=== PATIENT | male | born 1935 | race Caucasian/White ===

== ENCOUNTER 2016-09-17 14:38 | Inpatient (IN) | payer MEDICARE ==
[2016-09-17] MEDS ORDERED: FUROSEMIDE 10 MG/ML 4 ML VIAL IV STA (15:11)
[2016-09-17] MEDS ORDERED: NITROGLYCERIN OINT 1 INCH/GM PACKET TOPICAL STA (15:11)
--- NOTE | 2016-09-17 15:14 | ED ---
General Adult HPI - General Chief complaint: Recheck/Abnormal Lab/Rx Stated complaint: leg edema Time Seen by Provider: 09/17/16 15:01 Source: patient, RN notes reviewed Mode of arrival: wheelchair Limitations: no limitations - History of Present Illness Initial comments: Patient is a pleasant 81-year-old male presenting to the emergency department with leg edema. Patient did see Kary at Dr. Chen's office earlier today. Patient was advised Hospital for leg edema and bradycardia. Patient states otherwise he feels fine. Patient denies any chest pain. No dyspnea. Patient refuses breathing treatment states he regular does wheeze and takes nebulizers at home. Patient does not feel a dizziness at this time. No leg pain. No fevers. - Related Data Home Medications Medication Instructions Recorded Confirmed Atenolol [Tenormin] 25 mg PO BID 05/22/14 09/17/16 Donepezil HCl [Aricept] 10 mg PO BID 05/22/14 09/17/16 Escitalopram [Lexapro] 10 mg PO DAILY 05/22/14 09/17/16 Isosorbide Mononitrate [Imdur] 60 mg PO QAM 05/22/14 09/17/16 Albuterol Sulfate [Proair Hfa] 1 puff INHALATION RT-Q6H PRN 04/22/16 09/17/16 Atorvastatin [Lipitor] 10 mg PO DAILY 04/22/16 09/17/16 Azelastine HCl [Astepro] 2 spray EA NOSTRIL BID 04/22/16 09/17/16 Fluticasone/Salmeterol [Advair 1 puff INHALATION RT-BID 04/22/16 09/17/16 250-50 Diskus] Montelukast [Singulair] 10 mg PO DAILY 04/22/16 09/17/16 Potassium Chloride [K-Tab ER] 10 meq PO DAILY 04/22/16 09/17/16 Cholecalciferol [Vitamin D3] 1,000 unit PO DAILY 07/11/16 09/17/16 Furosemide 40 mg PO DAILY 07/11/16 09/17/16 Hydrochlorothiazide [Hydrodiuril] 25 mg PO DAILY 07/11/16 09/17/16 Aspirin EC [Ecotrin Low Dose] 81 mg PO DAILY 09/17/16 09/17/16 Mirabegron [Myrbetriq] 25 mg PO DAILY 09/17/16 09/17/16 Pramipexole Di-HCl [Mirapex] 0.5 - 1 mg PO HS 09/17/16 09/17/16 Allergies Allergy/AdvReac Type Severity Reaction Status Date / Time No Known Allergies Allergy Verified 09/17/16 15:36 Review of Systems ROS Statement: Those systems with pertinent positive or pertinent negative responses have been documented in the HPI. ROS Other: All systems not noted in ROS Statement are negative. Constitutional: Denies: fever, chills Eyes: Denies: eye pain ENT: Denies: ear pain Respiratory: Denies: cough, dyspnea Cardiovascular: Reports: edema. Denies: chest pain, palpitations Endocrine: Denies: fatigue Gastrointestinal: Denies: abdominal pain Genitourinary: Denies: dysuria Musculoskeletal: Denies: back pain Skin: Denies: rash Neurological: Denies: weakness Past Medical History Past Medical History: Asthma, Coronary Artery Disease (CAD), Cancer, Heart Failure, COPD, Dementia, Hyperlipidemia, Hypertension, Myocardial Infarction ([place] ) Additional Past Medical History / Comment(s): 1999 R lung cancer with surgery,04/22/16 admitted with CHF- EF 50-55% with metabolic encephalopathy, diverticular dx , bilateral tinnitis on occasion, sinus problems, pt denies any pancreatic problems (was documented in old medical record). Last Myocardial Infarction Date:: Unknown History of Any Multi-Drug Resistant Organisms: None Reported Past Surgical History: Adenoidectomy, Coronary Bypass/CABG, Heart Catheterization, Hernia Repair, Tonsillectomy Additional Past Surgical History / Comment(s): 1999 R lung resection, 2007 AAA repair, L caratid endartectomy, bilateral cataract surgery, inguinal hernia surgery and anothe large abdominal hernia surgery per pt, colonoscopy. Past Anesthesia/Blood Transfusion Reactions: No Reported Reaction Past Psychological History: No Psychological Hx Reported Additional Psychological History / Comment(s): Pt resides with his spouse. He uses no assistive device. He drives. Smoking Status: Former smoker Past Alcohol Use History: None Reported, Rare Additional Past Alcohol Use History / Comment(s): Pt smoked from [id number]. He has a rare glass of wine. Past Drug Use History: None Reported - Past Family History Mother Family Medical History: Rheumatoid Arthritis (RA) Father History Unknown: Yes General Exam Limitations: no limitations General appearance: alert, in no apparent distress Head exam: Present: atraumatic, normocephalic Eye exam: Present: normal appearance, PERRL ENT exam: Present: normal oropharynx Neck exam: Present: normal inspection Respiratory exam: Present: wheezes Cardiovascular Exam: Present: bradycardia, irregular rhythm GI/Abdominal exam: Present: soft. Absent: tenderness Extremities exam: Present: pedal edema (+3 bilateral). Absent: calf tenderness Neurological exam: Present: alert Psychiatric exam: Present: normal affect, normal mood Skin exam: Absent: rash Course Vital Signs 09/17/16 09/17/16 09/17/16 14:46 15:01 15:40 Temperature 97.0 F L Pulse Rate 52 L 50 L Pulse Rate [ 50 L [employer] ] Respiratory 18 Rate Blood Pressure 164/69 O2 Sat by Pulse 91 L 96 Oximetry EKG Findings - EKG Comments: EKG Findings:: Sinus bradycardia at 59. First-degree AV block with a TN of 252. Frequent consecutive PVCs. QRS 92. QT 470. QTc 465. Normal axis. Normal QRS. Nonspecific ST-T. Medical Decision Making - Medical Decision Making Patient reexamined and resting comfortably in bed. Patient and family updated on results and plan. Case was discussed in detail with Dr. Gomez, who will admit for Dr. chen. - Lab Data Result diagrams: 09/17/16 15:16 09/17/16 15:16 Lab Results 09/17/16 09/17/16 09/17/16 Range/Units 15:16 15:16 15:16 WBC 6.5 (3.8-10.6) k/uL RBC 4.60 (4.30-5.90) m/uL Hgb 13.5 (13.0-17.5) gm/dL Hct 44.0 (39.0-53.0) % MCV 95.6 (80.0-100.0) fL MCH 29.4 (25.0-35.0) pg MCHC 30.7 L (31.0-37.0) g/dL RDW 13.7 (11.5-15.5) % Plt Count 157 (150-450) k/uL Neutrophils % 56 % Lymphocytes % 30 % Monocytes % 9 % Eosinophils % 2 % Basophils % 0 % Neutrophils # 3.7 (1.3-7.7) k/uL Lymphocytes # 1.9 (1.0-4.8) k/uL Monocytes # 0.6 (0-1.0) k/uL Eosinophils # 0.2 (0-0.7) k/uL Basophils # 0.0 (0-0.2) k/uL Hypochromasia Moderate PT (9.0-12.0) sec INR (<1.1) APTT (22.0-30.0) sec Sodium 145 (137-145) mmol/L Potassium 3.9 (3.5-5.1) mmol/L Chloride 102 (98-107) mmol/L Carbon Dioxide 30 (22-30) mmol/L Anion Gap 13 mmol/L BUN 33 H (9-20) mg/dL Creatinine 1.57 H (0.66-1.25) mg/dL Est GFR (MDRD) Af Amer 51 (>60 ml/min/1.73 sqM) Est GFR (MDRD) Non-Af 42 (>60 ml/min/1.73 sqM) Glucose 93 (74-99) mg/dL Calcium 8.7 (8.4-10.2) mg/dL Total Bilirubin 1.2 (0.2-1.3) mg/dL AST 27 (17-59) U/L ALT 30 (21-72) U/L Alkaline Phosphatase 72 (38-126) U/L Total Creatine Kinase 46 L (55-170) U/L CK-MB (CK-2) 1.1 (0.0-2.4) ng/mL CK-MB (CK-2) Rel Index 2.4 Troponin I 0.018 (0.000-0.034) ng/mL NT-Pro-B Natriuret Pep pg/mL Total Protein 6.4 (6.3-8.2) g/dL Albumin 3.4 L (3.5-5.0) g/dL 09/17/16 09/17/16 Range/Units 15:16 15:16 WBC (3.8-10.6) k/uL RBC (4.30-5.90) m/uL Hgb (13.0-17.5) gm/dL Hct (39.0-53.0) % MCV (80.0-100.0) fL MCH (25.0-35.0) pg MCHC (31.0-37.0) g/dL RDW (11.5-15.5) % Plt Count (150-450) k/uL Neutrophils % % Lymphocytes % % Monocytes % % Eosinophils % % Basophils % % Neutrophils # (1.3-7.7) k/uL Lymphocytes # (1.0-4.8) k/uL Monocytes # (0-1.0) k/uL Eosinophils # (0-0.7) k/uL Basophils # (0-0.2) k/uL Hypochromasia PT 12.1 H (9.0-12.0) sec INR 1.2 (<1.1) APTT 25.8 (22.0-30.0) sec Sodium (137-145) mmol/L Potassium (3.5-5.1) mmol/L Chloride (98-107) mmol/L Carbon Dioxide (22-30) mmol/L Anion Gap mmol/L BUN (9-20) mg/dL Creatinine (0.66-1.25) mg/dL Est GFR (MDRD) Af Amer (>60 ml/min/1.73 sqM) Est GFR (MDRD) Non-Af (>60 ml/min/1.73 sqM) Glucose (74-99) mg/dL Calcium (8.4-10.2) mg/dL Total Bilirubin (0.2-1.3) mg/dL AST (17-59) U/L ALT (21-72) U/L Alkaline Phosphatase (38-126) U/L Total Creatine Kinase (55-170) U/L CK-MB (CK-2) (0.0-2.4) ng/mL CK-MB (CK-2) Rel Index Troponin I (0.000-0.034) ng/mL NT-Pro-B Natriuret Pep 6450 pg/mL Total Protein (6.3-8.2) g/dL Albumin (3.5-5.0) g/dL - Radiology Data Interpreted by me: Chest x-ray concerning for congestive heart failure Disposition Clinical Impression: CHF (congestive heart failure) Disposition: ADMITTED IP TO THIS HOSP
[2016-09-17 15:24] LABS: Basophils % (A) 0 %; CH 29.7; CHCM 31.3; Eosinophils # (A) 0.2 k/uL (0-0.7); Eosinophils % (A) 2 %; HDW 2.93; HGB 13.5 gm/dL (13.0-17.5); Hypochromasia Moderate; Luc # (Auto) 0.18; Luc % (Auto) 3; Lymphocytes # (A) 1.9 k/uL (1.0-4.8); Lymphocytes % (A) 30 %; MCH 29.4 pg (25.0-35.0); MCHC 30.7 g/dL (31.0-37.0); MCV 95.6 fL (80.0-100.0); Mean Platelet Volume 8.2; Monocytes # (A) 0.6 k/uL (0-1.0); Monocytes % (A) 9 %; Neutrophils # (A) 3.7 k/uL (1.3-7.7); Neutrophils % (A) 56 %; RDW 13.7 % (11.5-15.5); WBC 6.5 k/uL (3.8-10.6); WBC (Perox) 6.71
[2016-09-17 15:32] LABS: INR 1.2 (<1.1); Partial Thromboplastin Time 25.8 sec (22.0-30.0); Prothrombin Time 12.1 sec (9.0-12.0)
[2016-09-17 15:33] LABS: Calcium 8.7 mg/dL (8.4-10.2); Potassium 3.9 mmol/L (3.5-5.1); Total Bilirubin 1.2 mg/dL (0.2-1.3); Total Protein 6.4 g/dL (6.3-8.2)
[2016-09-17 15:55] LABS: Creatine Kinase MB 1.1 ng/mL (0.0-2.4); Troponin I 0.018 ng/mL (0.000-0.034)
[2016-09-17] MEDS ORDERED: ASPIRIN 325 MG TAB PO STA (16:00)
--- NOTE | 2016-09-17 16:24 | XR ---
EXAMINATION TYPE: XR chest 2V DATE OF EXAM: 09/17/2016 3:50 PM COMPARISON: 07/11/2016 and 11/04/2012 HISTORY: 81-year-old male with difficulty breathing and leg swelling TECHNIQUE: AP and lateral views FINDINGS: Median sternotomy wires are present. Heart appears enlarged. Diffuse interstitial prominence further assessed as compared to prior exam. Right hilar prominence appears similar to 2013. There is increase d left basilar and retrocardiac opacity and some other scattered focal opacity suggested in the right midlung. IMPRESSION: 1. COPD. Correlate for superimposed CHF and pulmonary vascular congestion. 2. Unable to exclude small left pleural effusion with adjacent atelectasis and/or consolidation at th e left base. 3. Other scattered areas of focal opacity such as in the right midlung. Correlate to exclude any symp toms of pneumonia. These could represent areas of more confluent edema. Follow-up after treatment to ensure complete clearance.
[2016-09-17] MEDS ORDERED: IPRATROPIUM-ALBUTEROL 3 ML NEB INHALATION PRN ×2 (16:34→17:56)
[2016-09-17] MEDS: NITROGLYCERIN OINT 1 INCH/GM PACKET TOPICAL SCH ×2 (17:43→22:01)
[2016-09-17] MEDS ORDERED: ALBUTEROL NEBULIZED 2.5 MG/3 ML INHALATION PRN (17:59)
[2016-09-17] MEDS: MONTELUKAST 10 MG TAB PO SCH (18:34)
[2016-09-17] MEDS: ATORVASTATIN 10 MG TAB PO SCH (18:34)
[2016-09-17] MEDS: CHOLECALCIFEROL 1,000 UNIT TAB PO SCH (18:34)
[2016-09-17] MEDS ORDERED: ATENOLOL 50 MG TAB PO SCH (21:00)
[2016-09-17] MEDS: SYMBICORT 80-4.5 MCG INHALER INHALATION SCH (21:03)
[2016-09-17] MEDS: IPRATROPIUM-ALBUTEROL 3 ML NEB INHALATION SCH (21:04)
[2016-09-17] MEDS: DONEPEZIL 10 MG TAB PO SCH (21:59)
[2016-09-17] MEDS: PRAMIPEXOLE 0.5 MG TAB PO SCH (22:00)
[2016-09-17] MEDS: FUROSEMIDE 10 MG/ML 4 ML VIAL IV SCH (22:01)
[2016-09-18] MEDS: AZELASTINE 137MCG/SPRAY EA NOSTRIL SCH ×3 (00:09→21:06)
[2016-09-18 06:40] LABS: Calcium 9.4 mg/dL (8.4-10.2); Potassium 4.2 mmol/L (3.5-5.1)
[2016-09-18 06:45] LABS: Basophils % (A) 1 %; CH 29.6; CHCM 31.1; Eosinophils # (A) 0.2 k/uL (0-0.7); Eosinophils % (A) 3 %; HCT 46.8 % (39.0-53.0); HDW 2.92; HGB 14.7 gm/dL (13.0-17.5); Hypochromasia Moderate; Luc # (Auto) 0.15; Luc % (Auto) 2; Lymphocytes % (A) 27 %; MCH 30.1 pg (25.0-35.0); MCHC 31.5 g/dL (31.0-37.0); MCV 95.4 fL (80.0-100.0); Mean Platelet Volume 7.8; Monocytes # (A) 0.6 k/uL (0-1.0); Monocytes % (A) 8 %; Neutrophils # (A) 4.4 k/uL (1.3-7.7); Neutrophils % (A) 60 %; RDW 13.7 % (11.5-15.5); WBC 7.4 k/uL (3.8-10.6)
[2016-09-18] MEDS: ATORVASTATIN 10 MG TAB PO SCH (08:11)
[2016-09-18] MEDS: ASPIRIN 81 MG CHEW PO SCH (08:11)
[2016-09-18] MEDS: FUROSEMIDE 10 MG/ML 4 ML VIAL IV SCH ×3 (08:11→21:07)
[2016-09-18] MEDS: DONEPEZIL 10 MG TAB PO SCH ×2 (08:12→21:06)
[2016-09-18] MEDS: ESCITALOPRAM 10 MG TAB PO SCH (08:12)
[2016-09-18] MEDS: ISOSORBIDE MONONITRATE ER 60 MG TAB.ER.24H PO SCH (08:12)
[2016-09-18] MEDS: NITROGLYCERIN OINT 1 INCH/GM PACKET TOPICAL SCH ×4 (08:13→21:07)
[2016-09-18] MEDS: MONTELUKAST 10 MG TAB PO SCH (08:13)
[2016-09-18] MEDS: IPRATROPIUM-ALBUTEROL 3 ML NEB INHALATION SCH ×4 (08:43→20:43)
[2016-09-18] MEDS: SYMBICORT 80-4.5 MCG INHALER INHALATION SCH ×2 (08:43→20:43)
[2016-09-18] MEDS ORDERED: ATENOLOL 25 MG TAB PO SCH (09:00)
[2016-09-18] MEDS: OXYBUTYNIN XL 5 MG TAB.ER.24 PO SCH (09:14)
--- NOTE | 2016-09-18 09:24 | P.CRDCN ---
History of Present Illness Consult date: 09/18/16 Requesting physician: Trevor Chen Reason for Consult (text): Bilateral leg swelling and redness Chief complaint: Bilateral leg swelling and redness History of present illness: This is a pleasant 81-year-old gentleman who follows regularly with Dr. Mcdonough in the office. He has a known history of hypertension, hyperlipidemia , coronary artery disease with prior bypass surgery, history of lung CA with prior lobectomy, COPD, hypothyroidism, he presents to the hospital with symptoms of bilateral leg swelling and redness which according to the patient has been going on for 5 days or more. Progressively getting worse. He denies any shortness of breath, denies PND or orthopnea. Chest x-ray on admission revealed COPD with mild pulmonary venous congestion. Unable to exclude small left pleural effusion. EKG on admission showed a sinus bradycardia with nonspecific ST-T wave changes and occasional PACs and PVCs. Blood pressure 136/ 60, heart rate in the 50s, 91% on 2 L oxygen. Lab data, WBC 7.4, hemoglobin 14.7, potassium 4.2, BUN 33, creatinine 1.4. Troponin 0.018, BNP level 6450. The patient was initiated on IV Lasix in the emergency room, weight is down 3 kg from admission. He continues to diurese well. At the time of my examination this morning, he denies any shortness of breath, lying flat in bed at the time of my examination. Denies any recent dizziness or lightheadedness, no palpitations, no chest discomfort. Past Medical History Past Medical History: Asthma, Coronary Artery Disease (CAD), Cancer, Heart Failure, COPD, Dementia, Hyperlipidemia, Hypertension, Myocardial Infarction ([place] ) Additional Past Medical History / Comment(s): 1999 R lung cancer with surgery,04/22/16 admitted with CHF- EF 50-55% with metabolic encephalopathy, diverticular dx , bilateral tinnitis on occasion, sinus problems, pt denies any pancreatic problems (was documented in old medical record). Last Myocardial Infarction Date:: Unknown History of Any Multi-Drug Resistant Organisms: None Reported Past Surgical History: Adenoidectomy, Coronary Bypass/CABG, Heart Catheterization, Hernia Repair, Tonsillectomy Additional Past Surgical History / Comment(s): 1999 R lung resection, 2007 AAA repair, L caratid endartectomy, bilateral cataract surgery, inguinal hernia surgery and anothe large abdominal hernia surgery per pt, colonoscopy. Past Anesthesia/Blood Transfusion Reactions: No Reported Reaction Past Psychological History: No Psychological Hx Reported Additional Psychological History / Comment(s): Pt resides with his spouse. He uses no assistive device. He drives. Smoking Status: Former smoker Past Alcohol Use History: None Reported, Rare Additional Past Alcohol Use History / Comment(s): Pt smoked from [id number]. He has a rare glass of wine. Past Drug Use History: None Reported - Past Family History Mother Family Medical History: Rheumatoid Arthritis (RA) Father History Unknown: Yes Medications and Allergies Home Medications Medication Instructions Recorded Confirmed Type Atenolol [Tenormin] 25 mg PO BID 05/22/14 09/17/16 History Donepezil HCl [Aricept] 10 mg PO BID 05/22/14 09/17/16 History Escitalopram [Lexapro] 10 mg PO DAILY 05/22/14 09/17/16 History Isosorbide Mononitrate [Imdur] 60 mg PO QAM 05/22/14 09/17/16 History Albuterol Sulfate [Proair Hfa] 1 puff INHALATION RT-Q6H PRN 04/22/16 09/17/16 History Atorvastatin [Lipitor] 10 mg PO DAILY 04/22/16 09/17/16 History Azelastine HCl [Astepro] 2 spray EA NOSTRIL BID 04/22/16 09/17/16 History Fluticasone/Salmeterol [Advair 1 puff INHALATION RT-BID 04/22/16 09/17/16 History 250-50 Diskus] Montelukast [Singulair] 10 mg PO DAILY 04/22/16 09/17/16 History Potassium Chloride [K-Tab ER] 10 meq PO DAILY 04/22/16 09/17/16 History Cholecalciferol [Vitamin D3] 1,000 unit PO DAILY 07/11/16 09/17/16 History Furosemide 40 mg PO DAILY 07/11/16 09/17/16 History Hydrochlorothiazide [Hydrodiuril] 25 mg PO DAILY 07/11/16 09/17/16 History Aspirin EC [Ecotrin Low Dose] 81 mg PO DAILY 09/17/16 09/17/16 History Mirabegron [Myrbetriq] 25 mg PO DAILY 09/17/16 09/17/16 History Pramipexole Di-HCl [Mirapex] 0.5 - 1 mg PO HS 09/17/16 09/17/16 History Allergies Allergy/AdvReac Type Severity Reaction Status Date / Time No Known Allergies Allergy Verified 09/17/16 15:36 Physical Exam Vitals: Vital Signs Temp Pulse Pulse Resp BP BP Pulse Ox 09/18/16 09:01 56 L 09/18/16 08:43 56 L 09/18/16 08:00 97.1 F L 48 L 16 137/61 91 L 09/18/16 03:35 96.6 F L 50 L 16 131/60 93 L 09/18/16 00:00 97.2 F L 56 L 17 161/71 93 L 09/17/16 21:15 55 L 09/17/16 21:05 55 L 93 L 09/17/16 20:00 96.6 F L 52 L 19 141/63 90 L 09/17/16 17:32 55 L 18 09/17/16 17:31 96.8 F L 55 L 18 130/60 91 L 09/17/16 16:41 97.0 F L 59 L 16 163/71 97 09/17/16 16:15 97.8 F 55 L 18 130/60 91 L 09/17/16 16:01 51 L 150/79 Intake and Output 09/17/16 09/18/16 09/18/16 22:59 06:59 14:59 Intake Total 476 Output Total 550 1175 200 Balance -74 -1175 -200 Intake: Oral 476 Output: Urine 550 1175 200 Other: Voiding Method Urinal Urinal Urinal # Voids 1 1 Weight 80.739 kg 77.6 kg PHYSICAL EXAMINATION: HEENT: Head is atraumatic, normocephalic. Pupils equal, round. Neck is supple. There is no elevated jugular venous pressure. HEART EXAMINATION: S1 and S2 systolic murmur is heard. CHEST EXAMINATION: Lungs reveal diminished air entry bilaterally, left greater than the right, scattered fine wheezing throughout. ABDOMEN: Soft, nontender. Bowel sounds are heard. No organomegaly noted. EXTREMITIES: 2+ peripheral pulses with 1+ evidence of peripheral edema and no calf tenderness noted. Bilateral lower leg redness noted NEUROLOGIC patient is awake, alert and oriented -3. . Results 09/18/16 05:46 09/18/16 05:46 CBC 09/18/16 Range/Units 05:46 WBC 7.4 (3.8-10.6) k/uL RBC 4.90 (4.30-5.90) m/uL Hgb 14.7 (13.0-17.5) gm/dL Hct 46.8 (39.0-53.0) % Plt Count 172 (150-450) k/uL Comprehensive Metabolic Panel 09/18/16 Range/Units 05:46 Sodium 144 (137-145) mmol/L Potassium 4.2 (3.5-5.1) mmol/L Chloride 99 (98-107) mmol/L Carbon Dioxide 31 H (22-30) mmol/L BUN 33 H (9-20) mg/dL Creatinine 1.40 H (0.66-1.25) mg/dL Glucose 79 (74-99) mg/dL Calcium 9.4 (8.4-10.2) mg/dL Current Medications Generic Name Dose Route Start Last Admin Trade Name Freq PRN Reason Stop Dose Admin Albuterol Sulfate 2.5 mg 09/17/16 17:59 Ventolin Nebulized INHALATION RT-Q4H PRN Shortness Of Breath Or Wheezing Albuterol/Ipratropium 3 ml 09/17/16 20:00 09/18/16 08:43 Duoneb 0.5 Mg-3 Mg/3 Ml Soln INHALATION 3 ml RT-QID LOPEZ Administration Aspirin 81 mg 09/18/16 09:00 09/18/16 08:11 Aspirin PO 81 mg DAILY LOPEZ Administration Atenolol 25 mg 09/18/16 09:00 09/18/16 08:12 Tenormin PO 25 mg BID LOPEZ Administration Atorvastatin Calcium 10 mg 09/17/16 18:00 09/18/16 08:11 Lipitor PO 10 mg DAILY LOPEZ Administration Azelastine HCl 2 spray 09/17/16 21:00 09/18/16 08:11 Astepro EA NOSTRIL 2 spray BID LOPEZ Administration Budesonide/Formoterol Fumarate 2 puff 09/17/16 20:00 09/18/16 08:43 Symbicort 80-4.5 Mcg Inhaler INHALATION 2 puff RT-BID LOPEZ Administration Cholecalciferol 1,000 unit 09/17/16 18:00 09/17/16 18:34 Vitamin D3 PO Not Given 1200 LOPEZ Donepezil HCl 10 mg 09/17/16 21:00 09/18/16 08:12 Aricept PO 10 mg BID LOPEZ Administration Escitalopram Oxalate 10 mg 09/18/16 09:00 09/18/16 08:12 Lexapro PO 10 mg DAILY LOPEZ Administration Furosemide 40 mg 09/18/16 00:00 09/18/16 08:11 Lasix IV 40 mg Q8H LOPEZ Administration Isosorbide Mononitrate 60 mg 09/18/16 09:00 09/18/16 08:12 Imdur PO 60 mg QAM LOPEZ Administration Montelukast Sodium 10 mg 09/17/16 18:00 09/18/16 08:13 Singulair PO 10 mg DAILY LOPEZ Administration Nitroglycerin 1 inch 09/17/16 18:00 09/18/16 08:13 Nitro-Bid Oint TOPICAL Not Given QID [facility] Oxybutynin Chloride 5 mg 09/18/16 09:00 Ditropan Xl PO DAILY [facility] Pramipexole Dihydrochloride 1 mg 09/17/16 21:00 09/17/16 22:00 Mirapex PO 1 mg HS LOPEZ Administration Sodium Chloride 10 ml 09/17/16 21:00 09/18/16 08:14 Saline Flush IV 10 ml BID LOPEZ Administration Intake and Output 09/17/16 09/18/16 09/18/16 22:59 06:59 14:59 Intake Total 476 Output Total 550 1175 200 Balance -74 -1175 -200 Intake: Oral 476 Output: Urine 550 1175 200 Other: Voiding Method Urinal Urinal Urinal # Voids 1 1 Weight 80.739 kg 77.6 kg 09/18/16 05:46 09/18/16 05:46 EKG Interpretations (text) EKG shows a sinus bradycardia with occasional PACs and PVCs, nonspecific ST-T wave changes. Assessment and Plan Plan: Assessment and plan #1 congestive cardiac failure, diastolic in nature, most recent echocardiogram with Doppler study was performed in April of last year which revealed an ejection fraction of 50-55%, moderate pulmonary hypertension. #2 hypertension #3 hyperlipidemia #4 known history of coronary artery disease with prior bypass surgery #5 COPD #6 hypothyroidism #7 history of lung CA with prior lobectomy. #8 bradycardia Plan Obtain an echocardiogram with Doppler study. We will also continue the patient on current dose of IV Lasix. Check free T4 and TSH, decreased dose of atenolol. Check daily lytes BUN and creatinine along with daily weights. Further recommendations to follow. DNP note has been reviewed, I agree with a documented findings and plan of care. Patient was seen and examined.
[2016-09-18] MEDS ORDERED: ASPIRIN 325 MG TAB PO SCH (12:00)
[2016-09-18] MEDS: CHOLECALCIFEROL 1,000 UNIT TAB PO SCH (13:16)
[2016-09-18] MEDS ORDERED: TEMAZEPAM 7.5 MG CAP PO PRN (13:21)
[2016-09-18] MEDS ORDERED: ALBUTEROL NEBULIZED 2.5 MG/3 ML INHALATION PRN (14:42)
[2016-09-18] MEDS ORDERED: HYDROcodone/APAP 5-325MG 1 EACH TAB PO PRN (14:44)
[2016-09-18] MEDS ORDERED: ALPRAZolam 0.25 MG TAB PO PRN (14:44)
--- NOTE | 2016-09-18 15:45 | HP ---
DATE OF ADMISSION: 09/18/2016 CHIEF COMPLAINT: Bilateral leg swelling and erythema and redness. HISTORY OF PRESENT ILLNESS: This 81-year-old gentleman with a past history of CHF with ejection fraction 50% to 55% ( ) history of COPD, history of dementia, hypertension, history of myocardial infarction, history of right lung cancer with surgery, history of CAD, CABG, history of nicotine dependence being followed by Dr. Trevor Chen as an outpatient is complaining of pain and swelling of both lower limbs for about 1-1/2 weeks. With increasing difficulty, the patient went to Dr. Chen's office and directly admitted to [facility] for further evaluation and treatment. There was no history of any fever, rigors, chills. No history of headache, loss of consciousness, seizures at this time. Cardiology evaluation in progress. PAST MEDICAL HISTORY: History of asthma, history of CAD, CHF, COPD, dementia, hypertension, hyperlipidemia, myocardial infarction, CABG, history of nicotine dependence. Medications prior to admission include home medications are: 1. Mirapex 0.5 to 1 mg q.h.s. 2. K-Tab ER 10 mg p.o. daily. 3. Singulair 10 mg daily. 4. Mirabegron 25 mg p.o. daily. 5. Imdur 60 mg q.a.m. 6. HydroDIURIL 25 mg daily. 7. Lasix 40 mg daily. 8. Advair 250/50 1 puff b.i.d. 9. Lexapro 10 mg p.o. daily. 10. Aricept 10 mg p.o. b.i.d. 11. Vitamin D3 1000 daily. 12. Astepro 2 sprays b.i.d. 13. Lipitor 10 mg p.o. daily. 14. Tenormin 25 mg b.i.d. 15. Ecotrin 81 mg p.o. daily. 16. ProAir HFA 1 puff every 6 hours p.r.n. Allergies are none. FAMILY HISTORY: History of rheumatoid arthritis in the family. SOCIAL HISTORY: Previous history of smoking. Recreational alcohol intake. REVIEW OF SYSTEMS: ENT: Diminished hearing. Diminished vision. CARDIOVASCULAR: No angina, palpitations. RESPIRATORY: As mentioned earlier. GI: No nausea. : No dysuria. NERVOUS: No numbness or weakness. ALLERGY/IMMUNOLOGY: No asthma or hay fever. MUSCULOSKELETAL: As mentioned earlier. HEMATOLOGY/ONCOLOGY: No history of anemia. ENDOCRINE: Negative. CONSTITUTIONAL: Negative. DERMATOLOGY: As mentioned earlier. PSYCHIATRY: As mentioned earlier. PHYSICAL EXAM: Alert and oriented x3. Pulse is 53, blood pressure 123/64, respirations 18, temperature 96.8, pulse ox 94% on 3L. HEENT: Conjunctivae normal. Oral mucosa moist. NECK: Jugular venous distension improved. CARDIOVASCULAR SYSTEM: S1 and S2 muffled. No S3. No S4. RESPIRATORY: Breath sounds diminished in the bases. A few scattered rhonchi. No crackles. Abdomen is soft, nontender. No mass palpable. LEGS: Bilateral leg edema and erythema and tenderness. Pulses diminished bilaterally. NERVOUS SYSTEM: Higher function as mentioned. Moves all 4 limbs. No focal motor or sensory deficits. LYMPHATIC: No lymph nodes palpable in neck, axillae or groin. SKIN: No ulcer, rash or bleeding. Labs at this time show CBC within normal limits. ( ) 1.40 and TSH is 4.98 and free T4 is 1.2. ASSESSMENT: 1. Congestive heart failure, acute exacerbation, with acute on chronic diastolic dysfunction, ejection fraction about 50% to 55%. 2. Bilateral leg cellulitis. 3. Chronic kidney disease stage 3. 4. Bilateral leg edema. 5. Moderate pulmonary hypertension. 6. Hypertension. 7. Hyperlipidemia. 8. History of coronary artery disease, coronary artery bypass grafting. 9. Chronic obstructive pulmonary disease. 10. Hypothyroidism. 11. History of right lung cancer with surgery, lobectomy. 12. History of dementia. 13. History of metabolic encephalopathy. 14. History of adenoidectomy. 15. History of abdominal aortic aneurysm repair. 16. History of cataracts. 17. Remote history of nicotine dependence. 18. FULL CODE. RECOMMENDATIONS AND DISCUSSION: In this 81-year-old gentleman who presented with multiple complex medical issues, we will monitor the patient closely, continue the current medications. Recommend to continue current medications, continue symptomatic treatment. Otherwise, continue with IV diuretics. Monitor fluid- electrolyte balance closely. I would also recommend broad-spectrum IV antibiotics, DVT prophylaxis. Guarded prognosis because of multiple complex medical issues. Further recommendations to follow. A copy of this dictation will be forwarded to Dr. Trevor Chen, who is the primary care physician.
[2016-09-18] MEDS: ceFAZolin 2 GM in SODIUM CHLORIDE 0.9% 100 ML IVPB SCH ×2 (16:13→23:41)
[2016-09-18] MEDS: PRAMIPEXOLE 0.5 MG TAB PO SCH (21:06)
[2016-09-18] MEDS: MELATONIN 3 MG TABLET PO SCH (21:06)
[2016-09-19 06:33] LABS: Basophils % (A) 1 %; CH 29.7; CHCM 31.3; Eosinophils # (A) 0.3 k/uL (0-0.7); Eosinophils % (A) 4 %; HCT 43.4 % (39.0-53.0); HDW 2.92; HGB 13.9 gm/dL (13.0-17.5); Hypochromasia Slight; Luc # (Auto) 0.16; Luc % (Auto) 2; Lymphocytes % (A) 29 %; MCH 30.4 pg (25.0-35.0); MCV 95.2 fL (80.0-100.0); Mean Platelet Volume 7.7; Monocytes # (A) 0.6 k/uL (0-1.0); Monocytes % (A) 8 %; Neutrophils # (A) 3.8 k/uL (1.3-7.7); Neutrophils % (A) 56 %; RBC 4.56 m/uL (4.30-5.90); RDW 13.6 % (11.5-15.5); WBC 6.9 k/uL (3.8-10.6); WBC (Perox) 6.85
[2016-09-19 06:46] LABS: Calcium 8.6 mg/dL (8.4-10.2); Potassium 3.4 mmol/L (3.5-5.1)
[2016-09-19] MEDS: FUROSEMIDE 10 MG/ML 4 ML VIAL IV SCH ×3 (08:25→21:14)
[2016-09-19] MEDS: NITROGLYCERIN OINT 1 INCH/GM PACKET TOPICAL SCH ×4 (08:25→21:14)
[2016-09-19] MEDS: ATORVASTATIN 10 MG TAB PO SCH (08:26)
[2016-09-19] MEDS: MONTELUKAST 10 MG TAB PO SCH (08:26)
[2016-09-19] MEDS: POTASSIUM CHLORIDE ER 10 MEQ TAB.ER.PRT PO SCH (08:26)
[2016-09-19] MEDS: ATENOLOL 25 MG TAB PO SCH (08:27)
[2016-09-19] MEDS: OXYBUTYNIN XL 5 MG TAB.ER.24 PO SCH (08:27)
[2016-09-19] MEDS: ESCITALOPRAM 10 MG TAB PO SCH (08:27)
[2016-09-19] MEDS: ASPIRIN 81 MG CHEW PO SCH (08:27)
[2016-09-19] MEDS: ISOSORBIDE MONONITRATE ER 60 MG TAB.ER.24H PO SCH (08:27)
[2016-09-19] MEDS: DONEPEZIL 10 MG TAB PO SCH ×2 (08:28→21:15)
[2016-09-19] MEDS: ceFAZolin 2 GM in SODIUM CHLORIDE 0.9% 100 ML IVPB SCH ×3 (08:28→23:47)
[2016-09-19] MEDS: AZELASTINE 137MCG/SPRAY EA NOSTRIL SCH ×2 (08:42→21:15)
[2016-09-19] MEDS: SYMBICORT 80-4.5 MCG INHALER INHALATION SCH ×2 (09:12→19:23)
[2016-09-19] MEDS: IPRATROPIUM-ALBUTEROL 3 ML NEB INHALATION SCH ×4 (09:12→19:23)
--- NOTE | 2016-09-19 10:40 | ECHOF ---
Referral Reason:chf MEASUREMENTS -------- HEIGHT: 167.6 cm WEIGHT: 77.6 kg BP: RVIDd: 3.4 cm (< 3.3) IVSd: 1.3 cm (0.6 - 1.1) LVIDd: 4.2 cm (3.9 - 5.3) LVPWd: 1.2 cm (0.6 - 1.1) IVSs: 1.9 cm LVIDs: 3.0 cm LVPWs: 1.5 cm LA Diam: 4.4 cm (2.7 - 3.8) Ao Diam: 3.6 cm (2.0 - 3.7) AV Cusp: 1.9 cm (1.5 - 2.6) LA Diam: 3.6 cm (2.7 - 3.8) MV EXCURSION: 20.824 mm (> 18.000) MV EF SLOPE: 123 mm/s (70 - 150) EPSS: 0.9 cm MV E Taqueria: 0.71 m/s MV DecT: 250 ms MV A Taqueria: 0.57 m/s MV E/A Ratio: 1.25 RAP: 5.00 mmHg RVSP: 47.82 mmHg FINDINGS -------- Resting bradycardia (HR<60bpm). This was a technically adequate study. There is mild concentric left ventricular hypertrophy. Overall left ventricular systolic function is low-normal with, an EF between 50 - 55 %. The right ventricle is mildly enlarged. The left atrium is moderately dilated. The right atrial size is normal. Aortic valve is trileaflet and is mildly thickened. The mitral valve leaflets are mildly thickened. Mild mitral annular calcification present. There is trace mitral regurgitation. Mild tricuspid regurgitation present. There is mild to moderate pulmonary hypertension. Trace/mild (physiologic) pulmonic regurgitation. The aortic root size is normal. The inferior vena cava is mildly dilated. The pericardium is normal. CONCLUSIONS -------- 1. Resting bradycardia (HR<60bpm). 2. Mild mitral annular calcification present. 3. There is trace mitral regurgitation. 4. Mild tricuspid regurgitation present. 5. Trace/mild (physiologic) pulmonic regurgitation. 6. The aortic root size is normal. 7. The inferior vena cava is mildly dilated. 8. The pericardium is normal. 9. This was a technically adequate study. 10. There is mild concentric left ventricular hypertrophy. 11. Overall left ventricular systolic function is low-normal with, an EF between 50 - 55 %. 12. The right ventricle is mildly enlarged. 13. The left atrium is moderately dilated. 14. The right atrial size is normal. 15. Aortic valve is trileaflet and is mildly thickened. 16. The mitral valve leaflets are mildly thickened. HEAD OF [employer]: Eliecer Messina RDCS
[2016-09-19] MEDS: MULTIVITAMINS, THERA 1 EACH TAB PO SCH (11:42)
[2016-09-19] MEDS: CHOLECALCIFEROL 1,000 UNIT TAB PO SCH (11:42)
[2016-09-19 14:37] VITALS: BMI 27.6
--- NOTE | 2016-09-19 16:09 | P.PN ---
Subjective History of present illness: This is a pleasant 81-year-old gentleman who follows regularly with Dr. Mcdonough in the office. He has a known history of hypertension, hyperlipidemia , coronary artery disease with prior bypass surgery, history of lung CA with prior lobectomy, COPD, hypothyroidism, he presents to the hospital with symptoms of bilateral leg swelling and redness which according to the patient has been going on for 5 days or more. Progressively getting worse. Patient was also noted to be bradycardic, beta neelam was placed on hold. TSH level 4.9, suggesting hypothyroidism. Patient was initiated on IV Lasix, has diuresed well through the night last night. Overall he states he is feeling much better today. Creatinine today is 1.5, potassium is 3.4 which will be replaced. Objective - Vital Signs Vital signs: Vital Signs Temp 97.0 F L 09/19/16 11:25 Pulse 84 09/19/16 15:40 Resp 18 09/19/16 11:25 BP 129/52 09/19/16 11:25 Pulse Ox 95 09/19/16 11:25 Intake & Output 09/18/16 09/19/16 09/19/16 18:59 06:59 18:59 Intake Total 360 750 616 Output Total 2400 200 400 Balance -2040 550 216 Weight 77.5 kg 77.5 kg Intake: Intake, IV Titration 100 Amount ceFAZolin 2 gm In Sodium 100 Chloride 0.9% 100 ml @ 100 mls/hr IVPB Q8HR [facility] Rx#:[id number] Oral 360 750 516 Output: Urine 2400 200 400 Other: Voiding Method Urinal Urinal Urinal # Voids 1 1 2 - Exam PHYSICAL EXAMINATION: HEENT: Head is atraumatic, normocephalic. Pupils equal, round. Neck is supple. There is no elevated jugular venous pressure. HEART EXAMINATION: S1 and S2 systolic murmur is heard. CHEST EXAMINATION: Lungs reveal diminished air entry bilaterally, left greater than the right, scattered fine wheezing throughout. ABDOMEN: Soft, nontender. Bowel sounds are heard. No organomegaly noted. EXTREMITIES: 2+ peripheral pulses with 1+ evidence of peripheral edema and no calf tenderness noted. Bilateral lower leg redness noted NEUROLOGIC patient is awake, alert and oriented -3. - Labs CBC & Chem 7: 09/19/16 06:15 09/19/16 06:15 Labs: Abnormal Lab Results - Last 24 Hours (Table) 09/19/16 Range/Units 06:15 Potassium 3.4 L (3.5-5.1) mmol/L Chloride 95 L (98-107) mmol/L Carbon Dioxide 36 H (22-30) mmol/L BUN 36 H (9-20) mg/dL Creatinine 1.55 H (0.66-1.25) mg/dL Assessment and Plan Plan: Assessment and plan #1 congestive cardiac failure, diastolic in nature, repeat echocardiogram with Doppler study revealed an ejection fraction of 50-55%.. #2 hypertension #3 hyperlipidemia #4 known history of coronary artery disease with prior bypass surgery #5 COPD #6 hypothyroidism #7 history of lung CA with prior lobectomy. #8 bradycardia Plan From cardiology's perspective, we'll continue IV Lasix for another 24 hours. Continue to hold beta neelam. DNP note has been reviewed, I agree with a documented findings and plan of care. Patient was seen and examined.
[2016-09-19] MEDS ORDERED: POTASSIUM CHLORIDE ER 20 MEQ TAB.ER PO STA (20:04)
[2016-09-19] MEDS: PRAMIPEXOLE 0.5 MG TAB PO SCH (21:14)
[2016-09-19] MEDS: MELATONIN 3 MG TABLET PO SCH (21:15)
[2016-09-20 06:17] LABS: Basophils % (A) 1 %; CH 29.8; CHCM 31.7; Eosinophils # (A) 0.4 k/uL (0-0.7); Eosinophils % (A) 6 %; HCT 40.1 % (39.0-53.0); HDW 2.89; Hypochromasia Slight; Luc # (Auto) 0.17; Luc % (Auto) 3; Lymphocytes # (A) 1.4 k/uL (1.0-4.8); Lymphocytes % (A) 23 %; MCH 30.5 pg (25.0-35.0); MCHC 32.3 g/dL (31.0-37.0); MCV 94.3 fL (80.0-100.0); Mean Platelet Volume 8.1; Monocytes # (A) 0.6 k/uL (0-1.0); Monocytes % (A) 9 %; Neutrophils # (A) 3.7 k/uL (1.3-7.7); Neutrophils % (A) 58 %; RBC 4.25 m/uL (4.30-5.90); RDW 13.5 % (11.5-15.5); WBC 6.3 k/uL (3.8-10.6)
[2016-09-20 06:19] LABS: Calcium 8.2 mg/dL (8.4-10.2); Magnesium 1.6 mg/dL (1.6-2.3); Potassium 3.5 mmol/L (3.5-5.1)
[2016-09-20 08:43] VITALS: TEMP 97.5
[2016-09-20] MEDS: FUROSEMIDE 10 MG/ML 4 ML VIAL IV SCH (08:55)
[2016-09-20] MEDS: ceFAZolin 2 GM in SODIUM CHLORIDE 0.9% 100 ML IVPB SCH (08:55)
[2016-09-20] MEDS: AZELASTINE 137MCG/SPRAY EA NOSTRIL SCH (08:56)
[2016-09-20] MEDS: ATORVASTATIN 10 MG TAB PO SCH (08:56)
[2016-09-20] MEDS: ASPIRIN 81 MG CHEW PO SCH (08:56)
[2016-09-20] MEDS: ATENOLOL 25 MG TAB PO SCH (08:56)
[2016-09-20] MEDS: ISOSORBIDE MONONITRATE ER 60 MG TAB.ER.24H PO SCH (08:57)
[2016-09-20] MEDS: ESCITALOPRAM 10 MG TAB PO SCH (08:57)
[2016-09-20] MEDS: NITROGLYCERIN OINT 1 INCH/GM PACKET TOPICAL SCH ×2 (08:57→13:09)
[2016-09-20] MEDS: DONEPEZIL 10 MG TAB PO SCH (08:57)
[2016-09-20] MEDS: OXYBUTYNIN XL 5 MG TAB.ER.24 PO SCH (08:57)
[2016-09-20] MEDS: MONTELUKAST 10 MG TAB PO SCH (08:57)
[2016-09-20] MEDS: POTASSIUM CHLORIDE ER 10 MEQ TAB.ER.PRT PO SCH (08:58)
[2016-09-20] MEDS: IPRATROPIUM-ALBUTEROL 3 ML NEB INHALATION SCH ×2 (09:03→12:01)
[2016-09-20] MEDS: SYMBICORT 80-4.5 MCG INHALER INHALATION SCH (09:03)
--- NOTE | 2016-09-20 09:47 | PN ---
DATE OF SERVICE: 09/19/2016 This 81-year-old gentleman who was admitted with CHF acute exacerbation is being closely monitored. Seen and evaluated the patient along with nurse practitioner. Please refer to the nurse practitioner notes and impression documented as a scribe for further information. The patient also cellulitis also.
[2016-09-20] MEDS ORDERED: Potassium Replacement Protocol 1 EACH MISC MISCELLANE PRN (10:42)
[2016-09-20] MEDS ORDERED: Magnesium Replacement Protocol 1 EACH MISC MISCELLANE PRN (10:42)
[2016-09-20] MEDS: MAGNESIUM SULFATE-D5W PMX 1 GM in DEXTROSE/WATER 1 100ML.BAG IVPB SCH ×2 (11:52→13:08)
[2016-09-20] MEDS: MULTIVITAMINS, THERA 1 EACH TAB PO SCH (11:53)
[2016-09-20] MEDS: POTASSIUM CHLORIDE ER 20 MEQ TAB.ER PO SCH ×2 (11:53→13:08)
[2016-09-20] MEDS: CHOLECALCIFEROL 1,000 UNIT TAB PO SCH (11:53)
[2016-09-20 12:06] VITALS: BP 111/60; RESP 16
[2016-09-20 12:16] VITALS: PULSE 88
--- NOTE | 2016-09-20 14:37 | P.PN ---
Subjective Principal diagnosis: CHF History of present illness: This is a pleasant 81-year-old gentleman who follows regularly with Dr. Mcdonough in the office. He has a known history of hypertension, hyperlipidemia , coronary artery disease with prior bypass surgery, history of lung CA with prior lobectomy, COPD, hypothyroidism, he presents to the hospital with symptoms of bilateral leg swelling and redness which according to the patient has been going on for 5 days or more. Progressively getting worse. Patient was also noted to be bradycardic, beta neelam was placed on hold. TSH level 4.9, suggesting hypothyroidism. Patient was initiated on IV Lasix, has diuresed well through the night last night. Overall he states he is feeling much better today. Creatinine today is 1.4, potassium is 3.5. Objective - Vital Signs Vital signs: Vital Signs Temp 97.5 F L 09/20/16 08:40 Pulse 88 09/20/16 12:15 Resp 16 09/20/16 12:00 BP 111/60 09/20/16 11:50 Pulse Ox 93 L 09/20/16 11:50 Intake & Output 09/19/16 09/20/16 09/20/16 18:59 06:59 18:59 Intake Total 852 436 Output Total 800 500 400 Balance 52 -500 36 Weight 77.5 kg 77.1 kg Intake: Intake, IV Titration 100 Amount ceFAZolin 2 gm In Sodium 100 Chloride 0.9% 100 ml @ 100 mls/hr IVPB Q8HR [facility] Rx#:[id number] Oral 752 436 Output: Urine 800 500 400 Other: Voiding Method Urinal Urinal Urinal # Voids 2 # Bowel Movements 1 - Exam PHYSICAL EXAMINATION: HEENT: Head is atraumatic, normocephalic. Pupils equal, round. Neck is supple. There is no elevated jugular venous pressure. HEART EXAMINATION: S1 and S2 systolic murmur is heard. CHEST EXAMINATION: Lungs reveal diminished air entry bilaterally, left greater than the right, scattered fine wheezing throughout. ABDOMEN: Soft, nontender. Bowel sounds are heard. No organomegaly noted. EXTREMITIES: 2+ peripheral pulses with 1+ evidence of peripheral edema and no calf tenderness noted. Bilateral lower leg redness noted NEUROLOGIC patient is awake, alert and oriented -3. - Labs CBC & Chem 7: 09/20/16 05:28 01/05/17 05:28 Labs: Abnormal Lab Results - Last 24 Hours (Table) 09/20/16 09/20/16 Range/Units 05:28 05:28 RBC 4.25 L (4.30-5.90) m/uL Chloride 95 L (98-107) mmol/L Carbon Dioxide 37 H (22-30) mmol/L BUN 37 H (9-20) mg/dL Creatinine 1.45 H (0.66-1.25) mg/dL Calcium 8.2 L (8.4-10.2) mg/dL Assessment and Plan Plan: Assessment and plan #1 congestive cardiac failure, diastolic in nature, acute on chronic, repeat echocardiogram with Doppler study revealed an ejection fraction of 50-55%.. #2 hypertension #3 hyperlipidemia #4 known history of coronary artery disease with prior bypass surgery #5 COPD #6 hypothyroidism #7 history of lung CA with prior lobectomy. #8 bradycardia Plan From cardiology's perspective, we'll discontinue the IV Lasix and start patient on Lasix 40 mg one tablet by mouth twice a day. He may be able to be discharged home today from cardiology's perspective to follow-up in the office with Dr. Mcdonough in one week. DNP note has been reviewed, I agree with a documented findings and plan of care. Patient was seen and examined.
[2016-09-20] MEDS ORDERED: FUROSEMIDE 40 MG TAB PO SCH (16:00)
--- NOTE | 2016-09-20 17:39 | P.PN ---
Subjective Date of service 09/19/2016 Progress note being dictated for Dr. Lyons. Interval history: This is an 81-year-old gentleman admitted with acute CHF exacerbation, cellulitis and multiple other medical issues. Continues to diurese well on Lasix IV push with 24-hour I&O reflecting a negative fluid balance. Mildly worsened renal function. Potassium 3.4, currently being supplemented. Breathing improving. Renal neelam remains on hold for bradycardia, asymptomatic. Good appetite with no nausea vomiting or diarrhea. Complaining of bilateral lower extremity edema. Denies chest pain, palpitations or increasing shortness of breath. Objective - Vital Signs Vital signs: Vital Signs Temp 97.3 F L 09/18/16 16:00 Pulse 56 L 09/18/16 16:26 Resp 18 09/18/16 16:00 BP 129/45 09/18/16 16:00 Pulse Ox 95 09/18/16 16:00 Intake & Output 09/18/16 09/18/16 09/19/16 06:59 18:59 06:59 Intake Total 240 360 Output Total 1675 2400 Balance -1434 -2039 Weight 77.6 kg Intake: Oral 240 360 Output: Urine 4145 2400 Other: Voiding Method Urinal Urinal # Voids 1 - Exam PHYSICAL EXAM: VITAL SIGNS: As above GENERAL: [Sitting up in bed, no acute distress] HEENT: [Pupils equal conjunctiva normal.] NECK: [Supple, no JVD] RESPIRATORY EFFORT:[Mildly increased] LUNGS: [Bilateral bases diminished, no crackles, occasional scattered rhonchi.] CARDIOVASCULAR[regular S1 and S2, positive systolic murmur, positive edema] GI: [Abdomen soft, nontender, positive bowel sounds.] PSYCH: [Alert and oriented -3, mood and affect normal.] SKIN: [Bilateral lower extremities warm, edematous, reddened, nontender,] NEURO: No focal deficits, moves all 4 extremities, strength and sensation grossly intact - Labs CBC & Chem 7: 09/20/16 05:28 09/20/16 05:28 Labs: Abnormal Lab Results - Last 24 Hours (Table) 09/18/16 09/18/16 Range/Units 05:46 05:46 Carbon Dioxide 31 H (22-30) mmol/L BUN 33 H (9-20) mg/dL Creatinine 1.40 H (0.66-1.25) mg/dL TSH 4.980 H (0.465-4.680) mIU/L Assessment and Plan Plan: 1. Acute on chronic congestive heart failure exacerbation, diastolic dysfunction, EF 50-55%. 2. [Bilateral leg cellulitis]. 3. [Chronic kidney disease stage III]. 4. [Moderate pulmonary hypertension]. 5. [Hypertension]. 6. [Hyperlipidemia]. 7. [CAD with history of CABG]. 8. COPD 9. Hypothyroidism 10. History of right lung cancer with lobectomy 11. Dementia 12. Metabolic encephalopathy, 13. history of abdominal aortic aneurysm repair 14. Remote history of nicotine dependence 15. Bradycardia Plan: Continue on current medication regime , Lasix, monitoring and symptomatic treatment. Continue diuresing with IV Lasix as per cardiology. Close monitoring of electrolytes, renal function with repeat labs ordered for a.m. Silvadene, gauze, Nakul wrapped to be applied to bilateral lower legs-discussed with RN. Discharge planning in progress for tomorrow pending pulmonary clearance. The impression and plan of care has been dictated as directed. : I performed a H&P examination of this patient and discussed the same with the dictator. I agree with the dictator's note. Any additional findings/opinions/ etc. will be noted.
--- NOTE | 2016-09-21 13:51 | DS ---
DATE OF ADMISSION: 09/17/2016 DATE OF DISCHARGE: 09/20/2016 FINAL DIAGNOSES: 1. Congestive heart failure acute exacerbation with acute on chronic diastolic dysfunction, ejection fraction 50% to 55%. 2. Bilateral leg cellulitis. 3. Chronic kidney disease stage III. 4. Bilateral leg edema. 5. Moderate pulmonary hypertension. 6. Hypertension. 7. Hyperlipidemia. 8. History of coronary artery disease, CABG. 9. History of chronic obstructive pulmonary disease. 10. History of hypothyroidism. 11. History of right lung cancer with surgery, lobectomy. 12. History of dementia. 13. Metabolic encephalopathy. 14. History of adenoidectomy. 15. History of abdominal aortic aneurysm repair. 16. History of cataracts. 17. Remote history of nicotine dependence. 18. FULL CODE. DISCHARGE DISPOSITION: The patient will be discharged in a stable condition with guarded prognosis. Patient is keen on going home. Cardiology cleared the patient for discharge. HISTORY OF PRESENT ILLNESS: This 81-year-old gentleman with a past medical history of multiple medical problems admitted with CHF acute exacerbation with bilateral leg cellulitis. Patient was treated with IV antibiotics is and some diuretics. Patient improved significantly. On exam, vitals are stable. CARDIOVASCULAR: S1 and S2, muffled. ABDOMEN: Soft. RESPIRATORY: Clear to auscultation. NERVOUS SYSTEM: No focal deficits. LEGS: Bilateral leg cellulitis and swelling improved. DISCHARGE ADVICE: 1. Diet is cardiac, no added salt. 2. Activity limited until followup. 3. Follow up with Dr. Trevor Chen in 2 to 3 days. 4. CBC, BMP. 5. Follow up with Cardiology as advised. 6. Home care is being arranged. Medications are: 1. ProAir HFA 1 puff q.6 p.r.n. 2. Ecotrin 81 mg p.o. daily. 3. Tenormin 25 mg p.o. daily. 4. Lipitor 10 mg p.o. daily. 5. Astepro 2 sprays daily. 6. Keflex 500 mg p.o. q.i.d. for 5 days. 7. Vitamin D3, 1000 daily. 8. Aricept 10 mg p.o. b.i.d. 9. Lexapro 10 mg p.o. daily . 10. Fluticasone salmeterol that is Advair b.i.d. 11. Lasix 40 mg p.o. b.i.d. 12. Albuterol Atrovent updrafts q.i.d. and p.r.n. 13. Imdur 60 mg p.o. q. a.m. 14. Myrbetriq 25 mg p.o. daily. 15. Singulair 10 mg p.o. daily. 16. K-Tab 10 mEq p.o. daily. 17. Mirapex 0.5 to 1 mg q.h.s. Once again, the patient will be discharged in a stable condition with guarded prognosis.
== END 2016-09-20 15:18 | disposition home or self-care (01) | DRG 291 ==
LOC: EC 14:38 → 6SEL 16:00
PROVIDERS: ADMIT Family Medicine; ATTEND Family Medicine
DX: I13.0 Hypertensive heart and chronic kidney disease with heart failure and stage 1 through stage 4 chronic kidney disease, or unspecified chronic kidney disease (principal); I50.33 Acute on chronic diastolic (congestive) heart failure; G93.41 Metabolic encephalopathy; I27.2 Other secondary pulmonary hypertension; L03.115 Cellulitis of right lower limb; F03.90 Unspecified dementia, unspecified severity, without behavioral disturbance, psychotic disturbance, mood disturbance, and anxiety; J44.9 Chronic obstructive pulmonary disease, unspecified; L03.116 Cellulitis of left lower limb; N18.3 Chronic kidney disease, stage 3 (moderate); E03.9 Hypothyroidism, unspecified; E78.5 Hyperlipidemia, unspecified; I25.10 Atherosclerotic heart disease of native coronary artery without angina pectoris; I25.2 Old myocardial infarction; I49.3 Ventricular premature depolarization; J45.909 Unspecified asthma, uncomplicated; Z85.118 Personal history of other malignant neoplasm of bronchus and lung; Z87.891 Personal history of nicotine dependence; Z95.1 Presence of aortocoronary bypass graft; Z79.899 Other long term (current) drug therapy; Z79.82 Long term (current) use of aspirin
CPT/HCPCS: 36415; 71020; 80048; 80053; 82550; 82553; 83735; 83880; 84439; 84443; 84484; 85025; 85610; 85730; 93005; 93306; 94640; 94760; 96374; 99285

== ENCOUNTER 2016-12-23 09:20 | Inpatient (IN) | payer MEDICARE ==
[2016-12-23] MEDS ORDERED: SODIUM CHLORIDE 0.9% 1,000 ML IV ONE (09:42)
--- NOTE | 2016-12-23 10:01 | ED ---
General Adult HPI - General Chief complaint: Weakness Stated complaint: weakness, nausea Time Seen by Provider: 12/23/16 09:32 Source: patient, family Mode of arrival: wheelchair Limitations: no limitations - History of Present Illness Initial comments: This is an 81-year-old male with a history of COPD, CHF, recent hospitalizations for the same who presents here department for generalized fatigue, nausea, and diarrhea. The patient states the diarrhea started yesterday and has gradually worsened. He states that he had 10 episodes overnight. He is also been feeling very fatigued and nauseated. Denies any fevers or chills or lightheadedness. No chest pain. He is chronically on 2-3 L of O2 at home she's been using. He denies any shortness of breath. He does state that he's been on antibiotics recently and was thought to have C. diff in the past however 2 weeks ago he had a stool study performed that did not show any C. diff. He currently denies any other complaints. Initial blood pressure while in the room was 80/64. Patient was satting 88-90% on 4 L nasal cannula. - Related Data Home Medications Medication Instructions Recorded Confirmed Donepezil HCl [Aricept] 10 mg PO BID 05/22/14 12/23/16 Escitalopram [Lexapro] 10 mg PO DAILY 05/22/14 12/23/16 Isosorbide Mononitrate [Imdur] 60 mg PO DAILY 05/22/14 12/23/16 Albuterol Sulfate [Proair Hfa] 1 - 2 puff INHALATION RT-Q6H PRN 04/22/16 Atorvastatin [Lipitor] 10 mg PO DAILY 04/22/16 12/23/16 Aspirin EC [Ecotrin Low Dose] 81 mg PO DAILY 09/17/16 12/23/16 Pramipexole Di-HCl [Mirapex] 0.5 - 1 mg PO HS 09/17/16 12/23/16 Budesonide/Formoterol Fumarate 2 puff INHALATION RT-BID 12/23/16 12/23/16 [Symbicort 160-4.5 Mcg Inhaler] Ipratropium-Albuterol Nebulize 3 ml INHALATION RT-QID PRN 12/23/16 12/23/16 [Duoneb 0.5 mg-3 mg/3 ml Soln] Metolazone [Zaroxolyn] 2.5 mg PO DAILY 12/23/16 12/23/16 rOPINIRole HCL [Requip] 0.25 - 0.5 mg PO HS 12/23/16 12/23/16 Previous Rx's Medication Instructions Recorded Atenolol [Tenormin] 25 mg PO DAILY #0 09/20/16 Furosemide [Lasix] 40 mg PO BID@0900,1600 #60 tab 09/20/16 Allergies Allergy/AdvReac Type Severity Reaction Status Date / Time No Known Allergies Allergy Verified 12/23/16 12:53 Review of Systems ROS Statement: Those systems with pertinent positive or pertinent negative responses have been documented in the HPI. ROS Other: All systems not noted in ROS Statement are negative. Past Medical History Past Medical History: Asthma, Coronary Artery Disease (CAD), Cancer, Heart Failure, COPD, Dementia, Hyperlipidemia, Hypertension, Myocardial Infarction ([place] ) Additional Past Medical History / Comment(s): 1999 R lung cancer with surgery,04/22/16 admitted with CHF- EF 50-55% with metabolic encephalopathy, diverticular dx , bilateral tinnitis on occasion, sinus problems, pt denies any pancreatic problems (was documented in old medical record). Last Myocardial Infarction Date:: Unknown History of Any Multi-Drug Resistant Organisms: None Reported Past Surgical History: Adenoidectomy, Coronary Bypass/CABG, Heart Catheterization, Hernia Repair, Tonsillectomy Additional Past Surgical History / Comment(s): 1999 R lung resection, 2007 AAA repair, L caratid endartectomy, bilateral cataract surgery, inguinal hernia surgery and anothe large abdominal hernia surgery per pt, colonoscopy. Past Anesthesia/Blood Transfusion Reactions: No Reported Reaction Past Psychological History: No Psychological Hx Reported Additional Psychological History / Comment(s): Pt resides with his spouse. He uses no assistive device. He drives. Smoking Status: Former smoker Past Alcohol Use History: None Reported, Rare Additional Past Alcohol Use History / Comment(s): Pt smoked from [id number]. He has a rare glass of wine. Past Drug Use History: None Reported - Past Family History Mother Family Medical History: Rheumatoid Arthritis (RA) Father History Unknown: Yes General Exam - General Exam Comments Initial Comments: Constitutional: Awake alert Appears comfortable Head: Normocephalic atraumatic Eyes: no conjunctival injection No scleral icterus EOMI Neck: No JVD Supple Heart: Regular rate rhythm normal S1-S2 no murmurs Lungs: There are mild rhonchi and rales however no wheezing Abdomen: Soft nondistended nontender Extremities: Non edematous DP pulses intact Radial pulses intact Neuro: A&Ox3 No focal neurologic deficits Psych: Appropriate mood and affect Limitations: no limitations Course Vital Signs 12/23/16 12/23/16 12/23/16 09:28 10:00 10:33 Temperature 97.0 F L Pulse Rate 70 72 69 Respiratory 18 24 24 Rate Blood Pressure 88/46 112/56 O2 Sat by Pulse 83 L 92 L 94 L Oximetry 12/23/16 12/23/16 11:00 12:59 Temperature Pulse Rate 68 67 Respiratory 22 24 Rate Blood Pressure 103/52 105/52 O2 Sat by Pulse 94 L 95 Oximetry - Reevaluation(s) Reevaluation #1: 12/23/16 11:00 Blood pressure seems to have normalized without any fluid intervention. He's got about 200 mL. A told the nurse only bolus 500 on hold because the chest x- ray appears fluid overloaded. Reevaluation #2: 12/23/16 13:[address] Wild about the case and he recommended calling IR for a cholecystostomy tube. Spoke with Dr. Vega who stated that he was aware of the patient and will evaluate him for possible cholecystostomy tube. EKG Findings - EKG Comments: EKG Findings:: EKG is showing sinus rhythm with a rate of 70. No abnormal ST segment changes. There is T-wave inversion in V4 and lead 3. QTC is 522. Other intervals are normal. There is occasional PVC. Procedures - Sepsis Sepsis Focused Exam #1 Time Sepsis Criteria Met: 11:46 Sepsis Focused Exam Date: 12/23/16 Sepsis Focused Exam Time: 12:45 Sepsis Focused Exam Complete: Yes Vital Signs & RN Notes Reviewed: Yes Capillary Refill: < 2 Seconds: Fingers Peripheral Pulses: Normal: Radial (R), Radial (L), Dorsalis Pedis (R), Dorsalis Pedis (L) Skin Color: Normal for Patient Respiratory Exam: rales Cardiovascular Exam: regular rate Medical Decision Making - Medical Decision Making This is an 81-year-old male came to the emergency department for diarrhea. He was found to have acute cholecystitis with a lactic acid of 5. He also appear to be in CHF exacerbation. The patient was gently fluid hydrating given antibiotics. I spoke with Dr. Chang with surgery who stated the patient was not stable from a cardiac standpoint for surgery. I spoke with Dr. Machuca about the case recommended calling IR. IR is going to review the case and speak with Dr. Machuca about the case. Heparin will be placed on hold until it is decided that the patient will get a cholecystostomy tube or not today. Patient will be going to ICU. Dr. Ellsworth accepted the admission. - Lab Data Result diagrams: 12/23/16 10:26 12/23/16 10:26 Lab Results 12/23/16 12/23/16 12/23/16 Range/Units 10:26 10:26 10:26 WBC 15.6 H (3.8-10.6) k/uL RBC 4.69 (4.30-5.90) m/uL Hgb 14.0 (13.0-17.5) gm/dL Hct 44.2 (39.0-53.0) % MCV 94.2 (80.0-100.0) fL MCH 29.9 (25.0-35.0) pg MCHC 31.7 (31.0-37.0) g/dL RDW 15.4 (11.5-15.5) % Plt Count 117 L (150-450) k/uL Neutrophils % 87 % Lymphocytes % 6 % Monocytes % 6 % Eosinophils % 0 % Basophils % 0 % Neutrophils # 13.6 H (1.3-7.7) k/uL Lymphocytes # 0.9 L (1.0-4.8) k/uL Monocytes # 0.9 (0-1.0) k/uL Eosinophils # 0.0 (0-0.7) k/uL Basophils # 0.0 (0-0.2) k/uL Hypochromasia Slight PT (9.0-12.0) sec INR (<1.1) APTT (22.0-30.0) sec VBG pH (7.31-7.41) VBG pCO2 (37-51) mmHg VBG HCO3 (24-28) mmol/L Sodium 139 (137-145) mmol/L Potassium 5.2 H (3.5-5.1) mmol/L Chloride 98 (98-107) mmol/L Carbon Dioxide 19 L (22-30) mmol/L Anion Gap 22 mmol/L BUN 47 H (9-20) mg/dL Creatinine 2.15 H (0.66-1.25) mg/dL Est GFR (MDRD) Af Amer 36 (>60 ml/min/1.73 sqM) Est GFR (MDRD) Non-Af 30 (>60 ml/min/1.73 sqM) Glucose 59 L (74-99) mg/dL Plasma Lactic Acid José Antonio 5.3 H* (0.7-2.0) mmol/L Calcium 9.0 (8.4-10.2) mg/dL Total Bilirubin 2.3 H (0.2-1.3) mg/dL AST 961 H (17-59) U/L ALT 791 H (21-72) U/L Alkaline Phosphatase 102 (38-126) U/L CK-MB (CK-2) (0.0-2.4) ng/mL Troponin I (0.000-0.034) ng/mL NT-Pro-B Natriuret Pep pg/mL Total Protein 7.1 (6.3-8.2) g/dL Albumin 3.7 (3.5-5.0) g/dL Amylase 121 H (30-110) U/L Lipase 184 (23-300) U/L 12/23/16 12/23/16 12/23/16 Range/Units 10:26 10:26 10:26 WBC (3.8-10.6) k/uL RBC (4.30-5.90) m/uL Hgb (13.0-17.5) gm/dL Hct (39.0-53.0) % MCV (80.0-100.0) fL MCH (25.0-35.0) pg MCHC (31.0-37.0) g/dL RDW (11.5-15.5) % Plt Count (150-450) k/uL Neutrophils % % Lymphocytes % % Monocytes % % Eosinophils % % Basophils % % Neutrophils # (1.3-7.7) k/uL Lymphocytes # (1.0-4.8) k/uL Monocytes # (0-1.0) k/uL Eosinophils # (0-0.7) k/uL Basophils # (0-0.2) k/uL Hypochromasia PT 16.9 H (9.0-12.0) sec INR 1.7 (<1.1) APTT 26.6 (22.0-30.0) sec VBG pH (7.31-7.41) VBG pCO2 (37-51) mmHg VBG HCO3 (24-28) mmol/L Sodium (137-145) mmol/L Potassium (3.5-5.1) mmol/L Chloride (98-107) mmol/L Carbon Dioxide (22-30) mmol/L Anion Gap mmol/L BUN (9-20) mg/dL Creatinine (0.66-1.25) mg/dL Est GFR (MDRD) Af Amer (>60 ml/min/1.73 sqM) Est GFR (MDRD) Non-Af (>60 ml/min/1.73 sqM) Glucose (74-99) mg/dL Plasma Lactic Acid José Antonio (0.7-2.0) mmol/L Calcium (8.4-10.2) mg/dL Total Bilirubin (0.2-1.3) mg/dL AST (17-59) U/L ALT (21-72) U/L Alkaline Phosphatase (38-126) U/L CK-MB (CK-2) 15.6 H* (0.0-2.4) ng/mL Troponin I 5.350 H* (0.000-0.034) ng/mL NT-Pro-B Natriuret Pep 56510 pg/mL Total Protein (6.3-8.2) g/dL Albumin (3.5-5.0) g/dL Amylase (30-110) U/L Lipase (23-300) U/L 12/23/16 Range/Units 12:25 WBC (3.8-10.6) k/uL RBC (4.30-5.90) m/uL Hgb (13.0-17.5) gm/dL Hct (39.0-53.0) % MCV (80.0-100.0) fL MCH (25.0-35.0) pg MCHC (31.0-37.0) g/dL RDW (11.5-15.5) % Plt Count (150-450) k/uL Neutrophils % % Lymphocytes % % Monocytes % % Eosinophils % % Basophils % % Neutrophils # (1.3-7.7) k/uL Lymphocytes # (1.0-4.8) k/uL Monocytes # (0-1.0) k/uL Eosinophils # (0-0.7) k/uL Basophils # (0-0.2) k/uL Hypochromasia PT (9.0-12.0) sec INR (<1.1) APTT (22.0-30.0) sec VBG pH 7.28 L (7.31-7.41) VBG pCO2 53 H (37-51) mmHg VBG HCO3 24 (24-28) mmol/L Sodium (137-145) mmol/L Potassium (3.5-5.1) mmol/L Chloride (98-107) mmol/L Carbon Dioxide (22-30) mmol/L Anion Gap mmol/L BUN (9-20) mg/dL Creatinine (0.66-1.25) mg/dL Est GFR (MDRD) Af Amer (>60 ml/min/1.73 sqM) Est GFR (MDRD) Non-Af (>60 ml/min/1.73 sqM) Glucose (74-99) mg/dL Plasma Lactic Acid José Antonio (0.7-2.0) mmol/L Calcium (8.4-10.2) mg/dL Total Bilirubin (0.2-1.3) mg/dL AST (17-59) U/L ALT (21-72) U/L Alkaline Phosphatase (38-126) U/L CK-MB (CK-2) (0.0-2.4) ng/mL Troponin I (0.000-0.034) ng/mL NT-Pro-B Natriuret Pep pg/mL Total Protein (6.3-8.2) g/dL Albumin (3.5-5.0) g/dL Amylase (30-110) U/L Lipase (23-300) U/L Disposition Clinical Impression: Acute cholecystitis, Lactic acidosis, Sepsis, CHF exacerbation Disposition: ADMITTED IP TO THIS [facility] Condition: Critical
[2016-12-23 10:54] LABS: Basophils % (A) 0 %; CH 28.9; CHCM 30.8; Eosinophils % (A) 0 %; HCT 44.2 % (39.0-53.0); HDW 2.39; Hypochromasia Slight; Luc # (Auto) 0.23; Luc % (Auto) 2; Lymphocytes # (A) 0.9 k/uL (1.0-4.8); Lymphocytes % (A) 6 %; MCH 29.9 pg (25.0-35.0); MCHC 31.7 g/dL (31.0-37.0); MCV 94.2 fL (80.0-100.0); Mean Platelet Volume 9.4; Monocytes # (A) 0.9 k/uL (0-1.0); Monocytes % (A) 6 %; Neutrophils # (A) 13.6 k/uL (1.3-7.7); Neutrophils % (A) 87 %; RBC 4.69 m/uL (4.30-5.90); RDW 15.4 % (11.5-15.5); WBC 15.6 k/uL (3.8-10.6); WBC (Perox) 15.25
[2016-12-23 11:03] LABS: Potassium 5.2 mmol/L (3.5-5.1); Total Bilirubin 2.3 mg/dL (0.2-1.3); Total Protein 7.1 g/dL (6.3-8.2)
[2016-12-23 11:21] LABS: INR 1.7 (<1.1); Prothrombin Time 16.9 sec (9.0-12.0)
[2016-12-23 11:36] LABS: Partial Thromboplastin Time 26.6 sec (22.0-30.0)
--- NOTE | 2016-12-23 11:50 | XR ---
EXAMINATION TYPE: XR chest 2V DATE OF EXAM: 12/23/2016 10:53 AM COMPARISON: 09/17/2016 11/16/2014. HISTORY: 81-year-old male with shortness of breath and history of lung cancer TECHNIQUE: AP and lateral views FINDINGS: Median sternotomy wires are present. Heart remains mildly enlarged. Diffuse interstitial prominence. There is a small left pleural effusion with adjacent opacity. Patchy opacity at the right base is not ed. Diffuse interstitial prominence. Additional right hilar rounded opacity could represent the site of patient's lung cancer. IMPRESSION: 1. Extensive chronic parenchymal changes with COPD. There is rounded right hilar prominence which cou ld present the patient's site of lung cancer. Clinically correlate. 2. Continued blunting of the left costophrenic angle could represent a small left pleural effusion wi th adjacent atelectasis and/or consolidation. This is stable from 09/17/2016 but new from 11/16/2014. 3. Correlate for infiltrate at the right base and to exclude mild CHF.
[2016-12-23 11:52] LABS: Creatine Kinase MB 15.6 ng/mL (0.0-2.4); Troponin I 5.35 ng/mL (0.000-0.034)
[2016-12-23] MEDS: SODIUM CHLORIDE 0.9% 1,000 ML IV SCH ×2 (11:58→21:42)
--- NOTE | 2016-12-23 12:04 | US ---
EXAMINATION TYPE: US abdomen limited DATE OF EXAM: 12/23/2016 11:37 AM COMPARISON: 06/20/2016 CLINICAL HISTORY: 81-year-old female with diarrhea, elevated LFTs, evaluate bile duct. Elevated LFT's TECHNIQUE: Multiple sonographic images of the right upper quadrant are obtained. FINDINGS: House Nurse notes: Difficult exam, elderly pt unable to move with heavy breathing Liver Length: 15.1 cm Gallbladder Wall: 0.5 cm CBD: 0.5 cm Right Kidney: 10.3x 4.8 x 4.7 cm Pancreas: Obscured by bowel gas and not assessed. Liver: No focal lesion. Gallbladder: Thickened wall with probable stones at neck. The patient is unable to roll to LLD posit ion Evidence for sonographic Navas's sign: Yes CBD: Normal caliber. Right Kidney: Markedly atrophic, difficult to visualize and with multiple cysts scattered throughout , no clear hydronephrosis. Small amount of ascites seen rt flank IMPRESSION: 1. Correlate for possible acute cholecystitis. There is gallbladder wall thickening with positive son ographic Navas sign and suggestion of a calculus at the gallbladder neck. Limited evaluation due to patient's breathing and ability to appropriately position. Consider HIDA scan to further evaluate. 2. Bile duct is 5 mm, normal caliber and unchanged from 06/20/2016. 3. Atrophic right kidney with a multiple cysts. 4. Small amount of right flank ascites fluid.
[2016-12-23] MEDS ORDERED: metroNIDAZOLE-NS PMX 500 MG in SALINE 1 100ML.BAG IVPB STA (12:09)
[2016-12-23] MEDS ORDERED: LEVOFLOXACIN 500MG-D5W PMX 500 MG in DEXTROSE/WATER 1 100ML.BAG IVPB STA (12:09)
[2016-12-23] MEDS ORDERED: HEPARIN SODIUM,PORCINE 5,000 UNIT/ML 1 ML VIAL IV ONE (12:21)
[2016-12-23 12:42] LABS: VBG PH 7.28 (7.31-7.41)
[2016-12-23] MEDS: HEPARIN SODIUM,PORCINE/D5W PMX 25,000 UNIT in DEXTROSE/WATER 1 500ML.BAG IV SCH ×2 (12:56→16:07)
[2016-12-23] MEDS ORDERED: NALOXONE 0.4 MG/ML 1 ML VIAL IV PRN (13:11)
[2016-12-23] MEDS ORDERED: PHYTONADIONE 5 MG in SODIUM CHLORIDE 0.9% 50 ML IVPB STA (14:19)
[2016-12-23] MEDS ORDERED: HYDROmorphone 1 MG/ML 1 ML SYRINGE IVP PRN (14:19)
--- NOTE | 2016-12-23 14:23 | P.GSCN ---
History of Present Illness Consult date: 12/23/16 Reason for Consult: Sepsis, possible cholecystitis History of present illness: The patient's a 81-year-old man who presented to the emergency department due to weakness and diarrhea. As part of his workup lab was drawn showing elevated liver function tests. Ultrasound was performed showing probable cholecystitis. He had been denying any abdominal pain nausea or vomiting. No previous episodes of any "gallbladder problems". He's not been on antibiotics for anything this year. Possibly some blood in his stool this morning. Review of Systems All systems: negative Past Medical History Past Medical History: Asthma, Coronary Artery Disease (CAD), Cancer, Heart Failure, COPD, Dementia, Hyperlipidemia, Hypertension, Myocardial Infarction ([place] ) Additional Past Medical History / Comment(s): 1999 R lung cancer with surgery,04/22/16 admitted with CHF- EF 50-55% with metabolic encephalopathy, diverticular dx , bilateral tinnitis on occasion, sinus problems, pt denies any pancreatic problems (was documented in old medical record). Last Myocardial Infarction Date:: Unknown History of Any Multi-Drug Resistant Organisms: None Reported Past Surgical History: Adenoidectomy, Coronary Bypass/CABG, Heart Catheterization, Hernia Repair, Tonsillectomy Additional Past Surgical History / Comment(s): 1999 R lung resection, 2007 AAA repair, L caratid endartectomy, bilateral cataract surgery, inguinal hernia surgery and anothe large abdominal hernia surgery per pt, colonoscopy. Past Anesthesia/Blood Transfusion Reactions: No Reported Reaction Past Psychological History: No Psychological Hx Reported Additional Psychological History / Comment(s): Pt resides with his spouse. He uses no assistive device. He drives. Smoking Status: Former smoker Past Alcohol Use History: None Reported, Rare Additional Past Alcohol Use History / Comment(s): Pt smoked from [id number]. He has a rare glass of wine. Past Drug Use History: None Reported - Past Family History Mother Family Medical History: Rheumatoid Arthritis (RA) Father History Unknown: Yes Medications and Allergies Home Medications Medication Instructions Recorded Confirmed Type Donepezil HCl [Aricept] 10 mg PO BID 05/22/14 12/23/16 History Escitalopram [Lexapro] 10 mg PO DAILY 05/22/14 12/23/16 History Isosorbide Mononitrate [Imdur] 60 mg PO DAILY 05/22/14 12/23/16 History Albuterol Sulfate [Proair Hfa] 1 - 2 puff INHALATION RT-Q6H PRN 04/22/16 History Atorvastatin [Lipitor] 10 mg PO DAILY 04/22/16 12/23/16 History Aspirin EC [Ecotrin Low Dose] 81 mg PO DAILY 09/17/16 12/23/16 History Pramipexole Di-HCl [Mirapex] 0.5 - 1 mg PO HS 09/17/16 12/23/16 History Budesonide/Formoterol Fumarate 2 puff INHALATION RT-BID 12/23/16 12/23/16 History [Symbicort 160-4.5 Mcg Inhaler] Ipratropium-Albuterol Nebulize 3 ml INHALATION RT-QID PRN 12/23/16 12/23/16 History [Duoneb 0.5 mg-3 mg/3 ml Soln] Metolazone [Zaroxolyn] 2.5 mg PO DAILY 12/23/16 12/23/16 History rOPINIRole HCL [Requip] 0.25 - 0.5 mg PO HS 12/23/16 12/23/16 History Allergies Allergy/AdvReac Type Severity Reaction Status Date / Time No Known Allergies Allergy Verified 12/23/16 12:53 Surgical - Exam Osteopathic Statement: *. No significant issues noted on an osteopathic structural exam other than those noted in the History and Physical/Consult. Vital Signs Temp Pulse Resp Pulse Ox 97.0 F L 70 18 83 L 12/23/16 09:28 12/23/16 09:28 12/23/16 09:28 12/23/16 09:28 - General He is alert, in no acute distress chronically ill (Then) - Eyes normal ocular movement - ENT no congestion - Neck trachea midline, no lymphadectomy - Respiratory normal expansion absent: wheezing, rales - Cardiovascular Rhythm: regular - Abdomen Abdomen: soft, tender (Right upper quadrant), masses (Fullness in the region of the gallbladder) - Neurologic no combative Results - Labs 12/23/16 10:26 12/23/16 10:26 - Imaging US - abdomen: report reviewed Assessment and Plan (1) Acute cholecystitis Status: Acute (2) Lactic acidosis Status: Acute (3) Sepsis Status: Acute Plan: The patient does not have evidence of cholelithiasis however he does have gallbladder wall thickening and tenderness. Given his multiple medical comorbidities I think a cholecystostomy tube is reasonable. This was discussed with the patient and Dr. Machuca. We'll give the patient some vitamin K due to his modestly elevated INR. IV antibiotics and supportive care. DVT and ulcer prophylaxis. I'll follow with you. Further recommendations to follow.
[2016-12-23 16:03] LABS: Amorphous Sediment,Urine Few /hpf; Appearance,Urine Cloudy (Clear); Bacteria,Urine Occasional /hpf; Bilirubin,Urine Negative (Negative); Glucose,Urine (UA) Negative (Negative); Ketones,Urine Negative (Negative); Leukocyte Esterase,Urine Negative (Negative); Mucus,Urine Rare /hpf; Nitrite,Urine Negative (Negative); Particle Count 15324; Protein,Urine 1+ (Negative); RBC,Urine 98 /hpf (0-5); Specific Gravity,Urine 1.015 (1.001-1.035); Squamous Epithelial Cell,Urine <1 /hpf (0-4); UA Billing (MACRO vs. MICRO) MICRO; Urobilinogen,Urine <2.0 mg/dL (<2.0); WBC,Urine 2 /hpf (0-5)
[2016-12-23 16:14] LABS: Glucose,Whole Blood 84 mg/dL (75-99)
[2016-12-23 16:35] LABS: Glucose,Whole Blood 84 mg/dL (75-99)
--- NOTE | 2016-12-23 17:01 | P.CNPUL ---
History of Present Illness Consult date: 12/23/16 Chief complaint: sepsis History of present illness: This is an 81-year-old male patient with advanced COPD, coronary artery disease , chronic hypoxic hypercapnic respiratory failure in addition to multiple other medical positive comorbidities with a baseline chronic renal failure, came into the emergency department with generalized weakness fatigue, nausea, and frequent bouts of diarrhea that was going on over the past 2-3 days. Yesterday for example the patient had at least 7-10 bouts of liquidy bowel movements. The patient came into the emergency department and he was tachycardic and hypotensive and his initial blood pressure was 80/64. He was given 500 mL of IV fluids to stabilize his blood pressure. He was having some vague diffuse abdominal pain more so on the right upper quadrant area. He had no chest pain. He was a mild degree of respiratory distress note that he has been chronically dyspneic related to his COPD. The patient was found to have significant abnormalities in his blood work. Specifically, he was found to have leukocytosis with a WBC count of 15.6, he was acidotic with a pH of 7.28, he was in acute on top of chronic renal failure knowing that his baseline creatinine is around 1.5 and his current creatinine is up to 2.1 and he was oliguric and he had obvious signs of diminished urine output. His lactic acid level was at 5.3 and the patient's troponin peaked at 5.3. His proBNP was more than 90,000. His chest x-ray showed thyromegaly and pulmonary vascular congestion and small bilateral pleural effusions. I discussed the case with emergency department physician. I also noted that the patient's liver function tests were quite abnormal with an AST of 961 and ALP of 761 and normal alkaline phosphatase and bilirubin. Nevertheless the ultrasound of the abdomen that was done in the emergency department showed changes consistent with acute cholecystitis and gallbladder wall thickening and right kidney was atrophic with multi cysts and there was no evidence of hydronephrosis. The patient was started on examination of Levaquin and Flagyl. Surgical consultation was obtained. The patient obviously was not a good surgical candidate for any surgical intervention. At that point I contacted interventional radiology will proceed with a percutaneous drainage of the gallbladder. A total of 200 mL of fluid was aspirated and the fluid was sent for microbial cultures. At this point in time, patient is in the intensive care unit. His systolic blood pressures the mid 90s. No change in mental status. No chest pain. His chronic shortness of breath as mentioned. His urine output is diminished still. No chest pain. No significant abdominal pain. The cholecystostomy tube is in good location and is actively draining. Review of Systems Further review of system was done and the positive findings are almost above the history of present illness Past Medical History Past Medical History: Asthma, Coronary Artery Disease (CAD), Cancer, Heart Failure, COPD, Dementia, Hyperlipidemia, Hypertension, Myocardial Infarction (SD ) Additional Past Medical History / Comment(s): COPD, chronic hypoxic and hypercapnic respiratory failure, lung cancer of a non-small cell type and the patient has had bilobectomy in the year 1999, coronary artery disease with previous bypass surgery, dementia, hyperlipidemia, hypertension, previous myocardial infarction, diverticular disease, chronic renal failure with a baseline creatinine of 1.3-1.5, and now aortic aneurysm repaired, carotid artery disease that has been surgically repaired, hypertension, hyperlipidemia, Last Myocardial Infarction Date:: Unknown History of Any Multi-Drug Resistant Organisms: None Reported Past Surgical History: Adenoidectomy, Coronary Bypass/CABG, Heart Catheterization, Hernia Repair, Tonsillectomy Additional Past Surgical History / Comment(s): 1999 R lung resection, 2007 AAA repair, L caratid endartectomy, bilateral cataract surgery, inguinal hernia surgery and another large abdominal hernia surgery per pt, colonoscopy. Past Anesthesia/Blood Transfusion Reactions: No Reported Reaction Past Psychological History: No Psychological Hx Reported Additional Psychological History / Comment(s): Pt resides with his spouse. He uses no assistive device. He drives. Smoking Status: Former smoker Past Alcohol Use History: None Reported, Rare Additional Past Alcohol Use History / Comment(s): Pt smoked from [id number]. He has a rare glass of wine. Past Drug Use History: None Reported - Past Family History Mother Family Medical History: Rheumatoid Arthritis (RA) Father History Unknown: Yes Medications and Allergies Home Medications Medication Instructions Recorded Confirmed Type Donepezil HCl [Aricept] 10 mg PO BID 05/22/14 12/23/16 History Escitalopram [Lexapro] 10 mg PO DAILY 05/22/14 12/23/16 History Isosorbide Mononitrate [Imdur] 60 mg PO DAILY 05/22/14 12/23/16 History Albuterol Sulfate [Proair Hfa] 1 - 2 puff INHALATION RT-Q6H PRN 04/22/16 History Atorvastatin [Lipitor] 10 mg PO DAILY 04/22/16 12/23/16 History Aspirin EC [Ecotrin Low Dose] 81 mg PO DAILY 09/17/16 12/23/16 History Pramipexole Di-HCl [Mirapex] 0.5 - 1 mg PO HS 09/17/16 12/23/16 History Budesonide/Formoterol Fumarate 2 puff INHALATION RT-BID 12/23/16 12/23/16 History [Symbicort 160-4.5 Mcg Inhaler] Ipratropium-Albuterol Nebulize 3 ml INHALATION RT-QID PRN 12/23/16 12/23/16 History [Duoneb 0.5 mg-3 mg/3 ml Soln] Metolazone [Zaroxolyn] 2.5 mg PO DAILY 12/23/16 12/23/16 History rOPINIRole HCL [Requip] 0.25 - 0.5 mg PO HS 12/23/16 12/23/16 History Allergies Allergy/AdvReac Type Severity Reaction Status Date / Time No Known Allergies Allergy Verified 12/23/16 12:53 Physical Exam Vitals: Vital Signs Temp Pulse Resp BP Pulse Ox 12/23/16 15:40 97.5 F L 58 L 18 111/54 94 L 12/23/16 15:25 63 90/48 96 12/23/16 15:20 66 90/46 93 L 12/23/16 15:15 57 L 87/46 97 12/23/16 13:39 62 106/69 Intake and Output 12/23/16 12/23/16 12/23/16 06:59 14:59 22:59 Intake Total 54.403 Output Total 20 Balance 34.403 Intake: Intake, IV Titration 54.403 Amount Output: Urine 20 Straight 20 Head exam was generally normal. There was no scleral icterus or corneal arcus. Mucous membranes were moist.Neck was supple and without jugular venous distension, thyromegaly, or carotid bruits. Carotids were easily palpable bilaterally. There was no adenopathy. Lung sounds are diminished bilaterally and there is diffuse extremity wheezes throughout the lung mcclellan and there is prolongation of expiratory phase of breathing. Heart sounds are irregular and there is frequent premature atrial beats, positive S1-S2 and there is no significant murmurs appreciated. Abdomen is soft and there is a cholecystostomy tube in the right upper quadrant area. Minimal right upper quadrant direct tenderness. No rebound and some guarding. Bowel sounds are hypoactive. Extremities are showing diminished pulses and there is no cyanosis or clubbing. Neurologically the patient is awaiting alert and there is no focal neurological deficits. Results - Laboratory Findings CBC and BMP: 12/23/16 10:26 12/23/16 10:26 PT/INR, D-dimer PT 16.9 sec (9.0-12.0) H 12/23/16 10:26 INR 1.7 (<1.1) 12/23/16 10:26 Abnormal lab findings: Abnormal Labs 12/23/16 15:45 Urine Protein 1+ H Urine Blood Moderate H Urine RBC 98 H Amorphous Sediment Few H Urine Bacteria Occasional H Hyaline Casts 5 H Urine Mucus Rare H - Diagnostic Findings Chest x-ray: image reviewed Assessment and Plan Plan: Assessment 1 sepsis likely secondary to an acute cholecystitis, status post percutaneous cholecystostomy tube drainage. The patient is currently being resuscitated IV fluids and the patient is covered with a combination of Levaquin and Flagyl. The bili fluid will be sent for Gram stain and culture. 2 hypotension currently on no pressors and the patient is being gently hydrated with IV fluids. Urine output is diminished at this point 3 acute kidney injury on top of chronic renal failure with a creatinine of 2.1 and secondary oligoria, rule out secondary to hypotension/sepsis 4 acute non-STEMI in the setting of hypotension and sepsis and EKG showing normal sinus rhythm with frequent PVCs and there is no ST segment elevation or depressions. 5 coronary artery disease with previous carotid bypass surgery 6 advanced COPD with chronic hypoxic and hypercapnic respiratory failure. The patient is a CO2 retainer and has compensated 3 metabolic alkalosis at baseline with a bicarb level of around 33 to 37 7 lactic acidosis secondary to sepsis. The patient has an anion gap metabolic acidosis at this point 8 lung cancer status post right bilobar resection for non-small cell lung cancer in 1999 9 abdominal aortic aneurysm repaired surgically 10 carotid endarterectomy for carotid artery disease 11 dementia 12 hyperlipidemia 13 hypertension 14 diverticular disease 15 diarrhea with a negative C. diff evaluation Plan Give the patient another bolus of 500 mL of normal saline. Switch this patient to D5 with 3 A of bicarb and start IV fluids at the rate of 75 mL an hour. My goal is to bring his bicarb to above 30. Meanwhile, we will insert the Liriano catheter monitor the urine output. Stent biliary fluid for Gram stain and culture. Send blood cultures. Send urine cultures. Monitor the cardiac enzymes. Continued IV heparin for another 24 hours. A liver function tests. Monitor lactic acid levels. General surgeries on the case. Keep the patient nothing by mouth for now. We will continue to follow make further recommendations based on his overall progress. Condition is critical at this point.
[2016-12-23] MEDS ORDERED: SODIUM CHLORIDE 0.9% 500 ML IV ONE ×3 (17:02→21:41)
[2016-12-23] MEDS: DEXTROSE 5% IN WATER 1,000 ML with SODIUM BICARB (1 MEQ/ML) 150 ML IV SCH (17:15)
[2016-12-23 17:51] LABS: Basophils % (A) 0 %; CH 29.4; CHCM 30.4; Eosinophils % (A) 0 %; HCT 46.2 % (39.0-53.0); HDW 2.23; HGB 14.4 gm/dL (13.0-17.5); Hypochromasia Slight; Luc # (Auto) 0.23; Luc % (Auto) 2; Lymphocytes # (A) 1.8 k/uL (1.0-4.8); Lymphocytes % (A) 13 %; MCH 30.1 pg (25.0-35.0); MCHC 31.1 g/dL (31.0-37.0); Mean Platelet Volume 9.2; Monocytes # (A) 0.8 k/uL (0-1.0); Monocytes % (A) 6 %; Neutrophils # (A) 10.7 k/uL (1.3-7.7); Neutrophils % (A) 79 %; RBC 4.77 m/uL (4.30-5.90); RDW 15.7 % (11.5-15.5); WBC 13.5 k/uL (3.8-10.6); WBC (Perox) 13.86
[2016-12-23] MEDS ORDERED: NOREPINEPHRINE 4 MG in SODIUM CHLORIDE 0.9% 250 ML IV SCH (18:00)
[2016-12-23 18:26] LABS: Creatine Kinase MB 15.3 ng/mL (0.0-2.4)
[2016-12-23] MEDS ORDERED: MEROPENEM 2 GM in SODIUM CHLORIDE 0.9% 100 ML IVPB SCH (18:30)
[2016-12-23] MEDS: MEROPENEM 1 GM in SODIUM CHLORIDE 0.9% 100 ML IVPB SCH (18:52)
[2016-12-23] MEDS: PANTOPRAZOLE 40 MG/10 ML VIAL IVP SCH (19:29)
[2016-12-23] MEDS: BUDESONIDE 0.5 MG/2 ML NEBU INHALATION SCH (20:33)
[2016-12-23] MEDS: LEVALBUTEROL NEB (CONC) 1.25 MG/0.5 ML AMP INHALATION SCH (20:33)
[2016-12-23] MEDS: FORMOTEROL FUMARATE 20 MCG/2 ML NEBU INHALATION SCH (20:33)
[2016-12-23] MEDS: IPRATROPIUM 0.5 MG/2.5 ML NEBU INHALATION SCH (20:33)
[2016-12-23] MEDS: DONEPEZIL 10 MG TAB PO SCH (21:41)
[2016-12-23 22:02] LABS: Calcium 7.8 mg/dL (8.4-10.2); Potassium 5.6 mmol/L (3.5-5.1)
[2016-12-23 22:39] LABS: ABG Base Excess -6.8 mmol/L; ABG HCO3 20 mmol/L (21-25); ABG PCO2 54 mmHg (35-45); ABG PO2 90 mmHg (83-108); ABG TCO2 22 mmol/L (19-24)
[2016-12-23] MEDS ORDERED: SODIUM BICARB 8.4% 50 ML SYR (1 MEQ/ML) IV STA (22:43)
[2016-12-24 04:35] LABS: Basophils # (A) 0.1 k/uL (0-0.2); Basophils % (A) 0 %; CHCM 30.4; Eosinophils % (A) 0 %; HCT 48.1 % (39.0-53.0); HGB 14.8 gm/dL (13.0-17.5); Hypochromasia Slight; Luc # (Auto) 0.24; Luc % (Auto) 2; Lymphocytes # (A) 1.6 k/uL (1.0-4.8); Lymphocytes % (A) 12 %; MCH 29.6 pg (25.0-35.0); MCHC 30.8 g/dL (31.0-37.0); MCV 96.1 fL (80.0-100.0); Mean Platelet Volume 8.9; Monocytes % (A) 7 %; Neutrophils # (A) 11.1 k/uL (1.3-7.7); Neutrophils % (A) 79 %; RDW 15.8 % (11.5-15.5); WBC (Perox) 13.69
[2016-12-24 04:53] LABS: Calcium 7.4 mg/dL (8.4-10.2); Potassium 4.7 mmol/L (3.5-5.1); Total Bilirubin 1.9 mg/dL (0.2-1.3); Total Protein 6.3 g/dL (6.3-8.2)
[2016-12-24] MEDS ORDERED: HEPARIN SODIUM,PORCINE 5,000 UNIT/ML 1 ML VIAL IV PRN (05:46)
--- NOTE | 2016-12-24 07:15 | XR ---
EXAMINATION TYPE: XR chest 1V DATE OF EXAM: 12/24/2016 6:45 AM COMPARISON: 12/23/2016 HISTORY: Shortness of breath FINDINGS: There are bilateral pleural effusions with cardiomegaly and bibasilar infiltrate. There is a diffuse interstitial pattern. Hyperinflation suggests COPD there is postoperative change. IMPRESSION: 1. Bilateral infiltrate and small effusion. Pneumonia and CHF differential diagnosis
--- NOTE | 2016-12-24 07:22 | CT ---
EXAMINATION TYPE: CT guided percutaneous cholecystostomy tube insertion DATE OF EXAM: 12/23/2016 3:39 PM COMPARISON: Ultrasound 12/23/2016 HISTORY: Abnormal ultrasound with findings suspicious for cholecystitis. Referring physician does not feel patient is surgical candidate. Concern the patient is septic and request for percutaneous merritt cystostomy tube The procedure is discussed with the patient, the risks, complications, benefits and alternatives, wer e discussed and any questions were answered. Informed consent was obtained. The patient is placed p lesley on the CT table, prepped and draped in the usual sterile fashion. Utilizing a 22-gauge Chiba needle access into the gallbladder was achieved. Free spillage of bile. Pl acement of a 0.035 guidewire. Serial dilation to 8 Filipino and placement of an 8 Filipino drainage tube within the gallbladder. All elements of maximal barrier and sterile technique were utilized. The pat ient remained stable throughout the procedure with no immediate postprocedural complication. Preproc edural antibiotics treatment. IMPRESSION: 1. Successful CT guided percutaneous cholecystostomy tube insertion.
[2016-12-24] MEDS: FORMOTEROL FUMARATE 20 MCG/2 ML NEBU INHALATION SCH ×2 (07:29→20:10)
[2016-12-24] MEDS: BUDESONIDE 0.5 MG/2 ML NEBU INHALATION SCH ×2 (07:29→20:10)
[2016-12-24] MEDS: IPRATROPIUM 0.5 MG/2.5 ML NEBU INHALATION SCH ×4 (07:29→20:10)
[2016-12-24] MEDS: LEVALBUTEROL NEB (CONC) 1.25 MG/0.5 ML AMP INHALATION SCH ×4 (07:29→20:10)
[2016-12-24] MEDS: DONEPEZIL 10 MG TAB PO SCH ×2 (08:10→20:00)
[2016-12-24] MEDS: ESCITALOPRAM 10 MG TAB PO SCH (08:10)
[2016-12-24] MEDS: PANTOPRAZOLE 40 MG/10 ML VIAL IVP SCH (08:10)
[2016-12-24] MEDS: MEROPENEM 1 GM in SODIUM CHLORIDE 0.9% 100 ML IVPB SCH ×2 (08:10→20:00)
[2016-12-24] MEDS: SODIUM CHLORIDE 0.9% 1,000 ML IV SCH ×2 (08:11→20:00)
[2016-12-24] MEDS ORDERED: PANTOPRAZOLE 40 MG/10 ML VIAL IVP SCH (09:00)
--- NOTE | 2016-12-24 09:40 | P.CONS ---
History of Present Illness - Reason for Consult Consult date: 12/24/16 Elevated liver enzymes Requesting physician: Tobias Polanco - History of Present Illness 81-year-old gentleman patient Dr. Trevor Chen [facility] lung carcinoma, dementia, advanced COPD, CAD CABG, MS, aortic aneurysm repair, hypertension, hyperlipidemia, chronic hypoxic hypercapnic restaurant failure, chronic renal failure. Admitted with sepsis secondary to acute cholecystitis, non-ST elevated MS; troponin 5.3., weakness fatigue nausea and nonbloody diarrhea. Clostridium difficile negative. Diarrhea mucus like small amounts per nursing. Afebrile. Presents to the ER tachycardic and hypotensive stabilize with IV fluids. Vague right upper quadrant abdominal pain with elevated transaminases, normal alkaline phosphatase mild hyperbilirubinemia 2 range. Ultrasound abdomen reported changes consistent with acute cholecystitis he underwent percutaneous cholecystotomy tube yesterday with 200 mL fluid removal; fluid cultures obtained and pending. Presently denies abdominal pain. Consultation requested for elevated transaminases. Admission total bilirubin 2.3 currently 1.9. AST 961 currently 2310. ALT 791 currently 2171. Alkaline phosphatase 79-102. Review of Systems Constitutional: Denies fever, chills, sweats, weight gain, or loss. HEENT: Negative for migraines, blurred vision or loss, earaches, drainage, tinnitus, oral mucosal lesions, dysphagia, or odynophagia. Cardiac: CAD. MS. Hypertension. Hyperlipidemia. Aortic aneurysm repair. Negative for chest pain, arrhythmias, or palpitation. Respiratory: Lung carcinoma. COPD chronic hypoxic hypercapnic respiratory failure Negative for shortness of breath, hemoptysis, cough, or sputum production. Gastrointestinal: See HPI for pertinent findings. Genitourinary: Negative for hematuria, urgency, frequency, polyuria, dysuria, or penile discharge. Musculoskeletal: Negative for muscle aches, swelling, arthritis, and arthralgias. Neurologic: Negative for stroke or TIA. Endocrine: Negative for thyroid problems. Nephrology: Chronic renal failure. Skin: Negative for rash or itching. Psychiatric: Dementia. All systems: negative (See HPI) Past Medical History Past Medical History: Asthma, Coronary Artery Disease (CAD), Cancer, Heart Failure, COPD, Dementia, Hyperlipidemia, Hypertension, Myocardial Infarction (MS ) Additional Past Medical History / Comment(s): COPD, chronic hypoxic and hypercapnic respiratory failure, lung cancer of a non-small cell type and the patient has had bilobectomy in the year 1999, coronary artery disease with previous bypass surgery, dementia, hyperlipidemia, hypertension, previous myocardial infarction, diverticular disease, chronic renal failure with a baseline creatinine of 1.3-1.5, and now aortic aneurysm repaired, carotid artery disease that has been surgically repaired, hypertension, hyperlipidemia, Last Myocardial Infarction Date:: Unknown History of Any Multi-Drug Resistant Organisms: None Reported Past Surgical History: Adenoidectomy, Coronary Bypass/CABG, Heart Catheterization, Hernia Repair, Tonsillectomy Additional Past Surgical History / Comment(s): 1999 R lung resection, 2007 AAA repair, L caratid endartectomy, bilateral cataract surgery, inguinal hernia surgery and another large abdominal hernia surgery per pt, colonoscopy. Past Anesthesia/Blood Transfusion Reactions: No Reported Reaction Past Psychological History: No Psychological Hx Reported Additional Psychological History / Comment(s): Pt resides with his spouse. He uses no assistive device. He drives. Smoking Status: Former smoker Past Alcohol Use History: None Reported, Rare Additional Past Alcohol Use History / Comment(s): Pt smoked from [id number]. He has a rare glass of wine. Past Drug Use History: None Reported - Past Family History Mother Family Medical History: Rheumatoid Arthritis (RA) Father History Unknown: Yes Medications and Allergies Home Medications Medication Instructions Recorded Confirmed Type Donepezil HCl [Aricept] 10 mg PO BID 05/22/14 12/23/16 History Escitalopram [Lexapro] 10 mg PO DAILY 05/22/14 12/23/16 History Isosorbide Mononitrate [Imdur] 60 mg PO DAILY 05/22/14 12/23/16 History Albuterol Sulfate [Proair Hfa] 1 - 2 puff INHALATION RT-Q6H PRN 04/22/16 History Atorvastatin [Lipitor] 10 mg PO DAILY 04/22/16 12/23/16 History Aspirin EC [Ecotrin Low Dose] 81 mg PO DAILY 09/17/16 12/23/16 History Pramipexole Di-HCl [Mirapex] 0.5 - 1 mg PO HS 09/17/16 12/23/16 History Budesonide/Formoterol Fumarate 2 puff INHALATION RT-BID 12/23/16 12/23/16 History [Symbicort 160-4.5 Mcg Inhaler] Ipratropium-Albuterol Nebulize 3 ml INHALATION RT-QID PRN 12/23/16 12/23/16 History [Duoneb 0.5 mg-3 mg/3 ml Soln] Metolazone [Zaroxolyn] 2.5 mg PO DAILY 12/23/16 12/23/16 History rOPINIRole HCL [Requip] 0.25 - 0.5 mg PO HS 12/23/16 12/23/16 History Allergies Allergy/AdvReac Type Severity Reaction Status Date / Time No Known Allergies Allergy Verified 12/23/16 12:53 Physical Exam Vitals: Vital Signs Temp Pulse Resp BP Pulse Ox 12/24/16 07:49 67 12/24/16 07:40 65 12/24/16 07:39 65 12/24/16 07:30 66 95 12/24/16 07:00 55 L 17 113/52 95 12/24/16 06:30 58 L 24 106/53 93 L 12/24/16 06:00 59 L 27 H 109/50 95 12/24/16 05:30 63 30 H 112/82 91 L 12/24/16 05:00 62 37 H 127/57 93 L 12/24/16 04:30 57 L 20 110/47 94 L 12/24/16 04:00 97.4 F L 63 26 H 132/70 92 L 12/24/16 03:30 60 19 119/67 94 L 12/24/16 03:00 58 L 17 120/61 97 12/24/16 02:30 60 19 109/54 99 12/24/16 02:00 54 L 17 116/60 95 12/24/16 01:30 61 22 116/60 95 12/24/16 01:00 69 24 87/64 96 12/24/16 00:30 57 L 18 87/64 97 12/24/16 00:00 97.4 F L 58 L 21 87/64 95 12/23/16 23:30 62 32 H 94 L 12/23/16 23:00 59 L 23 96 12/23/16 22:30 59 L 30 H 90/51 95 12/23/16 22:19 52 L 19 90/51 98 12/23/16 22:00 59 L 31 H 100/54 94 L 12/23/16 21:30 53 L 32 H 78/37 93 L 12/23/16 21:00 59 L 17 101/47 99 12/23/16 20:43 80 12/23/16 20:33 59 L 12/23/16 20:32 58 L 12/23/16 20:30 56 L 30 H 88/55 90 L 12/23/16 20:26 58 L 12/23/16 20:00 60 16 96/43 96 12/23/16 19:30 55 L 26 H 106/70 90 L 12/23/16 19:00 65 26 H 100/69 96 12/23/16 18:45 63 25 H 94 L 12/23/16 18:30 57 L 25 H 101/59 95 12/23/16 18:15 53 L 26 H 94/44 93 L 12/23/16 18:00 57 L 23 94/44 95 12/23/16 17:45 49 L 16 81/44 97 12/23/16 17:30 53 L 17 80/45 96 12/23/16 17:15 57 L 18 80/45 93 L 12/23/16 17:00 55 L 25 H 77/50 92 L 12/23/16 16:45 97.5 F L 53 L 17 94/46 96 12/23/16 15:40 97.5 F L 58 L 18 111/54 94 L 12/23/16 15:25 63 90/48 96 12/23/16 15:20 66 90/46 93 L 12/23/16 15:15 57 L 87/46 97 12/23/16 13:39 62 106/69 Intake and Output 12/23/16 12/24/16 12/24/16 22:59 06:59 14:59 Intake Total 9188.262 6582.719 75 Output Total 60 90 42 Balance 3062.040 8803.719 33 Intake: IV 1375 1600 75 Dextrose 5% in Water 1, 375 600 75 000 ml @ 75 mls/hr IV . [id number] LOPEZ with Sodium Bicarb (1 Meq/ml) 150 ml Rx#:[id number] Sodium Chloride 0.9% 500 1000 1000 ml @ 999 mls/hr IV .Q31M ONE Rx#:[id number] Intake, IV Titration 259.849 361.719 Amount Heparin Sodium,Porcine/ 57.821 190.269 D5w Pmx 25,000 unit In Dextrose/Water 1 500ml. bag @ 12 UNITS/KG/HR 17. 09 mls/hr IV .Q24H LOPEZ Rx #:[id number] Meropenem 1 gm In Sodium 100 Chloride 0.9% 100 ml @ 200 mls/hr IVPB Q12HR LOPEZ Rx#:[id number] Norepinephrine 4 mg In 47.625 171.45 Sodium Chloride 0.9% 250 ml @ Titrate IV .Q0M LOPEZ Rx#:[id number] Output: Drainage 40 27 Left Lateral Abdomen 40 Right Lateral Side 27 Biliary Drain Urine 20 90 15 Straight 20 Other: Voiding Method Indwelling Catheter Weight 75 kg 75.7 kg General appearance: The patient is alert, oriented, in no acute distress. HET: Head is normocephalic and atraumatic. Pupils are equal and reactive. Oropharynx is clear without lesions. Neck: Supple without lymphadenopathy. Trachea midline. Heart: S1 S2. Regular rate and rhythm. Lungs: No crackles or wheezes are heard. Abdomen: Soft, nontender, nondistended with bowel sounds. Bile drain with dark bilious fluid. No peritoneal signs. No palpable organomegaly or masses. Extremities: Normal skin color and turgor. No cyanosis, rash, ulceration, clubbing, or edema. Radial and pedal pulses are 2/4 bilaterally.Liriano va urine. Neurological: No focal deficits. Strength and sensation are grossly intact. Results CBC & Chem 7: 12/24/16 04:00 12/24/16 04:00 Labs: Abnormal Lab Results - Last 24 Hours (Table) 12/23/16 12/23/16 12/23/16 Range/Units 15:45 17:00 17:10 WBC 13.5 H (3.8-10.6) k/uL MCHC (31.0-37.0) g/dL RDW 15.7 H (11.5-15.5) % Plt Count 97 L (150-450) k/uL Neutrophils # 10.7 H (1.3-7.7) k/uL APTT (22.0-30.0) sec ABG pH (7.35-7.45) ABG pCO2 (35-45) mmHg ABG HCO3 (21-25) mmol/L Potassium (3.5-5.1) mmol/L BUN (9-20) mg/dL Creatinine (0.66-1.25) mg/dL Glucose (74-99) mg/dL Plasma Lactic Acid José Antonio 2.5 H* (0.7-2.0) mmol/L Calcium (8.4-10.2) mg/dL Total Bilirubin (0.2-1.3) mg/dL AST (17-59) U/L ALT (21-72) U/L Total Creatine Kinase (55-170) U/L CK-MB (CK-2) (0.0-2.4) ng/mL Troponin I (0.000-0.034) ng/mL Albumin (3.5-5.0) g/dL Urine Protein 1+ H (Negative) Urine Blood Moderate H (Negative) Urine RBC 98 H (0-5) /hpf Amorphous Sediment Few H (None) /hpf Urine Bacteria Occasional H (None) /hpf Hyaline Casts 5 H (0-2) /lpf Urine Mucus Rare H (None) /hpf 12/23/16 12/23/16 12/23/16 Range/Units 17:10 17:10 21:25 WBC (3.8-10.6) k/uL MCHC (31.0-37.0) g/dL RDW (11.5-15.5) % Plt Count (150-450) k/uL Neutrophils # (1.3-7.7) k/uL APTT 46.6 H (22.0-30.0) sec ABG pH (7.35-7.45) ABG pCO2 (35-45) mmHg ABG HCO3 (21-25) mmol/L Potassium (3.5-5.1) mmol/L BUN (9-20) mg/dL Creatinine (0.66-1.25) mg/dL Glucose (74-99) mg/dL Plasma Lactic Acid José Antonio (0.7-2.0) mmol/L Calcium (8.4-10.2) mg/dL Total Bilirubin (0.2-1.3) mg/dL AST (17-59) U/L ALT (21-72) U/L Total Creatine Kinase 192 H (55-170) U/L CK-MB (CK-2) 15.3 H* (0.0-2.4) ng/mL Troponin I 4.490 H* (0.000-0.034) ng/mL Albumin (3.5-5.0) g/dL Urine Protein (Negative) Urine Blood (Negative) Urine RBC (0-5) /hpf Amorphous Sediment (None) /hpf Urine Bacteria (None) /hpf Hyaline Casts (0-2) /lpf Urine Mucus (None) /hpf 12/23/16 12/23/16 12/24/16 Range/Units 21:25 22:31 04:00 WBC (3.8-10.6) k/uL MCHC (31.0-37.0) g/dL RDW (11.5-15.5) % Plt Count (150-450) k/uL Neutrophils # (1.3-7.7) k/uL APTT (22.0-30.0) sec ABG pH 7.20 L* (7.35-7.45) ABG pCO2 54 H (35-45) mmHg ABG HCO3 20 L (21-25) mmol/L Potassium 5.6 H (3.5-5.1) mmol/L BUN 56 H 60 H (9-20) mg/dL Creatinine 2.30 H 2.36 H (0.66-1.25) mg/dL Glucose 119 H (74-99) mg/dL Plasma Lactic Acid José Antonio (0.7-2.0) mmol/L Calcium 7.8 L 7.4 L (8.4-10.2) mg/dL Total Bilirubin 1.9 H (0.2-1.3) mg/dL AST 2310 H (17-59) U/L ALT 2171 H (21-72) U/L Total Creatine Kinase (55-170) U/L CK-MB (CK-2) (0.0-2.4) ng/mL Troponin I (0.000-0.034) ng/mL Albumin 3.2 L (3.5-5.0) g/dL Urine Protein (Negative) Urine Blood (Negative) Urine RBC (0-5) /hpf Amorphous Sediment (None) /hpf Urine Bacteria (None) /hpf Hyaline Casts (0-2) /lpf Urine Mucus (None) /hpf 12/24/16 12/24/1617 Range/Units 04:00 04:00 04:14 WBC 14.0 H (3.8-10.6) k/uL MCHC 30.8 L (31.0-37.0) g/dL RDW 15.8 H (11.5-15.5) % Plt Count 117 L (150-450) k/uL Neutrophils # 11.1 H (1.3-7.7) k/uL APTT 38.5 H (22.0-30.0) sec ABG pH (7.35-7.45) ABG pCO2 (35-45) mmHg ABG HCO3 (21-25) mmol/L Potassium (3.5-5.1) mmol/L BUN (9-20) mg/dL Creatinine (0.66-1.25) mg/dL Glucose (74-99) mg/dL Plasma Lactic Acid José Antonio 2.8 H* (0.7-2.0) mmol/L Calcium (8.4-10.2) mg/dL Total Bilirubin (0.2-1.3) mg/dL AST (17-59) U/L ALT (21-72) U/L Total Creatine Kinase (55-170) U/L CK-MB (CK-2) (0.0-2.4) ng/mL Troponin I (0.000-0.034) ng/mL Albumin (3.5-5.0) g/dL Urine Protein (Negative) Urine Blood (Negative) Urine RBC (0-5) /hpf Amorphous Sediment (None) /hpf Urine Bacteria (None) /hpf Hyaline Casts (0-2) /lpf Urine Mucus (None) /hpf Microbiology - Last 24 Hours (Table) 12/23/16 17:10 Gram Stain - Preliminary Aspirate Body Fluid Culture - Preliminary 12/23/16 15:45 Urine Culture - Preliminary Urine,Catheterized Assessment and Plan (1) Elevated liver enzymes Narrative/Plan: Ischemic hepatitis secondary to hypoperfusion hypotension Status: Acute (2) Sepsis Narrative/Plan: Secondary acute cholecystitis status post percutaneous cholecystostomy tube Status: Acute (3) Non-ST elevated myocardial infarction Status: Acute (4) Diarrhea Status: Acute Plan: 1. Supportive measures. General surgery following closely. 2. Repeat liver enzymes in the a.m. 3. Check hepatitis panel. 4. Will follow with you. Thank you for this kind referral and the opportunity to participate in the care of your patient. This consultation was discussed with Dr. Mcdonough. The impression and plan of care have been directed as dictated.
--- NOTE | 2016-12-24 10:00 | US ---
EXAMINATION TYPE: US liver DATE OF EXAM: 12/24/2016 9:33 AM COMPARISON: 12/23/2016 CLINICAL HISTORY: elevated liver enzymes . percutaneous cholecystectomy tube insertion 12/23/16 EXAM MEASUREMENTS: Liver Length: 16.4 cm Gallbladder Wall: CBD: 0.4 cm Right Kidney: 10.0 x 4.7 x 4.6 cm Pancreas: obscured by overlying bowel content Liver: appears wnl Gallbladder: Decompressed with cholecystostomy tube insertion. CBD: limited evaluation, appears wnl as visualized Right Kidney: difficult to visualize, echogenic in appearance with multiple cystic areas Ascites noted adjacent to liver IMPRESSION: 1. Limited exam demonstrates a persistent small amount of ascites also noted on the previous exam. 2. Gallbladder not well seen with suggested just the placement of cholecystostomy tube. 3. Liver is homogeneous with no focal mass. 4. Pancreas is obscured by bowel gas. Previously described CT mass is not seen by ultrasound. 5. Right kidney is not well visualized which is compatible with previous atrophic changes and small c ysts seen by CT scan.
--- NOTE | 2016-12-24 11:32 | ECHOF ---
Referral Reason:chf MEASUREMENTS -------- HEIGHT: 165.1 cm WEIGHT: 75.3 kg BP: 114/42 RVIDd: 3.8 cm (< 3.3) IVSd: 1.2 cm (0.6 - 1.1) LVIDd: 4.5 cm (3.9 - 5.3) LVPWd: 1.2 cm (0.6 - 1.1) IVSs: 1.7 cm LVIDs: 3.8 cm LVPWs: 1.4 cm LA Diam: 4.6 cm (2.7 - 3.8) LAESV Index (A-L): 35.22 ml/m Ao Diam: 3.2 cm (2.0 - 3.7) AV Cusp: 1.8 cm (1.5 - 2.6) MV EXCURSION: 17.701 mm (> 18.000) MV EF SLOPE: 72 mm/s (70 - 150) EPSS: 1.6 cm MV E Taqueria: 0.67 m/s MV DecT: 191 ms MV A Taqueria: 0.41 m/s MV E/A Ratio: 1.65 RAP: 15.00 mmHg RVSP: 64.22 mmHg FINDINGS -------- This was a technically adequate study. The left ventricular size is normal. There is borderline concentric left ventricular hypertrophy. There is severe global hypokinesis of LV . Overall left ventricular systolic function is severely impaired with, an EF between 20 - 25 %. Mitral Doppler inflow pattern suggests diastolic filling abnormality 11.55. The right ventricle is mild to moderately enlarged. LA is moderately dilated 34-39 ml/m2 The right atrium is normal in size. There is mild to moderate aortic valve sclerosis. Mild mitral annular calcification present. There is trace to mild mitral regurgitation. Wrpz-fb-yvguewop tricuspid regurgitation present. There is severe pulmonary hypertension. The right ventricular systolic pressure, as measured by Doppler, is 64.22mmHg. The pulmonic valve is normal. There is no pulmonic regurgitation present. The aortic root size is normal. The inferior vena cava is dilated with no significant inspiratory collapse which is consistent estimated right atrial pressure of >15 mmHg. There is no pericardial effusion. CONCLUSIONS -------- 1. This was a technically adequate study. 2. Mild mitral annular calcification present. 3. There is trace to mild mitral regurgitation. 4. Lggg-js-vffdpeem tricuspid regurgitation present. 5. There is severe pulmonary hypertension. 6. The right ventricular systolic pressure, as measured by Doppler, is 64.22mmHg. 7. The pulmonic valve is normal. 8. The aortic root size is normal. 9. The inferior vena cava is dilated with no significant inspiratory collapse which is consistent estimated right atrial pressure of >15 mmHg. 10. There is no pericardial effusion. 11. The left ventricular size is normal. 12. There is borderline concentric left ventricular hypertrophy. 13. There is severe global hypokinesis of LV . 14. Overall left ventricular systolic function is severely impaired with, an EF between 20 - 25 %. 15. Mitral Doppler inflow pattern suggest diastolic filling abnormality 11.55. 16. The right ventricle is mild to moderately enlarged. 17. LA is moderately dilated 34-39 ml/m2 18. There is mild to moderate aortic valve sclerosis. BANDER: Carmelina Burks RDCS
[2016-12-24 11:39] LABS: Hepatitis B Surface Ag Index 0.08
[2016-12-24 11:45] LABS: Hepatitis B Core IgM Index 0.04
[2016-12-24 11:57] LABS: Hepatitis C Virus IgG Index 0.04
[2016-12-24 12:06] LABS: Hepatitis C Virus IgG Ab Negative (Negative)
--- NOTE | 2016-12-24 13:07 | HP ---
DATE OF ADMISSION: 12/23/2016 CHIEF COMPLAINT: Weakness and nausea. HISTORY OF PRESENT ILLNESS: This 81-year-old gentleman with a past medical history of asthma, CAD, CHF, COPD, dementia, hypertension, hyperlipidemia, myocardial infarction, history of CAD with CABG, being followed by Dr. Trevor Chen in the outpatient setting, was previously admitted to [facility] recently. The patient had multiple medical problems including congestive heart failure and bilateral leg cellulitis also. The patient had some diarrhea subsequently. The patient was also complaining of abdominal pain and vomiting. The patient came to [facility] and was found to have features of acute cholecystitis. A cholecystectomy tube was placed interventional radiology. The patient was started on broad-spectrum IV antibiotics. He is being closely monitored. Of note, the patient also has multiple abnormalities including elevated indicating sepsis as well as elevated WBC. The patient also had some hematuria. Troponin is elevated up to 5.53, indicating acute non-ST segment myocardial infarction. AST and ALT also elevated as well. No history of fevers or rigors. No history of headaches, loss of consciousness or seizures. PAST MEDICAL HISTORY: History of asthma, CAD, CHF, COPD, dementia, hypertension, hyperlipidemia, myocardial infarction, COPD, CAD with CABG. Medications prior to admission: 1. Keppra 0.25 mg daily. 2. Mirapex 0.5 to 1 mg daily. 3. Zaroxolyn 2.5 mg daily. 4. Imdur 60 mg daily. 5. DuoNeb q.i.d. and p.r.n. 6. Lasix 40 mg daily. 7. Lexapro 10 mg daily. 8. Aricept 10 mg b.i.d. 9. Symbicort 2 puffs b.i.d. 10. Lipitor 10 mg daily. 11. Tenormin 25 mg daily. 12. Ecotrin 81 mg. 13. ProAir 1 to 2 puffs every 6 p.r.n. ALLERGIES: None. FAMILY HISTORY: Rheumatoid arthritis in the family. SOCIAL HISTORY: Previous history of smoking. No alcohol intake. REVIEW OF SYSTEMS: ENT: Diminishing hearing, diminished vision. CARDIOVASCULAR: As mentioned earlier. RESPIRATORY: As mentioned earlier. GI: No nausea. : No dysuria. NERVOUS SYSTEM: No numbness or weakness. ALLERGY/IMMUNOLOGY: No hayfever. MUSCULOSKELETAL: As mentioned. PSYCHIATRY: As mentioned. On exam, alert, oriented x3. Pulse 53, blood pressure 94/46, respirations 22, temperature 97.5, pulse ox 96% on 4 L. HEENT: Conjunctivae normal. Oral mucosa moist. NECK: No JVD, no carotid bruit, no lymph node enlargement. CARDIOVASCULAR: S1 and S2 muffled. LUNGS: Breath sounds diminished at the bases. Scattered rhonchi and crackles. ABDOMEN: Soft, status post cholecystectomy. Mild diffuse tenderness and mild diffuse distention. Bowel sounds diminished. No ascites. EXTREMITIES: Legs no edema, no swelling. NERVOUS SYSTEM: Higher functions as mentioned. Moves all limbs. No focal deficits. LYMPH: No lymph nodes palpable in the neck, axillae or groin. SKIN: No rashes. LABS: WBC 13.1, hemoglobin 14.5, INR 1.7. 2.5. Bilirubin is noted. Troponin 5.350. ASSESSMENT: 1. Acute cholecystitis with severe sepsis and hypotension and septic shock with increased WBC. 2. Acute non-ST segment elevation myocardial infarction with troponin 5.350. 3. Chronic obstructive pulmonary disease. 4. Elevated lactic acid secondary to sepsis. 5. Increased bilirubin, increased AST and ALT secondary to possibly cholelithiasis or hepatitis secondary to sepsis. 6. Hematuria. 7. Increased creatinine with acute renal failure, possibly prerenal, acute tubular necrosis. 8. Hyperkalemia secondary to renal failure. 9. Acute metabolic acidosis, possibly secondary to sepsis. 10. History of asthma and chronic obstructive pulmonary disease. 11. History of coronary artery disease. 12. History of congestive heart failure. 13. Hypertension. 14. Hyperlipidemia. 15. Myocardial infarction. 16. History of chronic hypoxic respiratory failure. 17. History of lung cancer, non-small cell type and bilobectomy in 1999. 18. History of coronary artery disease, coronary artery bypass grafting. 19. History of cardiac catheterization. 20. Remote history of nicotine dependence. 21. Congestive heart failure with chronic diastolic dysfunction, ejection fraction 50% to 55%. 22. History of leg cellulitis. 23. History of moderate pulmonary hypertension. 24. History of apparent dementia. 25. History of metabolic encephalopathy, chronic. 26. History of abdominal aortic aneurysm repair. 27. History of cataracts. 28. FULL CODE. RECOMMENDATIONS: This 81-year-old gentleman who presented with multiple medical problems. Recommend continue medications, continue symptomatic treatment, continue broad-spectrum IV antibiotics. Otherwise, I would recommend cultures. Closely follow with Dr. Machuca and Dr. Chang. Guarded prognosis because of the multiple complex medical issues. I would also recommend intensive bronchodilators. Continue to monitor. Guarded prognosis because of multiple complex medical issues. Further recommendations to follow. MTDD
--- NOTE | 2016-12-24 14:11 | P.PN ---
Subjective Principal diagnosis: Acute sepsis secondary to acute cholecystitis. This is an 81-year-old male patient with advanced COPD, coronary artery disease , chronic hypoxic hypercapnic respiratory failure in addition to multiple other medical positive comorbidities with a baseline chronic renal failure, came into the emergency department with generalized weakness fatigue, nausea, and frequent bouts of diarrhea that was going on over the past 2-3 days. Yesterday for example the patient had at least 7-10 bouts of liquidy bowel movements. The patient came into the emergency department and he was tachycardic and hypotensive and his initial blood pressure was 80/64. He was given 500 mL of IV fluids to stabilize his blood pressure. He was having some vague diffuse abdominal pain more so on the right upper quadrant area. He had no chest pain. He was a mild degree of respiratory distress note that he has been chronically dyspneic related to his COPD. The patient was found to have significant abnormalities in his blood work. Specifically, he was found to have leukocytosis with a WBC count of 15.6, he was acidotic with a pH of 7.28, he was in acute on top of chronic renal failure knowing that his baseline creatinine is around 1.5 and his current creatinine is up to 2.1 and he was oliguric and he had obvious signs of diminished urine output. His lactic acid level was at 5.3 and the patient's troponin peaked at 5.3. His proBNP was more than 90,000. His chest x-ray showed thyromegaly and pulmonary vascular congestion and small bilateral pleural effusions. I discussed the case with emergency department physician. I also noted that the patient's liver function tests were quite abnormal with an AST of 961 and ALP of 761 and normal alkaline phosphatase and bilirubin. Nevertheless the ultrasound of the abdomen that was done in the emergency department showed changes consistent with acute cholecystitis and gallbladder wall thickening and right kidney was atrophic with multi cysts and there was no evidence of hydronephrosis. The patient was started on examination of Levaquin and Flagyl. Surgical consultation was obtained. The patient obviously was not a good surgical candidate for any surgical intervention. At that point I contacted interventional radiology will proceed with a percutaneous drainage of the gallbladder. A total of 200 mL of fluid was aspirated and the fluid was sent for microbial cultures. At this point in time, patient is in the intensive care unit. His systolic blood pressures the mid 90s. No change in mental status. No chest pain. His chronic shortness of breath as mentioned. His urine output is diminished still. No chest pain. No significant abdominal pain. The cholecystostomy tube is in good location and is actively draining. Patient was reevaluated today on 12/24/2016, seems to be doing better clinically , hemodynamically stable, however his liver enzymes are taking a significant sharp rise. And the drainage from the biliary tube seems to be normal biliary drainage, does not seem to be purulent at all. Hence we'll recommend ultrasound of the liver, and possible GI consultation, I'm wondering of the patient will eventually need ERCP. Discussed his condition with the surgeon on the case, and she felt basically the same. Labs showed WBC count of 14.0 hemoglobin 14.8. Transaminases are elevated. BUN is 60 creatinine 2.36 lactic acid is 2.8 AST is 2310 ALT is 2171 alkaline phosphatase is 79 troponin is 3.510 liver ultrasound showed small ascites, liver was homogeneous no focal mass. Pancreatic mass is not seen on ultrasound. This was reported as an addendum on the last CT of the abdomen, apparently this was not addressed by gastroenterology and by general surgery on the case, I went back to the old report of the CT of the abdomen which was done on 06/07/2016, there was a mention of a cystic focus associated with the pancreas measuring 3.5 cm and at that time it was reported to be smaller in size compared to January of 2016. Objective - Vital Signs Vital signs: Vital Signs Temp 97.5 F L 12/24/16 08:00 Pulse 69 12/24/16 11:10 Resp 24 12/24/16 09:00 BP 106/65 12/24/16 09:00 Pulse Ox 94 L 12/24/16 09:00 Intake & Output 12/23/16 12/24/16 12/24/16 18:59 06:59 18:59 Intake Total 280.114 0916.165 475.232 Output Total 20 130 92 Balance 219.848 1991.165 383.232 Weight 75.7 kg 75.7 kg Intake: IV 575 2400 225 Dextrose 5% in Water 1, 75 900 225 000 ml @ 75 mls/hr IV . [id number] [facility] with Sodium Bicarb (1 Meq/ml) 150 ml Rx#:[id number] Sodium Chloride 0.9% 413 009 2259 ml @ 999 mls/hr IV .Q31M [facility] Rx#:[id number] Intake, IV Titration 54.403 567.165 250.232 Amount Heparin Sodium,Porcine/ 248.090 150.232 D5w Pmx 25,000 unit In Dextrose/Water 1 500ml. bag @ 12 UNITS/KG/HR 17. 09 mls/hr IV .Q24H [facility] Rx #:[id number] Meropenem 1 gm In Sodium 100 100 Chloride 0.9% 100 ml @ 200 mls/hr IVPB Q12HR [facility] Rx#:[id number] Norepinephrine 4 mg In 219.075 Sodium Chloride 0.9% 250 ml @ Titrate IV .Q0M [facility] Rx#:[id number] Output: Drainage 40 27 Left Lateral Abdomen 40 Right Lateral Side 27 Biliary Drain Urine 20 90 65 Straight 20 Other: Voiding Method Indwelling Catheter Indwelling Catheter - Exam Head exam was generally normal. There was no scleral icterus or corneal arcus. Mucous membranes were moist.Neck was supple and without jugular venous distension, thyromegaly, or carotid bruits. Carotids were easily palpable bilaterally. There was no adenopathy. Lung sounds are diminished bilaterally and there is diffuse extremity wheezes throughout the lung mcclellan and there is prolongation of expiratory phase of breathing. Heart sounds are irregular and there is frequent premature atrial beats, positive S1-S2 and there is no significant murmurs appreciated. Abdomen is soft and there is a cholecystostomy tube in the right upper quadrant area. Minimal right upper quadrant direct tenderness. No rebound and some guarding. Bowel sounds are hypoactive. Extremities are showing diminished pulses and there is no cyanosis or clubbing. Neurologically the patient is awaiting alert and there is no focal neurological deficits. - Labs CBC & Chem 7: 12/24/16 04:00 12/24/16 04:00 Labs: Abnormal Lab Results - Last 24 Hours (Table) 12/23/16 12/23/16 12/23/16 Range/Units 15:45 17:00 17:10 WBC 13.5 H (3.8-10.6) k/uL MCHC (31.0-37.0) g/dL RDW 15.7 H (11.5-15.5) % Plt Count 97 L (150-450) k/uL Neutrophils # 10.7 H (1.3-7.7) k/uL APTT (22.0-30.0) sec ABG pH (7.35-7.45) ABG pCO2 (35-45) mmHg ABG HCO3 (21-25) mmol/L Potassium (3.5-5.1) mmol/L BUN (9-20) mg/dL Creatinine (0.66-1.25) mg/dL Glucose (74-99) mg/dL Plasma Lactic Acid José Antonio 2.5 H* (0.7-2.0) mmol/L Calcium (8.4-10.2) mg/dL Total Bilirubin (0.2-1.3) mg/dL AST (17-59) U/L ALT (21-72) U/L Total Creatine Kinase (55-170) U/L CK-MB (CK-2) (0.0-2.4) ng/mL Troponin I (0.000-0.034) ng/mL Albumin (3.5-5.0) g/dL Urine Protein 1+ H (Negative) Urine Blood Moderate H (Negative) Urine RBC 98 H (0-5) /hpf Amorphous Sediment Few H (None) /hpf Urine Bacteria Occasional H (None) /hpf Hyaline Casts 5 H (0-2) /lpf Urine Mucus Rare H (None) /hpf 12/23/16 12/23/16 12/23/16 Range/Units 17:10 17:10 21:25 WBC (3.8-10.6) k/uL MCHC (31.0-37.0) g/dL RDW (11.5-15.5) % Plt Count (150-450) k/uL Neutrophils # (1.3-7.7) k/uL APTT 46.6 H (22.0-30.0) sec ABG pH (7.35-7.45) ABG pCO2 (35-45) mmHg ABG HCO3 (21-25) mmol/L Potassium (3.5-5.1) mmol/L BUN (9-20) mg/dL Creatinine (0.66-1.25) mg/dL Glucose (74-99) mg/dL Plasma Lactic Acid José Antonio (0.7-2.0) mmol/L Calcium (8.4-10.2) mg/dL Total Bilirubin (0.2-1.3) mg/dL AST (17-59) U/L ALT (21-72) U/L Total Creatine Kinase 192 H (55-170) U/L CK-MB (CK-2) 15.3 H* (0.0-2.4) ng/mL Troponin I 4.490 H* (0.000-0.034) ng/mL Albumin (3.5-5.0) g/dL Urine Protein (Negative) Urine Blood (Negative) Urine RBC (0-5) /hpf Amorphous Sediment (None) /hpf Urine Bacteria (None) /hpf Hyaline Casts (0-2) /lpf Urine Mucus (None) /hpf 12/23/16 12/23/16 12/24/16 Range/Units 21:25 22:31 04:00 WBC (3.8-10.6) k/uL MCHC (31.0-37.0) g/dL RDW (11.5-15.5) % Plt Count (150-450) k/uL Neutrophils # (1.3-7.7) k/uL APTT (22.0-30.0) sec ABG pH 7.20 L* (7.35-7.45) ABG pCO2 54 H (35-45) mmHg ABG HCO3 20 L (21-25) mmol/L Potassium 5.6 H (3.5-5.1) mmol/L BUN 56 H 60 H (9-20) mg/dL Creatinine 2.30 H 2.36 H (0.66-1.25) mg/dL Glucose 119 H (74-99) mg/dL Plasma Lactic Acid José Antonio (0.7-2.0) mmol/L Calcium 7.8 L 7.4 L (8.4-10.2) mg/dL Total Bilirubin 1.9 H (0.2-1.3) mg/dL AST 2310 H (17-59) U/L ALT 2171 H (21-72) U/L Total Creatine Kinase (55-170) U/L CK-MB (CK-2) (0.0-2.4) ng/mL Troponin I (0.000-0.034) ng/mL Albumin 3.2 L (3.5-5.0) g/dL Urine Protein (Negative) Urine Blood (Negative) Urine RBC (0-5) /hpf Amorphous Sediment (None) /hpf Urine Bacteria (None) /hpf Hyaline Casts (0-2) /lpf Urine Mucus (None) /hpf 12/24/16 12/24/16 12/24/16 Range/Units 04:00 04:00 04:00 WBC 14.0 H (3.8-10.6) k/uL MCHC 30.8 L (31.0-37.0) g/dL RDW 15.8 H (11.5-15.5) % Plt Count 117 L (150-450) k/uL Neutrophils # 11.1 H (1.3-7.7) k/uL APTT 38.5 H (22.0-30.0) sec ABG pH (7.35-7.45) ABG pCO2 (35-45) mmHg ABG HCO3 (21-25) mmol/L Potassium (3.5-5.1) mmol/L BUN (9-20) mg/dL Creatinine (0.66-1.25) mg/dL Glucose (74-99) mg/dL Plasma Lactic Acid José Antonio (0.7-2.0) mmol/L Calcium (8.4-10.2) mg/dL Total Bilirubin (0.2-1.3) mg/dL AST (17-59) U/L ALT (21-72) U/L Total Creatine Kinase (55-170) U/L CK-MB (CK-2) (0.0-2.4) ng/mL Troponin I 3.510 H* (0.000-0.034) ng/mL Albumin (3.5-5.0) g/dL Urine Protein (Negative) Urine Blood (Negative) Urine RBC (0-5) /hpf Amorphous Sediment (None) /hpf Urine Bacteria (None) /hpf Hyaline Casts (0-2) /lpf Urine Mucus (None) /hpf 12/24/16 12/24/16 Range/Units 04:14 11:48 WBC (3.8-10.6) k/uL MCHC (31.0-37.0) g/dL RDW (11.5-15.5) % Plt Count (150-450) k/uL Neutrophils # (1.3-7.7) k/uL APTT 41.8 H (22.0-30.0) sec ABG pH (7.35-7.45) ABG pCO2 (35-45) mmHg ABG HCO3 (21-25) mmol/L Potassium (3.5-5.1) mmol/L BUN (9-20) mg/dL Creatinine (0.66-1.25) mg/dL Glucose (74-99) mg/dL Plasma Lactic Acid José Antonio 2.8 H* (0.7-2.0) mmol/L Calcium (8.4-10.2) mg/dL Total Bilirubin (0.2-1.3) mg/dL AST (17-59) U/L ALT (21-72) U/L Total Creatine Kinase (55-170) U/L CK-MB (CK-2) (0.0-2.4) ng/mL Troponin I (0.000-0.034) ng/mL Albumin (3.5-5.0) g/dL Urine Protein (Negative) Urine Blood (Negative) Urine RBC (0-5) /hpf Amorphous Sediment (None) /hpf Urine Bacteria (None) /hpf Hyaline Casts (0-2) /lpf Urine Mucus (None) /hpf Microbiology - Last 24 Hours (Table) 12/23/16 17:10 Gram Stain - Preliminary Aspirate Body Fluid Culture - Preliminary 12/23/16 15:45 Urine Culture - Preliminary Urine,Catheterized Assessment and Plan Plan: 1 sepsis likely secondary to an acute cholecystitis, status post percutaneous cholecystostomy tube drainage. The patient is currently being resuscitated IV fluids and the patient is covered with a combination of Levaquin and Flagyl. The bili fluid will be sent for Gram stain and culture. Gram stain so far is negative 2 hypotension currently on no pressors and the patient is being gently hydrated with IV fluids. Urine output is diminished at this point 3 acute kidney injury on top of chronic renal failure with a creatinine of 2.1 and secondary oligoria, rule out secondary to hypotension/sepsis 4 acute non-STEMI in the setting of hypotension and sepsis and EKG showing normal sinus rhythm with frequent PVCs and there is no ST segment elevation or depressions. 5 coronary artery disease with previous carotid bypass surgery 6 advanced COPD with chronic hypoxic and hypercapnic respiratory failure. The patient is a CO2 retainer and has compensated 3 metabolic alkalosis at baseline with a bicarb level of around 33 to 37 7 lactic acidosis secondary to sepsis. The patient has an anion gap metabolic acidosis at this point 8 lung cancer status post right bilobar resection for non-small cell lung cancer in 1999 9 abdominal aortic aneurysm repaired surgically 10 carotid endarterectomy for carotid artery disease 11 dementia 12 hyperlipidemia 13 hypertension 14 diverticular disease 15 diarrhea with a negative C. 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 This will have to be addressed again by surgery and gastroenterology on the case. Recommendation: Continue present treatment plan, continue antibiotics, monitor liver enzymes, lactic acid, electrolytes, and renal profile. Patient remains critically ill, and I will keep him in the ICU. Overall prognosis is definitely poor and guarded. Critical care time is 35 minutes. Time with Patient: Greater than 30
--- NOTE | 2016-12-24 14:24 | CONS ---
DATE OF CONSULTATION: REASON FOR CONSULT: Renal failure. HISTORY OF PRESENT ILLNESS: Patient is an 81-year-old white male who was admitted to the hospital with weakness, not feeling well. He was fatigued. He did have some diarrhea. Patient had an ultrasound of the abdomen which showed evidence of acute cholecystitis. He had a biliary tube placed, cholecystostomy tube placed and is currently maintained on antibiotics. Patient was also hypotensive at the time of admission and required pressors and currently he is off of vasopressors and maintained on IV fluids. He has a bicarb drip running at 75 mL an hour. Patient has been recently treated with IV fluids. Hypotension has improved. His troponins were also elevated at 10. Lactic acid was elevated at about 5 at the time of admission and serum creatinine was at 2.1 mg/dL. His previous creatinine was at 1.4 and 0.9 mg/dL in June of 2016. Urine output is currently maintained at about 20 to 30 mL/h. PAST MEDICAL HISTORY: Coronary artery disease, COPD, cardiomyopathy, CHF, dementia, hyperlipidemia, history of lung cancer non-small cell type status post bi-lobectomy in 1999, carotid artery disease, aortic aneurysm with repair, hyperlipidemia, hypertension. PAST SURGICAL HISTORY: Adenoidectomy, coronary artery bypass surgery, cardiac catheterization, hernia repair, tonsillectomy, aortic aneurysm repair, carotid endarterectomy, right lung resection for lung cancer, cataract surgery. SOCIAL HISTORY: The patient is an ex-smoker. No history of drug abuse or alcohol abuse. Medications at home included Aricept, Lexapro, Imdur, Lipitor, Pro-Air, Zaroxolyn, Requip. ALLERGIES: None. On examination, the patient is currently comfortable, awake. He is not in any acute distress. He is asking for food. Blood pressure is 106/65, heart rate 57 per minute, he is afebrile. Examination of the heart S1 and S2. Examination of the lungs: Bilateral breath sounds are heard. Abdomen is soft, nontender. Examination of lower extremities shows no evidence of edema. SECURITY FLEX UTILITY OFFICER exam is grossly intact. Labs show sodium 139, potassium 4.7, BUN 60, serum creatinine 2.36, AST 2310, ALT 2171, albumin 3.2. UA shows 1+ protein, moderate blood, RBCs 98. ASSESSMENT: 1. Acute kidney injury, acute tubular necrosis, currently nonoliguric secondary to hypotension, hypoperfusion and sepsis. Continue with IV fluids. We can change the bicarb to normal saline. 2. Hyperkalemia, currently improved, associated with acute kidney injury, low flow state. 3. Cholecystitis, currently with a cholecystostomy tube, being followed by general surgery. 4. Shock liver. Monitor INR. PLAN: Change IV fluids to normal saline, repeat labs in a.m., monitor INR, monitor liver enzymes. Continue to avoid nephrotoxic agents. Thank you for this consultation. Will continue to follow the patient with you during his hospitalization.
[2016-12-24] MEDS: HEPARIN SODIUM,PORCINE/D5W PMX 25,000 UNIT in DEXTROSE/WATER 1 500ML.BAG IV SCH (16:37)
--- NOTE | 2016-12-24 17:43 | CONS ---
DATE OF CONSULTATION: This is an 81-year-old gentleman with a known history of aortocoronary bypass surgery in the past. He has history of hypertension, hyperlipidemia, CAD, previous inferior [place] and bypass surgery. He came into the hospital yesterday, brought in by family because of weakness, lack of energy, and nausea and also had some diarrhea, fatigue. He did not have any chest discomfort. He has been on some antibiotics recently. However, after arrival, he was found to have abnormal liver function tests and work-up revealed that he had acute cholecystitis-type picture with a lactic acid levels of 5. He is also known to have an ejection fraction of 45 to 50% range. He had percutaneously inserted biliary drainage tube and the drainage has been adequate. However, he has received IV fluids, antibiotics, lactic acid level has improved, but not normalized. In the process his troponin level has also gone up to 5 and the second one was 4.9. I was asked to see him with regards to his CHF and troponin level. His BNP is elevated. He is; however, not in any overt distress. He seems to be relatively comfortable at the time of my evaluation, blood pressure is normal. He has a cholecystotomy percutaneously inserted tube at this time with a good drainage. EKG revealed ectopic atrial rhythm-type picture with isolated PVCs and nonspecific diffuse ST and T wave changes. Ischemia cannot be excluded. Laboratory data suggests initial troponin level of 5.3. A repeat one of about 4.4. Possibility of a non-ST elevation [place] in the setting of acute sepsis and congestive heart failure should be considered. His BNP was 90,000. PAST MEDICAL HISTORY: Remarkable for CAD, previous myocardial infarction and ejection fraction in the 45% range with a prior bypass surgery, hypertension, hypercholesterolemia, history of smoking and chronic obstructive pulmonary disease, hypothyroidism, and bronchial asthma. On examination, blood pressure is 118/70. Patient was on Levophed, but the drip is off, pulse rate is about 64 per minute. HEENT: Unremarkable. Fundus was not examined by me. Neck is supple. There is JVD of 1 cm. No carotid bruit. Heart exam reveals S1 and S2 heard normally. No significant murmurs are audible. Lungs reveal bilateral diminished air entry over both bases. ABDOMEN: Soft. Lower extremities reveal diminished pulses. CENTRAL NERVOUS SYSTEM: Grossly no focal deficits. IMPRESSION: 1. Acute cholecystitis with probably bile stone obstruction in the neck of the gallbladder status post biliary drainage percutaneously. 2. Acute on chronic renal failure. His creatinine is about 2.3 or 2.4, normally it runs 1.5. Etiology is multifactorial. 3. Exacerbation of congestive heart failure and volume overload with elevated BNP. 4. Non-ST elevation myocardial infarction. RECOMMENDATIONS: From a cardiac standpoint, this patient has significant issues in terms of his heart failure, renal dysfunction and troponin elevation. Additionally, sepsis and cholecystitis makes it worse. I am recommending that we look at an echocardiogram, obtain additional troponin to make sure the trend is down. Continue the IV heparin that he is already ordered and seek nephrology consult. I discussed my thoughts in detail with the patient. Prognosis remains quite guarded in this patient with multiple medical problems and acute cholecystitis. He is on adequate antibiotics and efforts are being made to bring the lactic acid levels down. For now we will heparinize echocardiogram, additional troponins, seek nephrology input. Thank you very much for the consult.
--- NOTE | 2016-12-24 18:09 | PN ---
This patient was seen on rounds. He denies any abdominal pain; just general he says he does not feel well. PHYSICAL EXAM: He has been afebrile. His pulse is in the 50s to 60s. Respirations are in the low to upper 20s. His blood pressure is the 110s over 150s. He was on pressors overnight; those have been weaned. His urine output has increased. His abdomen is soft and nontender. There is a cholecystostomy tube which is draining normal-appearing bile. Labs are reviewed. He is acidotic with a pH of 7.2 last night. His lactic acid is 2.8. It is down from admission, but it is still elevated. Transaminases are increasing today versus admission. Bilirubin is stable. ASSESSMENT: 1. Sepsis with systemic inflammatory response syndrome. 2. Elevated liver function tests; unsure whether this is cholangitis, as his bile aspirate showed no evidence of any organisms. PLAN: Will repeat his ultrasound to check the size of the common bile duct. I spoke to Dr. Polanco. Will order a GI consult. Prognosis is guarded.
--- NOTE | 2016-12-24 21:10 | PN ---
DATE OF SERVICE: 12/24/2016 This 81-year-old gentleman who was admitted with acute cholecystitis, poly sepsis and severe sepsis septic shock is being closely monitored. Medical treatment recommended by surgery at this time. The patient also had acute myocardial infarction. The patient is being closely monitored in the ICU. Patient's is on pressor support at this time. LFTs are elevated. Past medical history reviewed. REVIEW OF SYSTEMS: CARDIOVASCULAR: As mentioned earlier. RESPIRATORY: As mentioned earlier. GASTROINTESTINAL: As mentioned earlier. : No dysuria. Nervous system: Diffusely weak. Current medications are reviewed and include: 1. Pulmicort 0.5 b.i.d. 2. Aricept 10 mg b.i.d. 3. Lexapro 10 mg daily. 4. Perforomist b.i.d. 5. Heparin drip IV. 6. Dilaudid 0.5 q.4. 7. Atrovent updrafts q.i.d. 9. Merrem 1 gram b.i.d. 10. Narcan. 11. Levophed drip, which was stopped. 12. Protonix IV. PHYSICAL EXAMINATION: The patient is alert and oriented times. Pulse 61, blood pressure 104/62 and respiratory rate 30, temperature 98.2, pulse ox 91% on 3 liters. HEENT: Conjunctivae normal. NECK: No jugular venous distention. CARDIOVASCULAR: S1, S2 muffled. RESPIRATORY: Breath sounds diminished at the bases. Bilateral scattered rhonchi and crackles. ABDOMEN: Soft, obese, mild diffuse discomfort. No guarding. No rigidity. No mass palpable. LEGS: No edema. CENTRAL NERVOUS SYSTEM: Higher functions as mentioned earlier. Moves all four limbs. No focal motor or sensory deficits. LYMPHATICS: No lymph nodes palpable in the neck, axillae or groin. SKIN: No ulcer, rash or bleeding. LABS: WBC 14, hemoglobin is 14.8, 38.4, 41.8, ABGs noted. Lactic acid is elevated at 2.8. LFTs, AST, ALT noted. Hepatitis panel is negative. ASSESSMENT: 1. Acute cholecystitis severe sepsis and hypotension septic shock with increased WBC present on admission. 2. Acute non-ST segment elevation myocardial infarction with troponin 5.350. present on admission. 3. Chronic obstructive pulmonary disease. 4. Elevated lactic acid secondary to sepsis. 5. Increased bilirubin, AST, ALT secondary to possible cholelithiasis and or hepatitis secondary to sepsis or choledocholithiasis. 6. Hematuria. 7. Increased creatinine with acute renal failure, possibly prerenal, and acute tubular necrosis. 8. Hyperkalemia secondary to renal failure. 9. Acute, metabolic acidosis, possible secondary to sepsis. 10. History of asthma, chronic obstructive pulmonary disease. 11. History of coronary artery disease. 12. History of congestive heart failure. 13. Hypertension. 14. Hyperlipidemia. 15. History of myocardial infarction. 16. History of chronic hypoxic respiratory failure. 17. History of lung cancer non-small cell type bilobectomy in 1999. 18. History of coronary artery disease, coronary artery bypass grafting. 19. History of cardiac catheterization. 20. Remote history nicotine dependence. 21. History of congestive heart failure with chronic diastolic dysfunction, ejection fraction 50% to 55%. 22. History of leg cellulitis. 23. Moderate pulmonary hypertension. 24. History of apparent dimension. 25. History of metabolic encephalopathy chronic. 26. History of abdominal aortic aneurysm repair. 27. History of cataracts. 28. FULL CODE. RECOMMENDATIONS AND DISCUSSION: This 81-year-old gentleman who presented with multiple complex medical issues, we will monitor the patient closely. Continue the current medications. Continue symptomatic treatment. Otherwise at this time, we will continue with broad-spectrum IV antibiotics. Monitor closely. Monitor blood pressure closely. Closely follow with surgery and cardiology. Guarded prognosis because of multiple complex medical issues. Further recommendations to follow. MTDD
[2016-12-25 05:08] LABS: Basophils % (A) 0 %; CH 28.8; CHCM 30.6; Eosinophils % (A) 0 %; HDW 2.38; HGB 15.1 gm/dL (13.0-17.5); Hypochromasia Slight; Luc % (Auto) 2; Lymphocytes # (A) 1.6 k/uL (1.0-4.8); Lymphocytes % (A) 15 %; MCH 30.4 pg (25.0-35.0); MCHC 32.2 g/dL (31.0-37.0); MCV 94.6 fL (80.0-100.0); Mean Platelet Volume 9.5; Monocytes # (A) 0.7 k/uL (0-1.0); Monocytes % (A) 6 %; Neutrophils # (A) 8.3 k/uL (1.3-7.7); Neutrophils % (A) 77 %; RBC 4.97 m/uL (4.30-5.90); RDW 15.7 % (11.5-15.5); WBC 10.8 k/uL (3.8-10.6); WBC (Perox) 10.51
[2016-12-25 05:32] LABS: Calcium 7.3 mg/dL (8.4-10.2); Total Bilirubin 1.5 mg/dL (0.2-1.3)
[2016-12-25] MEDS: IPRATROPIUM 0.5 MG/2.5 ML NEBU INHALATION SCH ×4 (07:50→19:15)
[2016-12-25] MEDS: LEVALBUTEROL NEB (CONC) 1.25 MG/0.5 ML AMP INHALATION SCH ×4 (07:50→19:15)
[2016-12-25] MEDS: BUDESONIDE 0.5 MG/2 ML NEBU INHALATION SCH ×2 (07:50→19:14)
[2016-12-25] MEDS: FORMOTEROL FUMARATE 20 MCG/2 ML NEBU INHALATION SCH ×2 (07:54→19:15)
[2016-12-25] MEDS: ESCITALOPRAM 10 MG TAB PO SCH (08:44)
[2016-12-25] MEDS: PANTOPRAZOLE 40 MG/10 ML VIAL IVP SCH (08:44)
[2016-12-25] MEDS: DONEPEZIL 10 MG TAB PO SCH ×2 (08:44→20:57)
[2016-12-25] MEDS: MEROPENEM 1 GM in SODIUM CHLORIDE 0.9% 100 ML IVPB SCH ×2 (08:44→20:57)
[2016-12-25] MEDS: SODIUM CHLORIDE 0.9% 1,000 ML IV SCH (08:44)
--- NOTE | 2016-12-25 09:17 | P.PN ---
Subjective Principal diagnosis: Sepsis non-ST elevated [place] ischemic hepatitis 81-year-old male admitted with sepsis secondary to acute cholecystitis, non- STEMI status status post cholecystotomy tube. Evaluated yesterday in regards to elevated transaminases consistent with suspect ischemic hepatitis secondary to hypoperfusion and hypotension. This morning he feels well. Requesting diet. Denies abdominal pain. Afebrile. Transaminases and bilirubin slowly improving. Hepatitis panel negative. Bile fluid cultures pending. Objective - Vital Signs Vital signs: Vital Signs Temp 97.4 F L 12/25/16 00:00 Pulse 78 12/25/16 08:17 Resp 24 12/25/16 07:00 BP 112/58 12/25/16 07:00 Pulse Ox 99 12/25/16 07:00 Intake & Output 12/24/16 12/25/16 12/25/16 18:59 06:59 18:59 Intake Total 1034.026 850 Output Total 307 505 Balance 727.026 345 Weight 75.7 kg 78.2 kg Intake: IV 525 850 Dextrose 5% in Water 1, 525 000 ml @ 75 mls/hr IV . [id number] LOPEZ with Sodium Bicarb (1 Meq/ml) 150 ml Rx#:[id number] Sodium Chloride 0.9% 1, 850 000 ml @ 100 mls/hr IV . Q10H LOPEZ Rx#:[id number] Intake, IV Titration 509.026 Amount Heparin Sodium,Porcine/ 209.026 D5w Pmx 25,000 unit In Dextrose/Water 1 500ml. bag @ 12 UNITS/KG/HR 17. 09 mls/hr IV .Q24H LOPEZ Rx #:[id number] Meropenem 1 gm In Sodium 100 Chloride 0.9% 100 ml @ 200 mls/hr IVPB Q12HR LOPEZ Rx#:[id number] Sodium Chloride 0.9% 1, 200 000 ml @ 100 mls/hr IV . Q10H LOPEZ Rx#:[id number] Output: Drainage 27 90 Right Lateral Side 27 90 Biliary Drain Urine 280 415 Other: Voiding Method Indwelling Catheter Indwelling Catheter - Exam General appearance: The patient is alert, oriented, in no acute distress. HET: Head is normocephalic and atraumatic. Pupils are equal and reactive. Oropharynx is clear without lesions. Neck: Supple without lymphadenopathy. Trachea midline. Heart: S1 S2. Regular rate and rhythm. Lungs: No crackles or wheezes are heard. Abdomen: Soft, nontender, nondistended with bowel sounds. Bile drain with dark bilious fluid. No peritoneal signs. No palpable organomegaly or masses. Extremities: Normal skin color and turgor. No cyanosis, rash, ulceration, clubbing, or edema. Radial and pedal pulses are 2/4 bilaterally.Liriano va urine. Neurological: No focal deficits. Strength and sensation are grossly in - Labs CBC & Chem 7: 12/25/16 04:35 12/25/16 04:35 Labs: Abnormal Lab Results - Last 24 Hours (Table) 12/24/16 12/24/16 12/24/16 Range/Units 04:00 11:48 19:22 WBC (3.8-10.6) k/uL RDW (11.5-15.5) % Plt Count (150-450) k/uL Neutrophils # (1.3-7.7) k/uL APTT 41.8 H 49.3 H (22.0-30.0) sec BUN (9-20) mg/dL Creatinine (0.66-1.25) mg/dL Calcium (8.4-10.2) mg/dL Total Bilirubin (0.2-1.3) mg/dL AST (17-59) U/L ALT (21-72) U/L Troponin I 3.510 H* (0.000-0.034) ng/mL Total Protein (6.3-8.2) g/dL Albumin (3.5-5.0) g/dL 12/25/16 12/25/16 12/25/16 Range/Units 04:35 04:35 04:35 WBC 10.8 H (3.8-10.6) k/uL RDW 15.7 H (11.5-15.5) % Plt Count 98 L (150-450) k/uL Neutrophils # 8.3 H (1.3-7.7) k/uL APTT 61.0 H (22.0-30.0) sec BUN 65 H (9-20) mg/dL Creatinine 2.00 H (0.66-1.25) mg/dL Calcium 7.3 L (8.4-10.2) mg/dL Total Bilirubin 1.5 H (0.2-1.3) mg/dL AST 1625 H (17-59) U/L ALT 2345 H (21-72) U/L Troponin I (0.000-0.034) ng/mL Total Protein 6.0 L (6.3-8.2) g/dL Albumin 3.0 L (3.5-5.0) g/dL Microbiology - Last 24 Hours (Table) 12/23/16 15:45 Urine Culture - Final Urine,Catheterized 12/23/16 17:10 Gram Stain - Preliminary Aspirate Body Fluid Culture - Preliminary Assessment and Plan (1) Elevated liver enzymes Narrative/Plan: Ischemic hepatitis secondary to hypoperfusion hypotension Status: Acute (2) Sepsis Narrative/Plan: Secondary acute cholecystitis status post percutaneous cholecystostomy tube Status: Acute (3) Non-ST elevated myocardial infarction Status: Acute (4) Diarrhea Status: Acute Plan: 1. Supportive measures. General surgery following closely. Diet per surgery. 2. Repeat liver enzymes in the a.m. 3. Will follow with you. Assessment and plan of care discussed with Dr. Mcdonough.
[2016-12-25] MEDS ORDERED: FUROSEMIDE 10 MG/ML 4 ML VIAL IV STA (09:46)
--- NOTE | 2016-12-25 10:23 | PN ---
Patient is seen for followup for acute kidney injury. He is maintained on IV fluids at 100 mL an hour. Urine output is adequate. Serum creatinine has improved to 2.0 from 2.36 mg/dL, prior creatinine has been as low as 0.96 in 2016 and about 1.4 mg/dL in September of this year. Patient is in the ICU as he was initially hypotensive and required pressors. He has been treated for cholecystitis and has a biliary tube in place. Cholecystostomy tube in place. He is being followed by Surgery. On examination today, blood pressure is 136/69, heart rate 82 per minute. He is afebrile. Examination of the heart, S1 and S2. Examination of the lungs, bilateral breath sounds are heard. Abdomen is soft, nontender. Examination of lower extremities shows no significant edema. ENGINE HOUSE HELPER exam is grossly intact. Labs show sodium of 138, potassium 4.0, chloride 100, 65 is the BUN and creatinine 2.0. Liver enzymes are decreasing with AST down to 1625 and ALT 2345 which is still going up. ASSESSMENT: 1. Acute kidney injury, acute tubular necrosis secondary to hypotension, hypoperfusion and sepsis, currently nonoliguric with some improvement in renal function. Continue IV fluids, but I will decrease the rate only about 50 mL an hour. 2. Mild volume overload. Agree with one dose of Lasix. 3. Cholecystitis, currently with a cholecystostomy tube in place. PLAN: Decrease IV fluids. Repeat labs in the a.m., avoid nephrotoxic agents.
--- NOTE | 2016-12-25 10:26 | XR ---
EXAMINATION TYPE: XR chest 1V DATE OF EXAM: 12/25/2016 6:25 AM COMPARISON: Prior chest x-ray December HISTORY: COPD TECHNIQUE: Single frontal view of the chest is obtained. FINDINGS: Patient is post median sternotomy and the heart remains enlarged. There is obscured left h emidiaphragm, interstitium and central vascularity appear prominently. Increasing thickening along th e lateral pleural margin may be present, there are overlying cardiac leads. No evident pneumothorax. IMPRESSION: Correlate to exclude congestive heart failure, pneumonia. Follow-up is recommended. Ther e may be increasing pleural effusion
--- NOTE | 2016-12-25 11:56 | P.PN ---
Subjective Patient continues in the intensive care unit states he feels some improvement Objective - Vital Signs Vital signs: Vital Signs Temp 96.7 F L 12/25/16 08:00 Pulse 82 12/25/16 11:46 Resp 24 12/25/16 11:30 BP 128/67 12/25/16 11:30 Pulse Ox 97 12/25/16 11:30 Intake & Output 12/24/16 12/25/16 12/25/16 18:59 06:59 18:59 Intake Total 1034.026 850 400 Output Total 307 505 410 Balance 727.026 345 -10 Weight 75.7 kg 78.2 kg 78.2 kg Intake: IV 525 850 250 Dextrose 5% in Water 1, 525 000 ml @ 75 mls/hr IV . [id number] LOPEZ with Sodium Bicarb (1 Meq/ml) 150 ml Rx#:[id number] Sodium Chloride 0.9% 1, 850 250 000 ml @ 100 mls/hr IV . Q10H LOPEZ Rx#:[id number] Intake, IV Titration 509.026 150 Amount Heparin Sodium,Porcine/ 209.026 D5w Pmx 25,000 unit In Dextrose/Water 1 500ml. bag @ 12 UNITS/KG/HR 17. 09 mls/hr IV .Q24H LOPEZ Rx #:[id number] Meropenem 1 gm In Sodium 100 100 Chloride 0.9% 100 ml @ 200 mls/hr IVPB Q12HR LOPEZ Rx#:[id number] Sodium Chloride 0.9% 1, 200 50 000 ml @ 100 mls/hr IV . Q10H LOPEZ Rx#:[id number] Output: Drainage 27 90 40 Right Lateral Side 27 90 40 Biliary Drain Urine 280 415 370 Other: Voiding Method Indwelling Catheter Indwelling Catheter Indwelling Catheter - Constitutional General appearance: Present: obese - EENT Eyes: Present: PERRLA Ears: bilateral: normal - Neck Neck: Present: normal ROM - Respiratory Respiratory: bilateral: rhonchi - Cardiovascular Rhythm: regular - Gastrointestinal General gastrointestinal: Present: soft - Integumentary Integumentary: Present: normal - Neurologic Neurologic: Present: CNII-XII intact - Musculoskeletal Musculoskeletal: Present: generalized weakness - Psychiatric Psychiatric: Present: A&O x's 3, appropriate affect, intact judgment & insight - Labs CBC & Chem 7: 12/25/16 04:35 12/25/16 04:35 Labs: Abnormal Lab Results - Last 24 Hours (Table) 12/24/16 12/24/16 12/25/16 Range/Units 11:48 19:22 04:35 WBC (3.8-10.6) k/uL RDW (11.5-15.5) % Plt Count (150-450) k/uL Neutrophils # (1.3-7.7) k/uL APTT 41.8 H 49.3 H (22.0-30.0) sec BUN 65 H (9-20) mg/dL Creatinine 2.00 H (0.66-1.25) mg/dL Calcium 7.3 L (8.4-10.2) mg/dL Total Bilirubin 1.5 H (0.2-1.3) mg/dL AST 1625 H (17-59) U/L ALT 2345 H (21-72) U/L Total Protein 6.0 L (6.3-8.2) g/dL Albumin 3.0 L (3.5-5.0) g/dL 12/25/16 12/25/16 Range/Units 04:35 04:35 WBC 10.8 H (3.8-10.6) k/uL RDW 15.7 H (11.5-15.5) % Plt Count 98 L (150-450) k/uL Neutrophils # 8.3 H (1.3-7.7) k/uL APTT 61.0 H (22.0-30.0) sec BUN (9-20) mg/dL Creatinine (0.66-1.25) mg/dL Calcium (8.4-10.2) mg/dL Total Bilirubin (0.2-1.3) mg/dL AST (17-59) U/L ALT (21-72) U/L Total Protein (6.3-8.2) g/dL Albumin (3.5-5.0) g/dL Microbiology - Last 24 Hours (Table) 12/23/16 15:45 Urine Culture - Final Urine,Catheterized 12/23/16 17:10 Gram Stain - Preliminary Aspirate Body Fluid Culture - Preliminary Assessment and Plan Plan: Assessment Acute cholecystitis with severe sepsis hypertension hypoperfusion with leukocytosis presently has cholecystotomy tube [place] non-ST elevation myocardial infarction Chronic COPD Elevated liver enzymes secondary to hypoperfusion/cholecystitis Acute renal failure related to hypoperfusion Hyperkalemia secondary to above metabolic acidosis possible secondary to sepsis History of coronary disease Hyper tension hyperlipidemia history of chronic hypoxic respiratory failure History of lung cancer nonsmall cell carcinoma Congestive heart failures diastolic dysfunction and ejection fraction 50-55% History of leg cellulitis Diarrhea history of C. difficile Continue consultation with Dr. Kelli Machuca and cardiology
--- NOTE | 2016-12-25 12:43 | P.PN ---
Subjective Principal diagnosis: Acute sepsis secondary to acute cholecystitis. This is an 81-year-old male patient with advanced COPD, coronary artery disease , chronic hypoxic hypercapnic respiratory failure in addition to multiple other medical positive comorbidities with a baseline chronic renal failure, came into the emergency department with generalized weakness fatigue, nausea, and frequent bouts of diarrhea that was going on over the past 2-3 days. Yesterday for example the patient had at least 7-10 bouts of liquidy bowel movements. The patient came into the emergency department and he was tachycardic and hypotensive and his initial blood pressure was 80/64. He was given 500 mL of IV fluids to stabilize his blood pressure. He was having some vague diffuse abdominal pain more so on the right upper quadrant area. He had no chest pain. He was a mild degree of respiratory distress note that he has been chronically dyspneic related to his COPD. The patient was found to have significant abnormalities in his blood work. Specifically, he was found to have leukocytosis with a WBC count of 15.6, he was acidotic with a pH of 7.28, he was in acute on top of chronic renal failure knowing that his baseline creatinine is around 1.5 and his current creatinine is up to 2.1 and he was oliguric and he had obvious signs of diminished urine output. His lactic acid level was at 5.3 and the patient's troponin peaked at 5.3. His proBNP was more than 90,000. His chest x-ray showed thyromegaly and pulmonary vascular congestion and small bilateral pleural effusions. I discussed the case with emergency department physician. I also noted that the patient's liver function tests were quite abnormal with an AST of 961 and ALP of 761 and normal alkaline phosphatase and bilirubin. Nevertheless the ultrasound of the abdomen that was done in the emergency department showed changes consistent with acute cholecystitis and gallbladder wall thickening and right kidney was atrophic with multi cysts and there was no evidence of hydronephrosis. The patient was started on examination of Levaquin and Flagyl. Surgical consultation was obtained. The patient obviously was not a good surgical candidate for any surgical intervention. At that point I contacted interventional radiology will proceed with a percutaneous drainage of the gallbladder. A total of 200 mL of fluid was aspirated and the fluid was sent for microbial cultures. At this point in time, patient is in the intensive care unit. His systolic blood pressures the mid 90s. No change in mental status. No chest pain. His chronic shortness of breath as mentioned. His urine output is diminished still. No chest pain. No significant abdominal pain. The cholecystostomy tube is in good location and is actively draining. Patient was reevaluated today on 12/24/2016, seems to be doing better clinically , hemodynamically stable, however his liver enzymes are taking a significant sharp rise. And the drainage from the biliary tube seems to be normal biliary drainage, does not seem to be purulent at all. Hence we'll recommend ultrasound of the liver, and possible GI consultation, I'm wondering of the patient will eventually need ERCP. Discussed his condition with the surgeon on the case, and she felt basically the same. Labs showed WBC count of 14.0 hemoglobin 14.8. Transaminases are elevated. BUN is 60 creatinine 2.36 lactic acid is 2.8 AST is 2310 ALT is 2171 alkaline phosphatase is 79 troponin is 3.510 liver ultrasound showed small ascites, liver was homogeneous no focal mass. Pancreatic mass is not seen on ultrasound. This was reported as an addendum on the last CT of the abdomen, apparently this was not addressed by gastroenterology and by general surgery on the case, I went back to the old report of the CT of the abdomen which was done on 06/07/2016, there was a mention of a cystic focus associated with the pancreas measuring 3.5 cm and at that time it was reported to be smaller in size compared to January of 2016. Reevaluated today on 12/25/2016, patient is feeling much better clinically, chest x-ray is suggestive of mild congestive heart failure with bilateral pleural effusions, liver enzymes seem to be improving and as per GI these were felt to be related to hypoperfusion of state. Patient's cultures are negative from the biliary drainage tube. Patient is requesting to eat, and I will start him today on full liquid diet. Still no mention of the pancreatic mass that was mentioned on the CT of the abdomen, I would like to take that up with the surgery staff and GI staff on the case. Considering his abnormal chest x-ray today, I recommended one dose of Lasix to be given 40 mg IV push 1. Objective - Vital Signs Vital signs: Vital Signs Temp 96.7 F L 12/25/16 08:00 Pulse 81 12/25/16 11:57 Resp 24 04/11/17 11:30 BP 128/67 12/25/16 11:30 Pulse Ox 97 12/25/16 11:30 Intake & Output 12/24/16 12/25/16 12/25/16 18:59 06:59 18:59 Intake Total 1034.026 850 400 Output Total 307 505 555 Balance 727.026 345 -155 Weight 75.7 kg 78.2 kg 78.2 kg Intake: IV 525 850 250 Dextrose 5% in Water 1, 525 000 ml @ 75 mls/hr IV . [id number] LOPEZ with Sodium Bicarb (1 Meq/ml) 150 ml Rx#:[id number] Sodium Chloride 0.9% 1, 850 250 000 ml @ 100 mls/hr IV . Q10H LOPEZ Rx#:[id number] Intake, IV Titration 509.026 150 Amount Heparin Sodium,Porcine/ 209.026 D5w Pmx 25,000 unit In Dextrose/Water 1 500ml. bag @ 12 UNITS/KG/HR 17. 09 mls/hr IV .Q24H LOPEZ Rx #:[id number] Meropenem 1 gm In Sodium 100 100 Chloride 0.9% 100 ml @ 200 mls/hr IVPB Q12HR LOPEZ Rx#:[id number] Sodium Chloride 0.9% 1, 200 50 000 ml @ 100 mls/hr IV . Q10H LOPEZ Rx#:[id number] Output: Drainage 27 90 60 Right Lateral Side 27 90 60 Biliary Drain Urine 280 415 495 Other: Voiding Method Indwelling Catheter Indwelling Catheter Indwelling Catheter - Exam Head exam was generally normal. There was no scleral icterus or corneal arcus. Mucous membranes were moist.Neck was supple and without jugular venous distension, thyromegaly, or carotid bruits. Carotids were easily palpable bilaterally. There was no adenopathy. Lung sounds are diminished bilaterally and there is diffuse extremity wheezes throughout the lung mcclellan and there is prolongation of expiratory phase of breathing. Heart sounds are irregular and there is frequent premature atrial beats, positive S1-S2 and there is no significant murmurs appreciated. Abdomen is soft and there is a cholecystostomy tube in the right upper quadrant area. Minimal right upper quadrant direct tenderness. No rebound and some guarding. Bowel sounds are hypoactive. Extremities are showing diminished pulses and there is no cyanosis or clubbing. Neurologically the patient is awaiting alert and there is no focal neurological deficits. - Labs CBC & Chem 7: 12/25/16 04:35 12/25/16 04:35 Labs: Abnormal Lab Results - Last 24 Hours (Table) 12/24/16 12/25/16 12/25/16 Range/Units 19:22 04:35 04:35 WBC 10.8 H (3.8-10.6) k/uL RDW 15.7 H (11.5-15.5) % Plt Count 98 L (150-450) k/uL Neutrophils # 8.3 H (1.3-7.7) k/uL APTT 49.3 H (22.0-30.0) sec BUN 65 H (9-20) mg/dL Creatinine 2.00 H (0.66-1.25) mg/dL Calcium 7.3 L (8.4-10.2) mg/dL Total Bilirubin 1.5 H (0.2-1.3) mg/dL AST 1625 H (17-59) U/L ALT 2345 H (21-72) U/L Total Protein 6.0 L (6.3-8.2) g/dL Albumin 3.0 L (3.5-5.0) g/dL 12/25/16 Range/Units 04:35 WBC (3.8-10.6) k/uL RDW (11.5-15.5) % Plt Count (150-450) k/uL Neutrophils # (1.3-7.7) k/uL APTT 61.0 H (22.0-30.0) sec BUN (9-20) mg/dL Creatinine (0.66-1.25) mg/dL Calcium (8.4-10.2) mg/dL Total Bilirubin (0.2-1.3) mg/dL AST (17-59) U/L ALT (21-72) U/L Total Protein (6.3-8.2) g/dL Albumin (3.5-5.0) g/dL Microbiology - Last 24 Hours (Table) 12/23/16 15:45 Urine Culture - Final Urine,Catheterized 12/23/16 17:10 Gram Stain - Preliminary Aspirate Body Fluid Culture - Preliminary Assessment and Plan Plan: 1 sepsis likely secondary to an acute cholecystitis, status post percutaneous cholecystostomy tube drainage. The patient is currently being resuscitated IV fluids and the patient is covered with a combination of Levaquin and Flagyl. The bili fluid will be sent for Gram stain and culture. Gram stain so far is negative 2 hypotension currently on no pressors and the patient is being gently hydrated with IV fluids. Urine output is diminished at this point 3 acute kidney injury on top of chronic renal failure with a creatinine of 2.1 and secondary oligoria, rule out secondary to hypotension/sepsis 4 acute non-STEMI in the setting of hypotension and sepsis and EKG showing normal sinus rhythm with frequent PVCs and there is no ST segment elevation or depressions. 5 coronary artery disease with previous carotid bypass surgery 6 advanced COPD with chronic hypoxic and hypercapnic respiratory failure. The patient is a CO2 retainer and has compensated 3 metabolic alkalosis at baseline with a bicarb level of around 33 to 37 7 lactic acidosis secondary to sepsis. The patient has an anion gap metabolic acidosis at this point 8 lung cancer status post right bilobar resection for non-small cell lung cancer in 1999 9 abdominal aortic aneurysm repaired surgically 10 carotid endarterectomy for carotid artery disease 11 dementia 12 hyperlipidemia 13 hypertension 14 diverticular disease 15 diarrhea with a negative C. 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 This will have to be addressed again by surgery and gastroenterology on the case. 17 chronic congestive heart failure with bilateral pleural effusions, hence patient will be given a gentle diuresis today. Recommendation: Continue present treatment plan, continue antibiotics, monitor liver enzymes, lactic acid, electrolytes, and renal profile. patient will remain in the ICU today, and if he continues to do well I may transfer him out of the ICU tomorrow. Time with Patient: Less than 30
--- NOTE | 2016-12-25 15:05 | P.PN ---
Progress Note - Text The patient had initially been seen due to presumed acute cholecystitis. He had elevated liver function tests and some gallbladder wall thickening. He was hemodynamically unstable so underwent a cholecystostomy tube placement. Gram stain of the bile did not show any WBCs or organisms. He subsequently underwent a revascularization yesterday. The bile appears unremarkable. The liver function tests are down somewhat. Assessment: Elevated liver function tests likely due to ischemic event. No evidence of acute cholecystitis. Accommodation: Patient's nonsurgical. Recommend continuation of the cholecystostomy tube for 3-4 weeks to allow the to mature then it can be removed. Will follow-up on a when necessary basis.
[2016-12-26 00:39] LABS: Calcium 7.3 mg/dL (8.4-10.2); Magnesium 1.9 mg/dL (1.6-2.3); Potassium 3.5 mmol/L (3.5-5.1)
[2016-12-26] MEDS ORDERED: Potassium Replacement Protocol 1 EACH MISC MISCELLANE PRN (00:51)
[2016-12-26] MEDS ORDERED: Magnesium Replacement Protocol 1 EACH MISC MISCELLANE PRN (00:52)
[2016-12-26] MEDS: POTASSIUM CHLORIDE 10 MEQ, LIDOCAINE 2% INJ 10 MG in SODIUM CHLORIDE 0.9% 100 ML IV SCH ×2 (01:32→02:57)
[2016-12-26] MEDS: MAGNESIUM SULFATE-D5W PMX 1 GM in DEXTROSE/WATER 1 100ML.BAG IVPB SCH ×2 (01:34→02:57)
[2016-12-26] MEDS: SODIUM CHLORIDE 0.9% 1,000 ML IV SCH ×3 (01:36→12:12)
[2016-12-26] MEDS ORDERED: DEXTROSE 5% IN WATER 100 ML with AMIODARONE 150 MG IV ONE (03:52)
[2016-12-26] MEDS ORDERED: AMIODARONE 450 MG in DEXTROSE 5% IN WATER 250 ML IV SCH ×2 (04:00)
[2016-12-26] MEDS ORDERED: FUROSEMIDE 10 MG/ML 4 ML VIAL IV ONE (04:04)
[2016-12-26 04:13] LABS: ABG Base Excess -1.2 mmol/L; ABG HCO3 28 mmol/L (21-25); ABG PCO2 91 mmHg (35-45); ABG PH 7.11 (7.35-7.45); ABG PO2 125 mmHg (83-108); ABG TCO2 30 mmol/L (19-24)
[2016-12-26 04:59] LABS: Anisocytosis Slight; Basophils # (A) 0.1 k/uL (0-0.2); Basophils % (A) 1 %; CH 28.7; CHCM 29.8; Eosinophils % (A) 0 %; HCT 48.6 % (39.0-53.0); HDW 2.48; HGB 15.2 gm/dL (13.0-17.5); Hypochromasia Marked; Luc # (Auto) 0.31; Luc % (Auto) 3; Lymphocytes # (A) 1.5 k/uL (1.0-4.8); Lymphocytes % (A) 14 %; MCH 30.3 pg (25.0-35.0); MCHC 31.4 g/dL (31.0-37.0); MCV 96.8 fL (80.0-100.0); Mean Platelet Volume 9.1; Monocytes # (A) 0.8 k/uL (0-1.0); Monocytes % (A) 7 %; Neutrophils % (A) 75 %; RBC 5.02 m/uL (4.30-5.90); RDW 16.1 % (11.5-15.5); WBC 10.6 k/uL (3.8-10.6); WBC (Perox) 10.77
[2016-12-26 05:24] LABS: Calcium 7.4 mg/dL (8.4-10.2); Total Bilirubin 1.6 mg/dL (0.2-1.3); Total Protein 6.5 g/dL (6.3-8.2)
--- NOTE | 2016-12-26 07:36 | XR ---
EXAMINATION TYPE: XR chest 1V DATE OF EXAM: 12/26/2016 6:45 AM COMPARISON: 12/25/2016 HISTORY: Shortness of breath TECHNIQUE: Single frontal view of the chest is obtained. FINDINGS: Bilateral infiltrate and pleural effusion stable. The heart is enlarged and there is posto perative change. Underlying COPD noted. Arthropathy of the shoulders. Prominence of the right hilum s table. IMPRESSION: 1. Stable x-ray demonstrates bilateral infiltrate and pleural effusion underlying CHF not excluded.
[2016-12-26] MEDS: BUDESONIDE 0.5 MG/2 ML NEBU INHALATION SCH ×2 (08:26→21:07)
[2016-12-26] MEDS: FORMOTEROL FUMARATE 20 MCG/2 ML NEBU INHALATION SCH ×2 (08:26→21:07)
[2016-12-26] MEDS: LEVALBUTEROL NEB (CONC) 1.25 MG/0.5 ML AMP INHALATION SCH ×4 (08:26→21:07)
[2016-12-26] MEDS: IPRATROPIUM 0.5 MG/2.5 ML NEBU INHALATION SCH ×4 (08:26→21:07)
[2016-12-26] MEDS: FUROSEMIDE 10 MG/ML 4 ML VIAL IV SCH ×2 (08:54→20:46)
[2016-12-26] MEDS: METOPROLOL TARTRATE 12.5 MG TAB PO SCH ×2 (08:54→20:46)
[2016-12-26] MEDS: DONEPEZIL 10 MG TAB PO SCH ×2 (08:55→20:46)
[2016-12-26] MEDS: hydrALAZINE HCL 25 MG TAB PO SCH ×2 (08:55→20:46)
[2016-12-26] MEDS: ESCITALOPRAM 10 MG TAB PO SCH (08:56)
[2016-12-26] MEDS: MEROPENEM 1 GM in SODIUM CHLORIDE 0.9% 100 ML IVPB SCH ×2 (08:57→21:24)
[2016-12-26] MEDS ORDERED: FUROSEMIDE 20 MG TAB PO SCH (09:00)
--- NOTE | 2016-12-26 09:11 | PN ---
Mr. Pereira is doing much better today. He appears less toxic, comfortable. His troponins have come down. Hemodynamically stable, not in overt heart failure. Vital signs are stable. S1, S2 heard normally. Short systolic murmur noted. Lungs revealed improved air entry. Abdomen and Lower extremity exam is unchanged. Plan is to continue current medications. No intervention. I will continue to see him as needed from a cardiac standpoint.
[2016-12-26 09:23] LABS: Magnesium 2.4 mg/dL (1.6-2.3); Phosphorous 4.9 mg/dL (2.5-4.5)
--- NOTE | 2016-12-26 10:22 | P.PN ---
Subjective Principal diagnosis: Acute sepsis secondary to acute cholecystitis. This is an 81-year-old male patient with advanced COPD, coronary artery disease , chronic hypoxic hypercapnic respiratory failure in addition to multiple other medical positive comorbidities with a baseline chronic renal failure, came into the emergency department with generalized weakness fatigue, nausea, and frequent bouts of diarrhea that was going on over the past 2-3 days. Yesterday for example the patient had at least 7-10 bouts of liquidy bowel movements. The patient came into the emergency department and he was tachycardic and hypotensive and his initial blood pressure was 80/64. He was given 500 mL of IV fluids to stabilize his blood pressure. He was having some vague diffuse abdominal pain more so on the right upper quadrant area. He had no chest pain. He was a mild degree of respiratory distress note that he has been chronically dyspneic related to his COPD. The patient was found to have significant abnormalities in his blood work. Specifically, he was found to have leukocytosis with a WBC count of 15.6, he was acidotic with a pH of 7.28, he was in acute on top of chronic renal failure knowing that his baseline creatinine is around 1.5 and his current creatinine is up to 2.1 and he was oliguric and he had obvious signs of diminished urine output. His lactic acid level was at 5.3 and the patient's troponin peaked at 5.3. His proBNP was more than 90,000. His chest x-ray showed thyromegaly and pulmonary vascular congestion and small bilateral pleural effusions. I discussed the case with emergency department physician. I also noted that the patient's liver function tests were quite abnormal with an AST of 961 and ALP of 761 and normal alkaline phosphatase and bilirubin. Nevertheless the ultrasound of the abdomen that was done in the emergency department showed changes consistent with acute cholecystitis and gallbladder wall thickening and right kidney was atrophic with multi cysts and there was no evidence of hydronephrosis. The patient was started on examination of Levaquin and Flagyl. Surgical consultation was obtained. The patient obviously was not a good surgical candidate for any surgical intervention. At that point I contacted interventional radiology will proceed with a percutaneous drainage of the gallbladder. A total of 200 mL of fluid was aspirated and the fluid was sent for microbial cultures. At this point in time, patient is in the intensive care unit. His systolic blood pressures the mid 90s. No change in mental status. No chest pain. His chronic shortness of breath as mentioned. His urine output is diminished still. No chest pain. No significant abdominal pain. The cholecystostomy tube is in good location and is actively draining. Patient was reevaluated today on 12/24/2016, seems to be doing better clinically , hemodynamically stable, however his liver enzymes are taking a significant sharp rise. And the drainage from the biliary tube seems to be normal biliary drainage, does not seem to be purulent at all. Hence we'll recommend ultrasound of the liver, and possible GI consultation, I'm wondering of the patient will eventually need ERCP. Discussed his condition with the surgeon on the case, and she felt basically the same. Labs showed WBC count of 14.0 hemoglobin 14.8. Transaminases are elevated. BUN is 60 creatinine 2.36 lactic acid is 2.8 AST is 2310 ALT is 2171 alkaline phosphatase is 79 troponin is 3.510 liver ultrasound showed small ascites, liver was homogeneous no focal mass. Pancreatic mass is not seen on ultrasound. This was reported as an addendum on the last CT of the abdomen, apparently this was not addressed by gastroenterology and by general surgery on the case, I went back to the old report of the CT of the abdomen which was done on 06/07/2016, there was a mention of a cystic focus associated with the pancreas measuring 3.5 cm and at that time it was reported to be smaller in size compared to January of 2016. Reevaluated today on 12/25/2016, patient is feeling much better clinically, chest x-ray is suggestive of mild congestive heart failure with bilateral pleural effusions, liver enzymes seem to be improving and as per GI these were felt to be related to hypoperfusion of state. Patient's cultures are negative from the biliary drainage tube. Patient is requesting to eat, and I will start him today on full liquid diet. Still no mention of the pancreatic mass that was mentioned on the CT of the abdomen, I would like to take that up with the surgery staff and GI staff on the case. Considering his abnormal chest x-ray today, I recommended one dose of Lasix to be given 40 mg IV push 1. Reevaluated today on 12/26/2016, patient developed worsening of his pulmonary status last night, he required to be placed on BiPAP. He also developed worsening congestive heart failure based on the chest x-ray this morning, and he developed cardiac arrhythmia in the form of ventricular tachycardia nonsustained, and he was placed on amiodarone drip. He is presently on amiodarone drip. Off BiPAP, and before placement on BiPAP his pCO2 was as high as 90, and his pH was 7.11. PO2 was 125 at the time. And this was on 100% nonrebreather mask. Labs today were reviewed basic metabolic profile is normal BUN is 58 creatinine is 1.47 slightly improved compared to baseline. CBC is relatively unremarkable. Patient tells me today that he is feeling much better , and after reviewing the chest x-ray I recommended more diuretics in the form of Lasix 40 mg IV push every 12 hours. Objective - Vital Signs Vital signs: Vital Signs Temp 97.5 F L 12/26/16 08:00 Pulse 71 12/26/16 09:00 Resp 23 12/26/16 09:00 BP 109/57 12/26/16 09:00 Pulse Ox 98 12/26/16 09:00 Intake & Output 12/25/16 12/26/16 12/26/16 18:59 06:59 18:59 Intake Total 1520 1300 200 Output Total 1895 590 150 Balance -375 710 50 Weight 78.2 kg 79.5 kg Intake: IV 550 1200 Dextrose 5% in Water 100 300 ml @ 618 mls/hr IV .Q10M ONE with Amiodarone 150 mg Rx#:[id number] Magnesium Sulfate-D5w Pmx 200 1 gm In Dextrose/Water 1 100ml.bag @ 100 mls/hr IVPB Q1H LOPEZ Rx#: [id number] Potassium Chloride 10 meq 200 Lidocaine 2% Inj 10 mg In Sodium Chloride 0.9% 100 ml @ 100 mls/hr IV Q1HR LOPEZ Rx#:[id number] Sodium Chloride 0.9% 1, 550 500 000 ml @ 50 mls/hr IV . Q20H LOPEZ Rx#:[id number] Intake, IV Titration 250 100 200 Amount Meropenem 1 gm In Sodium 100 100 100 Chloride 0.9% 100 ml @ 200 mls/hr IVPB Q12HR LOPEZ Rx#:[id number] Sodium Chloride 0.9% 1, 150 100 000 ml @ 50 mls/hr IV . Q20H LOPEZ Rx#:[id number] Oral 720 Output: Drainage 330 Right Lateral Side 330 Biliary Drain Urine 1565 590 150 Other: Voiding Method Indwelling Catheter Indwelling Catheter - Exam Head exam was generally normal. There was no scleral icterus or corneal arcus. Mucous membranes were moist.Neck was supple and without jugular venous distension, thyromegaly, or carotid bruits. Carotids were easily palpable bilaterally. There was no adenopathy. Lung sounds are diminished bilaterally and there is diffuse extremity wheezes throughout the lung mcclellan and there is prolongation of expiratory phase of breathing. Heart sounds are irregular and there is frequent premature atrial beats, positive S1-S2 and there is no significant murmurs appreciated. Abdomen is soft and there is a cholecystostomy tube in the right upper quadrant area. Minimal right upper quadrant direct tenderness. No rebound and some guarding. Bowel sounds are hypoactive. Extremities are showing diminished pulses and there is no cyanosis or clubbing. Neurologically the patient is awaiting alert and there is no focal neurological deficits. - Labs CBC & Chem 7: 12/26/16 04:18 12/26/16 04:18 Labs: Abnormal Lab Results - Last 24 Hours (Table) 12/26/16 12/26/16 12/26/16 Range/Units 00:10 03:53 04:18 RDW (11.5-15.5) % Plt Count (150-450) k/uL Neutrophils # (1.3-7.7) k/uL APTT (22.0-30.0) sec ABG pH 7.11 L* (7.35-7.45) ABG pCO2 91 H* (35-45) mmHg ABG pO2 125 H (83-108) mmHg ABG HCO3 28 H (21-25) mmol/L ABG Total CO2 30 H (19-24) mmol/L BUN 59 H 58 H (9-20) mg/dL Creatinine 1.50 H 1.47 H (0.66-1.25) mg/dL Glucose 109 H 174 H (74-99) mg/dL Calcium 7.3 L 7.4 L (8.4-10.2) mg/dL Phosphorus (2.5-4.5) mg/dL Magnesium (1.6-2.3) mg/dL Total Bilirubin 1.6 H (0.2-1.3) mg/dL AST 735 H (17-59) U/L ALT 1624 H (21-72) U/L Albumin 3.2 L (3.5-5.0) g/dL 12/26/16 12/26/16 12/26/16 Range/Units 04:18 08:38 08:38 RDW 16.1 H (11.5-15.5) % Plt Count 109 L (150-450) k/uL Neutrophils # 8.0 H (1.3-7.7) k/uL APTT 65.1 H (22.0-30.0) sec ABG pH (7.35-7.45) ABG pCO2 (35-45) mmHg ABG pO2 (83-108) mmHg ABG HCO3 (21-25) mmol/L ABG Total CO2 (19-24) mmol/L BUN (9-20) mg/dL Creatinine (0.66-1.25) mg/dL Glucose (74-99) mg/dL Calcium (8.4-10.2) mg/dL Phosphorus 4.9 H (2.5-4.5) mg/dL Magnesium 2.4 H (1.6-2.3) mg/dL Total Bilirubin (0.2-1.3) mg/dL AST (17-59) U/L ALT (21-72) U/L Albumin (3.5-5.0) g/dL Microbiology - Last 24 Hours (Table) 12/23/16 17:10 Gram Stain - Preliminary Aspirate Body Fluid Culture - Preliminary Assessment and Plan Plan: 1 sepsis likely secondary to an acute cholecystitis, status post percutaneous cholecystostomy tube drainage. The patient is currently being resuscitated IV fluids and the patient is covered with a combination of Levaquin and Flagyl. Cultures from the biliary fluid are negative. 2 hypotension currently on no pressors and the patient is being gently hydrated with IV fluids. Urine output is diminished at this point 3 acute kidney injury on top of chronic renal failure with a creatinine of 2.1 and secondary oligoria, rule out secondary to hypotension/sepsis, improving, creatinine is better today. On 12/26/2016. 4 acute non-STEMI in the setting of hypotension and sepsis and EKG showing normal sinus rhythm with frequent PVCs and there is no ST segment elevation or depressions. 5 coronary artery disease with previous carotid bypass surgery 6 advanced COPD with chronic hypoxic and hypercapnic respiratory failure. The patient is a CO2 retainer and has compensated 3 metabolic alkalosis at baseline with a bicarb level of around 33 to 37 7 lactic acidosis secondary to sepsis. The patient has an anion gap metabolic acidosis at this point 8 lung cancer status post right bilobar resection for non-small cell lung cancer in 1999 9 abdominal aortic aneurysm repaired surgically 10 carotid endarterectomy for carotid artery disease 11 dementia 12 hyperlipidemia 13 hypertension 14 diverticular disease 15 diarrhea with a negative C. 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 This will have to be addressed again by surgery and gastroenterology on the case. 17 chronic congestive heart failure with bilateral pleural effusions, hence patient will be given a gentle diuresis today. 18 recurrent episodes of hypercapnic respiratory failure secondary to underlying COPD requiring BiPAP intermittently. Recommendation: Continue present treatment plan, continue antibiotics, all his labs including his CBC, electrolytes, renal profile, liver profile, are all showing improvement. Patient will likely be kept in the ICU today considering he is on amiodarone drip. And considering his issues last night. Time with Patient: Less than 30
--- NOTE | 2016-12-26 11:59 | PN ---
DATE OF SERVICE: 12/26/2016 Patient is an 81-year-old pleasant white male admitted to the hospital with severe sepsis secondary to possible acute cholecystitis. He underwent a cholecystostomy tube placement 2 days ago and presently on broad-spectrum antibiotics. He was also noted to have elevated troponins and Cardiology has been following the patient closely. While in the hospital, he was noted to have elevated serum transaminases probably related to ischemic hepatitis because of prolonged hypertension and hence we are consulted in regards to this issue. The patient is doing much better. He denies any symptoms this morning. He reports no abdominal pain. He denies any nausea or vomiting. On physical examination, he appears comfortable on 100% nonrebreather, doing well. Vital signs are stable. Blood pressure is 109/57, pulse rate 71, temperature 98.3, afebrile. HEENT examination unremarkable. Conjunctivae pink. Sclerae nonicteric. Oral cavity, no lesions. NECK: No JVD or lymph node enlargement. Chest was clear to auscultation. HEART: Regular rate and rhythm. Abdomen is soft, cystostomy tube in place and there was about 30 mL of bile noted in the tube. The rest of the abdomen was benign. Bowel sounds are positive. No organomegaly. EXTREMITIES: No pedal edema. SKIN: No rashes. NEURO: Alert and oriented x3. No focal deficits. Labs from today, WBC is 10.6, hemoglobin 15.2, platelets of 109, AST is down to 735, ALT is down 1624, T-bili is 1.6 and alkaline phosphatase is 99; pH is 7.11, pCO2 of 91, pO2 is 125, troponin was 3.5 yesterday. IMPRESSION: Elevated serum transaminases, most likely related to acute ischemic hepatitis which are gradually improving. Doubt we are dealing with any biliary obstruction. Patient is status post cholecystostomy tube placement for possible acute cholecystitis 2 days ago and presently on broad-spectrum antibiotics and overall clinical condition is improving. Dr. Chang from Surgery is following the patient closely. RECOMMENDATIONS: 1. Repeat LFTs in the morning. 2. Start him on a clear liquid diet and advance as tolerated. 3. Will follow him closely during his hospital stay.
[2016-12-26] MEDS: HEPARIN SODIUM,PORCINE/D5W PMX 25,000 UNIT in DEXTROSE/WATER 1 500ML.BAG IV SCH (12:03)
--- NOTE | 2016-12-26 12:29 | P.PN ---
Subjective Patient had episode of low respiratory failure last night was placed on BiPAP has recovered. Patient tolerating being out of bed at bedside chair. Nods off frequently. Continues with rhonchi scattered through lung mcclellan Objective - Vital Signs Vital signs: Vital Signs Temp 97.5 F L 12/26/16 08:00 Pulse 63 12/26/16 12:00 Resp 27 H 12/26/16 12:00 BP 107/52 12/26/16 12:00 Pulse Ox 96 12/26/16 12:00 Intake & Output 12/25/16 12/26/16 12/26/16 18:59 06:59 18:59 Intake Total 2020 1300 290 Output Total 1895 590 450 Balance 125 710 -160 Weight 78.2 kg 79.5 kg Intake: IV 550 1200 90 Dextrose 5% in Water 100 300 ml @ 618 mls/hr IV .Q10M ONE with Amiodarone 150 mg Rx#:[id number] Magnesium Sulfate-D5w Pmx 200 1 gm In Dextrose/Water 1 100ml.bag @ 100 mls/hr IVPB Q1H [facility] Rx#: [id number] Potassium Chloride 10 meq 200 Lidocaine 2% Inj 10 mg In Sodium Chloride 0.9% 100 ml @ 100 mls/hr IV Q1HR [facility] Rx#:[id number] Sodium Chloride 0.9% 1, 550 500 90 000 ml @ 30 mls/hr IV . Q24H [facility] Rx#:[id number] Intake, IV Titration 750 100 200 Amount Heparin Sodium,Porcine/ 500 D5w Pmx 25,000 unit In Dextrose/Water 1 500ml. bag @ 12 UNITS/KG/HR 17. 09 mls/hr IV .Q24H [facility] Rx #:[id number] Meropenem 1 gm In Sodium 100 100 100 Chloride 0.9% 100 ml @ 200 mls/hr IVPB Q12HR [facility] Rx#:[id number] Sodium Chloride 0.9% 1, 150 100 000 ml @ 30 mls/hr IV . Q24H [facility] Rx#:[id number] Oral 720 Output: Drainage 330 Right Lateral Side 330 Biliary Drain Urine 1565 590 450 Other: Voiding Method Indwelling Catheter Indwelling Catheter - Constitutional General appearance: Present: obese - EENT Eyes: Present: PERRLA Ears: bilateral: normal - Neck Neck: Present: normal ROM - Respiratory Respiratory: bilateral: rhonchi - Cardiovascular Rhythm: regular - Gastrointestinal Gastrointestinal Comment(s): Cholecystotomy-tube in place noted green bile drainage General gastrointestinal: Present: soft - Integumentary Integumentary: Present: normal - Neurologic Neurologic: Present: CNII-XII intact - Musculoskeletal Musculoskeletal: Present: generalized weakness - Psychiatric Psychiatric: Present: appropriate affect, intact judgment & insight - Labs CBC & Chem 7: 12/26/16 04:18 12/26/16 04:18 Labs: Abnormal Lab Results - Last 24 Hours (Table) 12/26/16 12/26/16 12/26/16 Range/Units 00:10 03:53 04:18 RDW (11.5-15.5) % Plt Count (150-450) k/uL Neutrophils # (1.3-7.7) k/uL APTT (22.0-30.0) sec ABG pH 7.11 L* (7.35-7.45) ABG pCO2 91 H* (35-45) mmHg ABG pO2 125 H (83-108) mmHg ABG HCO3 28 H (21-25) mmol/L ABG Total CO2 30 H (19-24) mmol/L BUN 59 H 58 H (9-20) mg/dL Creatinine 1.50 H 1.47 H (0.66-1.25) mg/dL Glucose 109 H 174 H (74-99) mg/dL Calcium 7.3 L 7.4 L (8.4-10.2) mg/dL Phosphorus (2.5-4.5) mg/dL Magnesium (1.6-2.3) mg/dL Total Bilirubin 1.6 H (0.2-1.3) mg/dL AST 735 H (17-59) U/L ALT 1624 H (21-72) U/L Albumin 3.2 L (3.5-5.0) g/dL 12/26/16 12/26/16 12/26/16 Range/Units 04:18 08:38 08:38 RDW 16.1 H (11.5-15.5) % Plt Count 109 L (150-450) k/uL Neutrophils # 8.0 H (1.3-7.7) k/uL APTT 65.1 H (22.0-30.0) sec ABG pH (7.35-7.45) ABG pCO2 (35-45) mmHg ABG pO2 (83-108) mmHg ABG HCO3 (21-25) mmol/L ABG Total CO2 (19-24) mmol/L BUN (9-20) mg/dL Creatinine (0.66-1.25) mg/dL Glucose (74-99) mg/dL Calcium (8.4-10.2) mg/dL Phosphorus 4.9 H (2.5-4.5) mg/dL Magnesium 2.4 H (1.6-2.3) mg/dL Total Bilirubin (0.2-1.3) mg/dL AST (17-59) U/L ALT (21-72) U/L Albumin (3.5-5.0) g/dL Microbiology - Last 24 Hours (Table) 12/23/16 17:10 Gram Stain - Preliminary Aspirate Body Fluid Culture - Preliminary - Imaging and Cardiology Chest x-ray: report reviewed Assessment and Plan Plan: Assessment Severe sepsis with hypoperfusion hypotension septic shock Possible cholecystitis post cholecystotomy tube NH non-ST segment elevation with elevated troponins COPD Elevated liver enzymes related to hypotension Increased creatinine acute renal failure secondary to hypotension Hyperkalemia secondary to renal failure Acute metabolic acidosis History of asthma/COPD History of coronary disease with bypass history Hypertension Hyperlipidemia History of chronic hypoxic respiratory failure History of lung cancer non-small cell type Congestive heart failure chronic diastolic dysfunction ejection fraction 50-55% Moderate pulmonary hypertension History of abdominal aortic aneurysm repair Plan Continue consultation with surgery Pulmonology Cardiology Continues in ICU
--- NOTE | 2016-12-26 13:58 | PN ---
Patient is seen for followup for acute kidney injury secondary to sepsis, hypotension, hypoperfusion. His renal function is slowly improving. He was maintained on IV fluids, which were decreased yesterday and they will be discontinued today, as there was evidence of mild volume overload. Patient received one dose of Lasix yesterday and he started on 40 mg IV b.i.d. today. He is being seen for acute cholecystitis and has cholecystostomy tube and is being followed by Surgery. On examination, blood pressure is 107/52, heart rate 60 beats per minute. He is afebrile. Examination of the heart, S1 and S2. Examination of lungs, bilateral breath sounds are heard. Abdomen is soft, nontender. Examination of lower extremities shows no significant edema. LPN OR MEDICAL ASSISTANT exam is grossly intact. Patient is moving all 4 extremities. Labs reveal sodium of 138, potassium 4.0, chloride 100, BUN 58, serum creatinine 1.47, AST is down to 735, ALT down to 1624 for now from 2345 yesterday. ASSESSMENT: 1. Acute kidney injury, acute tubular necrosis, nonoliguric, currently on 50 mL an hour of normal saline and started on Lasix as patient had CO2 retention and respiratory acidosis and had been on BiPAP yesterday. There was evidence of mild volume overload and Lasix 40 mg IV b.i.d. has been started. I will discontinue the saline. 2. Acute cholecystitis with cholecystostomy tube. Maintained on antibiotics with no further surgical intervention planned at this time. 3. Acute non-ST elevation myocardial infarction followed by Cardiology. 4. History of lung cancer, status post right bilobar resection for non-small cell cancer in 1999. 5. Respiratory acidosis, currently improved with BiPAP. 6. Shocked liver, currently improving liver enzymes. PLAN: DC normal saline. May continue with Lasix. Repeat labs in the a.m. Continue to avoid nephrotoxic agents.
[2016-12-26] MEDS: DEXTROSE 5% IN WATER 1,000 ML with SODIUM BICARB (1 MEQ/ML) 150 ML IV SCH (17:19)
--- NOTE | 2016-12-26 22:11 | PN ---
This gentleman came with cholecystitis; had also a T-tube placed with biliary drainage. He is doing better, clinically improved. He is still in a sinus mechanism with PACs, short runs of ventricular ectopy. I am recommending that we discontinue Cordarone, continue beta neelam. Vital signs are stable. S1, S2 heard normally. Short systolic murmur noted. Lungs reveal decent air entry. Rest of physical exam is unchanged. Plan is to discontinue Cordarone, increase activity, and move him to Telemetry.
[2016-12-27 06:50] LABS: Anisocytosis Slight; Basophils % (A) 0 %; CH 29.5; CHCM 30.3; Eosinophils # (A) 0.1 k/uL (0-0.7); Eosinophils % (A) 1 %; HCT 45.8 % (39.0-53.0); HDW 2.51; HGB 13.8 gm/dL (13.0-17.5); Hypochromasia Moderate; Luc # (Auto) 0.27; Luc % (Auto) 4; Lymphocytes # (A) 1.4 k/uL (1.0-4.8); Lymphocytes % (A) 18 %; MCH 29.6 pg (25.0-35.0); MCHC 30.2 g/dL (31.0-37.0); MCV 98.2 fL (80.0-100.0); Macrocytosis Slight; Mean Platelet Volume 9.7; Monocytes # (A) 0.7 k/uL (0-1.0); Monocytes % (A) 9 %; Neutrophils % (A) 68 %; RBC 4.67 m/uL (4.30-5.90); RDW 16.7 % (11.5-15.5); WBC 7.5 k/uL (3.8-10.6)
[2016-12-27 07:23] LABS: AST 387 U/L (17-59); Alkaline Phosphatase 88 U/L (38-126); Anion Gap 10 mmol/L; Blood Urea Nitrogen 53 mg/dL (9-20); Calcium 7.5 mg/dL (8.4-10.2); Carbon Dioxide 30 mmol/L (22-30); Chloride 99 mmol/L (98-107); Glucose 99 mg/dL (74-99); Non-African American GFR(MDRD) 55 (>60 ml/min/1.73 sqM); Potassium 3.8 mmol/L (3.5-5.1); Sodium 139 mmol/L (137-145)
[2016-12-27 07:30] LABS: ALT 1110 U/L (21-72)
[2016-12-27 07:48] LABS: Manual Review Performed
[2016-12-27] MEDS: LEVALBUTEROL NEB (CONC) 1.25 MG/0.5 ML AMP INHALATION SCH ×4 (09:25→20:11)
[2016-12-27] MEDS: IPRATROPIUM 0.5 MG/2.5 ML NEBU INHALATION SCH ×4 (09:25→20:11)
[2016-12-27] MEDS: BUDESONIDE 0.5 MG/2 ML NEBU INHALATION SCH ×2 (09:25→20:11)
[2016-12-27] MEDS: FORMOTEROL FUMARATE 20 MCG/2 ML NEBU INHALATION SCH ×2 (09:25→20:12)
[2016-12-27] MEDS: ESCITALOPRAM 10 MG TAB PO SCH (10:15)
[2016-12-27] MEDS: FUROSEMIDE 10 MG/ML 4 ML VIAL IV SCH ×2 (10:15→20:42)
[2016-12-27] MEDS: DONEPEZIL 10 MG TAB PO SCH ×2 (10:15→20:42)
[2016-12-27] MEDS: hydrALAZINE HCL 25 MG TAB PO SCH ×2 (10:16→20:42)
[2016-12-27] MEDS: METOPROLOL TARTRATE 12.5 MG TAB PO SCH ×2 (10:16→20:43)
[2016-12-27] MEDS: PANTOPRAZOLE 40 MG/10 ML VIAL IVP SCH (10:16)
[2016-12-27] MEDS: MEROPENEM 1 GM in SODIUM CHLORIDE 0.9% 100 ML IVPB SCH ×2 (10:39→20:42)
--- NOTE | 2016-12-27 11:21 | P.PN ---
Subjective Principal diagnosis: patient has been on transferred from the intensive care to stepdown unit. Patient sitting at side of chair noted to be dyspneic. Noted to have stable night. Continues with diarrhea stools Objective - Vital Signs Vital signs: Vital Signs Temp 95.9 F L 12/27/16 08:00 Pulse 58 L 12/27/16 09:45 Resp 18 12/27/16 08:00 BP 123/59 12/27/16 08:00 Pulse Ox 93 L 12/27/16 08:00 Intake & Output 12/26/16 12/27/16 12/27/16 18:59 06:59 18:59 Intake Total 440 600 180 Output Total 775 175 Balance -335 425 180 Intake: IV 240 600 Heparin Sodium,Porcine/ 240 D5w Pmx 25,000 unit In Dextrose/Water 1 500ml. bag @ 12 UNITS/KG/HR 17. 09 mls/hr IV .Q24H [facility] Rx #:[id number] Sodium Chloride 0.9% 1, 240 360 000 ml @ 30 mls/hr IV . Q24H [facility] Rx#:[id number] Intake, IV Titration 200 Amount Meropenem 1 gm In Sodium 100 Chloride 0.9% 100 ml @ 200 mls/hr IVPB Q12HR [facility] Rx#:[id number] Sodium Chloride 0.9% 1, 100 000 ml @ 30 mls/hr IV . Q24H [facility] Rx#:[id number] Oral 180 Output: Drainage 175 Right Lateral Side 175 Biliary Drain Urine 775 Other: Voiding Method Indwelling Catheter Urinal Urinal # Voids 2 - Constitutional General appearance: Present: obese - EENT Eyes: Present: PERRLA Ears: bilateral: normal - Neck Neck: Present: normal ROM - Respiratory Respiratory: bilateral: diminished, rhonchi - Cardiovascular Rhythm: regular - Gastrointestinal General gastrointestinal: Present: soft - Integumentary Integumentary: Present: normal - Neurologic Neurologic: Present: CNII-XII intact - Musculoskeletal Musculoskeletal: Present: generalized weakness - Psychiatric Psychiatric: Present: A&O x's 3, appropriate affect, intact judgment & insight - Labs CBC & Chem 7: 12/27/16 06:26 12/27/16 06:26 Labs: Abnormal Lab Results - Last 24 Hours (Table) 12/27/16 12/27/16 12/27/16 Range/Units 06:26 06:26 06:26 MCHC 30.2 L (31.0-37.0) g/dL RDW 16.7 H (11.5-15.5) % Plt Count 92 L (150-450) k/uL APTT 58.1 H (22.0-30.0) sec BUN 53 H (9-20) mg/dL Calcium 7.5 L (8.4-10.2) mg/dL Total Bilirubin 2.0 H (0.2-1.3) mg/dL AST 387 H (17-59) U/L ALT 1110 H (21-72) U/L Total Protein 6.0 L (6.3-8.2) g/dL Albumin 2.9 L (3.5-5.0) g/dL Microbiology - Last 24 Hours (Table) 12/23/16 17:10 Gram Stain - Preliminary Aspirate Body Fluid Culture - Preliminary Assessment and Plan Plan: assessment Acute cholecystitis with severe sepsis hypertension hyper profusion post cholecystotomy tube Acute non-ST segment elevation WA with increase in troponin Acute on chronic COPD Elevated lactic acid secondary to sepsis Increased bilirubin AST ALTs secondary to hypo-profusion Acute renal failure acute tubular necrosis secondary to hypo-profusion Hyperkalemia secondary to above Metabolic acidosis secondary to sepsisHistory of asthma History of coronary disease with bypass Hypertension Hyperlipidemia History of chronic hypoxic rest for a failure History of lung cancer non-small cell type Congestive heart failure chronic diastolic dysfunction ejection fraction 50-55% History of leg cellulitis History of moderate pulmonary hypertension Metabolic encephalopathy chronic History of abdominal aortic aneurysm repair Plan Continue consultation with Dr. Chang surgery Continue consultation with pulmonology and cardiology
--- NOTE | 2016-12-27 11:48 | P.PN ---
Subjective Principal diagnosis: Acute sepsis secondary to acute cholecystitis. This is an 81-year-old male patient with advanced COPD, coronary artery disease , chronic hypoxic hypercapnic respiratory failure in addition to multiple other medical positive comorbidities with a baseline chronic renal failure, came into the emergency department with generalized weakness fatigue, nausea, and frequent bouts of diarrhea that was going on over the past 2-3 days. Yesterday for example the patient had at least 7-10 bouts of liquidy bowel movements. The patient came into the emergency department and he was tachycardic and hypotensive and his initial blood pressure was 80/64. He was given 500 mL of IV fluids to stabilize his blood pressure. He was having some vague diffuse abdominal pain more so on the right upper quadrant area. He had no chest pain. He was a mild degree of respiratory distress note that he has been chronically dyspneic related to his COPD. The patient was found to have significant abnormalities in his blood work. Specifically, he was found to have leukocytosis with a WBC count of 15.6, he was acidotic with a pH of 7.28, he was in acute on top of chronic renal failure knowing that his baseline creatinine is around 1.5 and his current creatinine is up to 2.1 and he was oliguric and he had obvious signs of diminished urine output. His lactic acid level was at 5.3 and the patient's troponin peaked at 5.3. His proBNP was more than 90,000. His chest x-ray showed thyromegaly and pulmonary vascular congestion and small bilateral pleural effusions. I discussed the case with emergency department physician. I also noted that the patient's liver function tests were quite abnormal with an AST of 961 and ALP of 761 and normal alkaline phosphatase and bilirubin. Nevertheless the ultrasound of the abdomen that was done in the emergency department showed changes consistent with acute cholecystitis and gallbladder wall thickening and right kidney was atrophic with multi cysts and there was no evidence of hydronephrosis. The patient was started on examination of Levaquin and Flagyl. Surgical consultation was obtained. The patient obviously was not a good surgical candidate for any surgical intervention. At that point I contacted interventional radiology will proceed with a percutaneous drainage of the gallbladder. A total of 200 mL of fluid was aspirated and the fluid was sent for microbial cultures. At this point in time, patient is in the intensive care unit. His systolic blood pressures the mid 90s. No change in mental status. No chest pain. His chronic shortness of breath as mentioned. His urine output is diminished still. No chest pain. No significant abdominal pain. The cholecystostomy tube is in good location and is actively draining. Patient was reevaluated today on 12/24/2016, seems to be doing better clinically , hemodynamically stable, however his liver enzymes are taking a significant sharp rise. And the drainage from the biliary tube seems to be normal biliary drainage, does not seem to be purulent at all. Hence we'll recommend ultrasound of the liver, and possible GI consultation, I'm wondering of the patient will eventually need ERCP. Discussed his condition with the surgeon on the case, and she felt basically the same. Labs showed WBC count of 14.0 hemoglobin 14.8. Transaminases are elevated. BUN is 60 creatinine 2.36 lactic acid is 2.8 AST is 2310 ALT is 2171 alkaline phosphatase is 79 troponin is 3.510 liver ultrasound showed small ascites, liver was homogeneous no focal mass. Pancreatic mass is not seen on ultrasound. This was reported as an addendum on the last CT of the abdomen, apparently this was not addressed by gastroenterology and by general surgery on the case, I went back to the old report of the CT of the abdomen which was done on 06/07/2016, there was a mention of a cystic focus associated with the pancreas measuring 3.5 cm and at that time it was reported to be smaller in size compared to January of 2016. Reevaluated today on 12/25/2016, patient is feeling much better clinically, chest x-ray is suggestive of mild congestive heart failure with bilateral pleural effusions, liver enzymes seem to be improving and as per GI these were felt to be related to hypoperfusion of state. Patient's cultures are negative from the biliary drainage tube. Patient is requesting to eat, and I will start him today on full liquid diet. Still no mention of the pancreatic mass that was mentioned on the CT of the abdomen, I would like to take that up with the surgery staff and GI staff on the case. Considering his abnormal chest x-ray today, I recommended one dose of Lasix to be given 40 mg IV push 1. Reevaluated today on 12/26/2016, patient developed worsening of his pulmonary status last night, he required to be placed on BiPAP. He also developed worsening congestive heart failure based on the chest x-ray this morning, and he developed cardiac arrhythmia in the form of ventricular tachycardia nonsustained, and he was placed on amiodarone drip. He is presently on amiodarone drip. Off BiPAP, and before placement on BiPAP his pCO2 was as high as 90, and his pH was 7.11. PO2 was 125 at the time. And this was on 100% nonrebreather mask. Labs today were reviewed basic metabolic profile is normal BUN is 58 creatinine is 1.47 slightly improved compared to baseline. CBC is relatively unremarkable. Patient tells me today that he is feeling much better , and after reviewing the chest x-ray I recommended more diuretics in the form of Lasix 40 mg IV push every 12 hours. Patient was reevaluated today on 12/27/2016, seems to be doing much better, breathing a lot easier. Presently, no cough no wheezing no shortness of breath , continues to have his cholecystostomy tube in place, and a draining mostly bile. Cultures remained negative on the biliary drainage. No chest x-ray was done today, but clinically the patient is doing well from the pulmonary perspective. Remains on diuretics for intermittent episodes of congestive heart failure. Remains on bronchodilators for underlying COPD. Objective - Vital Signs Vital signs: Vital Signs Temp 96.6 F L 12/27/16 11:15 Pulse 61 12/27/16 11:15 Resp 20 12/27/16 11:15 BP 111/52 12/27/16 11:15 Pulse Ox 95 12/27/16 11:15 Intake & Output 12/26/16 12/27/16 12/27/16 18:59 06:59 18:59 Intake Total 440 600 180 Output Total 775 175 Balance -335 425 180 Intake: IV 240 600 Heparin Sodium,Porcine/ 240 D5w Pmx 25,000 unit In Dextrose/Water 1 500ml. bag @ 12 UNITS/KG/HR 17. 09 mls/hr IV .Q24H [facility] Rx #:[id number] Sodium Chloride 0.9% 1, 240 360 000 ml @ 30 mls/hr IV . Q24H [facility] Rx#:[id number] Intake, IV Titration 200 Amount Meropenem 1 gm In Sodium 100 Chloride 0.9% 100 ml @ 200 mls/hr IVPB Q12HR [facility] Rx#:[id number] Sodium Chloride 0.9% 1, 100 000 ml @ 30 mls/hr IV . Q24H [facility] Rx#:[id number] Oral 180 Output: Drainage 175 Right Lateral Side 175 Biliary Drain Urine 775 Other: Voiding Method Indwelling Catheter Urinal Urinal # Voids 2 - Exam Head exam was generally normal. There was no scleral icterus or corneal arcus. Mucous membranes were moist.Neck was supple and without jugular venous distension, thyromegaly, or carotid bruits. Carotids were easily palpable bilaterally. There was no adenopathy. Lungs revealed minimal fine crackles at the bases, no rhonchi, no wheezes. Heart sounds are irregular and there is frequent premature atrial beats, positive S1-S2 and there is no significant murmurs appreciated. Abdomen is soft and there is a cholecystostomy tube in the right upper quadrant area. Minimal right upper quadrant direct tenderness. No rebound and some guarding. Bowel sounds are hypoactive. Extremities are showing diminished pulses and there is no cyanosis or clubbing. Neurologically the patient is awaiting alert and there is no focal neurological deficits. - Labs CBC & Chem 7: 12/27/16 06:26 12/27/16 06:26 Labs: Abnormal Lab Results - Last 24 Hours (Table) 12/27/16 12/27/16 12/27/16 Range/Units 06:26 06:26 06:26 MCHC 30.2 L (31.0-37.0) g/dL RDW 16.7 H (11.5-15.5) % Plt Count 92 L (150-450) k/uL APTT 58.1 H (22.0-30.0) sec BUN 53 H (9-20) mg/dL Calcium 7.5 L (8.4-10.2) mg/dL Total Bilirubin 2.0 H (0.2-1.3) mg/dL AST 387 H (17-59) U/L ALT 1110 H (21-72) U/L Total Protein 6.0 L (6.3-8.2) g/dL Albumin 2.9 L (3.5-5.0) g/dL Microbiology - Last 24 Hours (Table) 12/23/16 17:10 Gram Stain - Preliminary Aspirate Body Fluid Culture - Preliminary Assessment and Plan Plan: 1 sepsis likely secondary to an acute cholecystitis, status post percutaneous cholecystostomy tube drainage. The patient is currently being resuscitated IV fluids and the patient is covered with a combination of Levaquin and Flagyl. Cultures from the biliary fluid are negative. 2 hypotension currently on no pressors and the patient is being gently hydrated with IV fluids. Urine output is diminished at this point 3 acute kidney injury on top of chronic renal failure with a creatinine of 2.1 and secondary oligoria, rule out secondary to hypotension/sepsis, improving, creatinine is better today. On 12/26/2016. 4 acute non-STEMI in the setting of hypotension and sepsis and EKG showing normal sinus rhythm with frequent PVCs and there is no ST segment elevation or depressions. 5 coronary artery disease with previous carotid bypass surgery 6 advanced COPD with chronic hypoxic and hypercapnic respiratory failure. The patient is a CO2 retainer and has compensated 3 metabolic alkalosis at baseline with a bicarb level of around 33 to 37 7 lactic acidosis secondary to sepsis. The patient has an anion gap metabolic acidosis at this point 8 lung cancer status post right bilobar resection for non-small cell lung cancer in 1999 9 abdominal aortic aneurysm repaired surgically 10 carotid endarterectomy for carotid artery disease 11 dementia 12 hyperlipidemia 13 hypertension 14 diverticular disease 15 diarrhea with a negative C. 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 This will have to be addressed again by surgery and gastroenterology on the case. 17 chronic congestive heart failure with bilateral pleural effusions, hence patient will be given a gentle diuresis today. 18 recurrent episodes of hypercapnic respiratory failure secondary to underlying COPD requiring BiPAP intermittently. Recommendation: Continue present treatment plan, continue antibiotics, all his labs including his CBC, electrolytes, renal profile, liver profile, are all showing improvement. Consider discharge planning in the next 24 hours, patient will likely go home with the biliary tube in place, and this will be addressed by surgery on outpatient basis. Patient will be cleared from my perspective for possible discharge planning in the next 24 hours. The pancreatic mass has not been mentioned or addressed by gastroenterology and general surgery, hopefully that will be addressed on an outpatient basis at least. Time with Patient: Less than 30
[2016-12-27] MEDS: HEPARIN SODIUM,PORCINE/D5W PMX 25,000 UNIT in DEXTROSE/WATER 1 500ML.BAG IV SCH (12:02)
[2016-12-27] MEDS: SODIUM CHLORIDE 0.9% 1,000 ML IV SCH (12:03)
--- NOTE | 2016-12-27 13:10 | P.PN ---
Subjective Patient is seen in follow-up for acute kidney injury. Renal function continues to improve with creatinine down to 1.25. He is currently being treated for acute cholecystitis and has a biliary drain in place. He is nonoliguric. He would like his diet advanced. No vomiting. Stools are soft. Vital signs are stable. General: The patient appeared well nourished and normally developed. HEENT: Head exam is unremarkable. Neck is without jugular venous distension. LUNGS: Lungs are clear to auscultation and percussion. Breath sounds decreased. HEART: Rate and Rhythm are regular. First and second heart sounds normal. No murmurs, rubs or gallops. ABDOMEN: Abdominal exam reveals normal bowel sounds. Non-tender and non- distended. No evidence of peritonitis. EXTREMITITES: No clubbing, cyanosis, or edema. Objective - Vital Signs Vital signs: Vital Signs Temp 96.6 F L 12/27/16 11:15 Pulse 61 12/27/16 11:15 Resp 20 12/27/16 11:15 BP 111/52 12/27/16 11:15 Pulse Ox 95 12/27/16 11:15 Intake & Output 12/26/16 12/27/16 12/27/16 18:59 06:59 18:59 Intake Total 440 600 657.988 Output Total 775 175 Balance -335 425 657.988 Intake: IV 240 600 Heparin Sodium,Porcine/ 240 D5w Pmx 25,000 unit In Dextrose/Water 1 500ml. bag @ 12 UNITS/KG/HR 17. 09 mls/hr IV .Q24H [facility] Rx #:[id number] Sodium Chloride 0.9% 1, 240 360 000 ml @ 30 mls/hr IV . Q24H [facility] Rx#:[id number] Intake, IV Titration 200 477.988 Amount Heparin Sodium,Porcine/ 477.988 D5w Pmx 25,000 unit In Dextrose/Water 1 500ml. bag @ 12 UNITS/KG/HR 17. 09 mls/hr IV .Q24H [facility] Rx #:[id number] Meropenem 1 gm In Sodium 100 Chloride 0.9% 100 ml @ 200 mls/hr IVPB Q12HR [facility] Rx#:[id number] Sodium Chloride 0.9% 1, 100 000 ml @ 30 mls/hr IV . Q24H [facility] Rx#:[id number] Oral 180 Output: Drainage 175 Right Lateral Side 175 Biliary Drain Urine 775 Other: Voiding Method Indwelling Catheter Urinal Urinal # Voids 2 - Labs CBC & Chem 7: 12/27/16 06:26 12/27/16 06:26 Labs: Abnormal Lab Results - Last 24 Hours (Table) 12/27/16 12/27/16 12/27/16 Range/Units 06:26 06:26 06:26 MCHC 30.2 L (31.0-37.0) g/dL RDW 16.7 H (11.5-15.5) % Plt Count 92 L (150-450) k/uL APTT 58.1 H (22.0-30.0) sec BUN 53 H (9-20) mg/dL Calcium 7.5 L (8.4-10.2) mg/dL Total Bilirubin 2.0 H (0.2-1.3) mg/dL AST 387 H (17-59) U/L ALT 1110 H (21-72) U/L Total Protein 6.0 L (6.3-8.2) g/dL Albumin 2.9 L (3.5-5.0) g/dL Microbiology - Last 24 Hours (Table) 12/23/16 17:10 Gram Stain - Preliminary Aspirate Body Fluid Culture - Preliminary Assessment and Plan Plan: Assessment: #1. Nonoliguric acute kidney injury secondary to ATN secondary to sepsis. Improving. Creatinine 1.25 today. #2. Respiratory acidosis. Improved with BiPAP. #3. Mild volume overload. Improving. #4. Acute cholecystitis with cholecystostomy tube. Currently on meropenem. Avoid nephrotoxic agents and hypotensive episodes. #5. Transaminitis. Improving. Plan: Maintain Lasix 40 mg twice daily for now. Advance diet per surgical recommendations. Avoid nephrotoxic agents and hypotensive episodes. Can transition over to oral diuretics in the next 24-48 hours.
--- NOTE | 2016-12-27 14:57 | P.PN ---
Subjective Principal diagnosis: Cholecystitis This is an 81-year-old gentleman who presented to the hospital with cholecystitis. On the telemetry patient continues to have brief runs of ventricular tachycardia, nonsustained. Amiodarone was discontinued yesterday by Dr. Lawanda Maxwell. Patient is sitting up in the chair today at the time of his examination, no overt complaints. Objective - Vital Signs Vital signs: Vital Signs Temp 96.6 F L 12/27/16 11:15 Pulse 73 12/27/16 13:21 Resp 20 12/27/16 11:15 BP 111/52 12/27/16 11:15 Pulse Ox 95 12/27/16 11:15 Intake & Output 12/26/16 12/27/16 12/27/16 18:59 06:59 18:59 Intake Total 272 449 1807.988 Output Total 775 175 Balance -452 282 0276.988 Intake: IV 240 600 373 Heparin Sodium,Porcine/ 240 133 D5w Pmx 25,000 unit In Dextrose/Water 1 500ml. bag @ 12 UNITS/KG/HR 17. 09 mls/hr IV .Q24H [facility] Rx #:[id number] Sodium Chloride 0.9% 1, 240 360 240 000 ml @ 30 mls/hr IV . Q24H [facility] Rx#:[id number] Intake, IV Titration 200 477.988 Amount Heparin Sodium,Porcine/ 477.988 D5w Pmx 25,000 unit In Dextrose/Water 1 500ml. bag @ 12 UNITS/KG/HR 17. 09 mls/hr IV .Q24H [facility] Rx #:[id number] Meropenem 1 gm In Sodium 100 Chloride 0.9% 100 ml @ 200 mls/hr IVPB Q12HR [facility] Rx#:[id number] Sodium Chloride 0.9% 1, 100 000 ml @ 30 mls/hr IV . Q24H [facility] Rx#:[id number] Oral 180 Output: Drainage 175 Right Lateral Side 175 Biliary Drain Urine 775 Other: Voiding Method Indwelling Catheter Urinal Urinal # Voids 2 - Exam PHYSICAL EXAMINATION: HEENT: Head is atraumatic, normocephalic. Pupils equal, round. Neck is supple. There is no elevated jugular venous pressure. HEART EXAMINATION: Heart S1 and S2 systolic murmur is heard. CHEST EXAMINATION: Lungs are clear to auscultation and precussion. No chest wall tenderness is noted on palpation or with deep breathing. ABDOMEN: Soft, nontender. Bowel sounds are heard. No organomegaly noted. EXTREMITIES: 2+ peripheral pulses with no evidence of peripheral edema and no calf tenderness noted. NEUROLOGIC patient is awake, alert and oriented -3. . - Labs CBC & Chem 7: 12/27/16 06:26 12/27/16 06:26 Labs: Abnormal Lab Results - Last 24 Hours (Table) 12/27/16 12/27/16 12/27/16 Range/Units 06:26 06:26 06:26 MCHC 30.2 L (31.0-37.0) g/dL RDW 16.7 H (11.5-15.5) % Plt Count 92 L (150-450) k/uL APTT 58.1 H (22.0-30.0) sec BUN 53 H (9-20) mg/dL Calcium 7.5 L (8.4-10.2) mg/dL Total Bilirubin 2.0 H (0.2-1.3) mg/dL AST 387 H (17-59) U/L ALT 1110 H (21-72) U/L Total Protein 6.0 L (6.3-8.2) g/dL Albumin 2.9 L (3.5-5.0) g/dL Microbiology - Last 24 Hours (Table) 12/23/16 17:10 Gram Stain - Preliminary Aspirate Body Fluid Culture - Preliminary Assessment and Plan (1) Lung cancer Status: Acute (2) Dementia Status: Acute (3) Hyperlipemia Status: Acute (4) NSVT (nonsustained ventricular tachycardia) Status: Acute (5) Acute cholecystitis Status: Acute (6) Elevated liver enzymes Status: Acute (7) Non-ST elevated myocardial infarction Status: Acute (8) Sepsis Status: Acute (9) ARF (acute renal failure) Status: Acute Plan: From cardiology's perspective, we will continue the patient on his current medications. We will follow him with you now on an as-needed basis only, please state any questions DNP note has been reviewed, I agree with a documented findings and plan of care. Patient was seen and examined.
--- NOTE | 2016-12-27 17:37 | PN ---
DATE OF SERVICE: 12/27/2016 Patient is an 81-year-old pleasant white male admitted to the hospital with severe sepsis and questionable cholecystitis. He underwent a cholecystostomy with tube placement at the time of admission to the hospital and subsequently developed acute ischemic hepatitis. We were consulted for elevated serum transaminases. The patient was just transferred from the ICU yesterday. He is doing much better. He states that the cholecystostomy tube accidentally fell off this morning. However, he continues to do well. Denies any abdominal pain. No nausea. No vomiting. No fever, chills or night sweats. On physical examination he appears comfortable. Blood pressure 111/52, pulse rate 61, temperature 96.6. HEENT EXAMINATION: Unremarkable. Conjunctivae pink. Sclerae anicteric. Oral cavity with no lesions. NECK: No JVD or lymph node enlargement. Chest was clear to auscultation. HEART: Regular rate and rhythm. ABDOMEN: Soft. Bowel sounds are positive. No organomegaly. EXTREMITIES: No pedal edema. SKIN: No rashes. NEURO: Alert and oriented x3. No focal deficits. LABS FROM TODAY: BUN is 53, creatinine 1.25. Bilirubin is 2. AST 387. ALT 1110. Alkaline phosphatase is normal. IMPRESSION: 1. Acute ischemic hepatitis, gradually improving, probably related to prolonged hypotension and septic shock. Serum transaminases have significantly improved today. 2. Sepsis/septic shock, resolving. At present on broad-spectrum antibiotics. 3. Questionable acute cholecystitis, status post cholecystostomy tube placement 3 days ago while he was in the ICU. Surgery is following the patient closely. RECOMMENDATIONS: 1. Avoid hepatotoxic medications. 2. Repeat labs in the morning. If they are improving, he can be discharged home with outpatient followup in 2 weeks.
[2016-12-28 04:20] LABS: Glucose,Whole Blood 100 mg/dL (75-99)
[2016-12-28 06:50] LABS: Anisocytosis Slight; Basophils % (A) 0 %; Eosinophils # (A) 0.1 k/uL (0-0.7); Eosinophils % (A) 1 %; Hypochromasia Slight; Luc % (Auto) 3; MCHC 31.1 g/dL (31.0-37.0); Macrocytosis Slight
[2016-12-28 06:59] LABS: CH 29.6; CHCM 30.5; HCT 45.6 % (39.0-53.0); HDW 2.47; HGB 14.2 gm/dL (13.0-17.5); Luc # (Auto) 0.26; Lymphocytes # (A) 1.3 k/uL (1.0-4.8); Lymphocytes % (A) 17 %; MCH 30.4 pg (25.0-35.0); MCV 97.7 fL (80.0-100.0); Mean Platelet Volume 9.5; Monocytes # (A) 0.8 k/uL (0-1.0); Monocytes % (A) 11 %; Neutrophils # (A) 5.1 k/uL (1.3-7.7); Neutrophils % (A) 67 %; RBC 4.67 m/uL (4.30-5.90); RDW 16.8 % (11.5-15.5); WBC 7.5 k/uL (3.8-10.6)
[2016-12-28 08:00] LABS: ALT 805 U/L (21-72); AST 253 U/L (17-59); Alkaline Phosphatase 95 U/L (38-126); Anion Gap 10 mmol/L; Blood Urea Nitrogen 44 mg/dL (9-20); Carbon Dioxide 36 mmol/L (22-30); Chloride 93 mmol/L (98-107); Glucose 103 mg/dL (74-99); Non-African American GFR(MDRD) >60 (>60 ml/min/1.73 sqM); Potassium 3.5 mmol/L (3.5-5.1); Sodium 139 mmol/L (137-145); Total Bilirubin 2.3 mg/dL (0.2-1.3); Total Protein 6.1 g/dL (6.3-8.2)
[2016-12-28] MEDS: BUDESONIDE 0.5 MG/2 ML NEBU INHALATION SCH (08:37)
[2016-12-28] MEDS: IPRATROPIUM 0.5 MG/2.5 ML NEBU INHALATION SCH ×2 (08:37→11:26)
[2016-12-28] MEDS: FORMOTEROL FUMARATE 20 MCG/2 ML NEBU INHALATION SCH (08:37)
[2016-12-28] MEDS: LEVALBUTEROL NEB (CONC) 1.25 MG/0.5 ML AMP INHALATION SCH ×2 (08:38→11:25)
[2016-12-28 08:43] VITALS: RESP 18
[2016-12-28 09:28] VITALS: TEMP 96.5
[2016-12-28] MEDS: MEROPENEM 1 GM in SODIUM CHLORIDE 0.9% 100 ML IVPB SCH (09:28)
[2016-12-28] MEDS: DONEPEZIL 10 MG TAB PO SCH (09:29)
[2016-12-28] MEDS: ESCITALOPRAM 10 MG TAB PO SCH (09:29)
[2016-12-28] MEDS: hydrALAZINE HCL 25 MG TAB PO SCH (09:29)
[2016-12-28] MEDS: PANTOPRAZOLE 40 MG/10 ML VIAL IVP SCH (09:30)
[2016-12-28] MEDS: METOPROLOL TARTRATE 12.5 MG TAB PO SCH (09:30)
[2016-12-28] MEDS: FUROSEMIDE 10 MG/ML 4 ML VIAL IV SCH (09:30)
[2016-12-28] MEDS: SODIUM CHLORIDE 0.9% 1,000 ML IV SCH (12:04)
[2016-12-28 12:06] VITALS: BP 127/58; PULSE 72
--- NOTE | 2016-12-28 12:14 | PN ---
Patient is seen for followup for acute kidney injury. His renal function has significantly improved with serum creatinine now down to 1.0 from 2.15 mg/dL. Patient had ATN secondary to hypotension and sepsis. His cholecystostomy tube apparently fell off. He is currently sitting up and having a sponge bath. Patient denies any complaints. On examination, blood pressure is 144/64, heart rate 74 per minute. He is afebrile. EXAMINATION OF THE HEART: S1 and S2. EXAMINATION OF THE LUNGS: Bilateral breath sounds are heard. ABDOMEN: Soft, nontender. Examination of lower extremities shows edema 1+ bilaterally. Labs show serum creatinine 1.0, sodium 139, potassium 3.5. Hemoglobin 14.2 g/dL. ASSESSMENT: 1. Acute kidney injury, acute tubular necrosis, currently improved. 2. Mild volume overload maintained on IV Lasix. Renal function is stable. We may continue with the Lasix for now. 3. Sepsis and acute cholecystitis, status post cholecystostomy tube, which apparently fell off yesterday. Patient is being followed by GI. 4. Acute ischemic hepatitis, currently improving. PLAN: May continue with the Lasix. Repeat labs in a.m.
--- NOTE | 2016-12-28 12:20 | P.PN ---
Subjective Principal diagnosis: Acute sepsis secondary to acute cholecystitis. This is an 81-year-old male patient with advanced COPD, coronary artery disease , chronic hypoxic hypercapnic respiratory failure in addition to multiple other medical positive comorbidities with a baseline chronic renal failure, came into the emergency department with generalized weakness fatigue, nausea, and frequent bouts of diarrhea that was going on over the past 2-3 days. Yesterday for example the patient had at least 7-10 bouts of liquidy bowel movements. The patient came into the emergency department and he was tachycardic and hypotensive and his initial blood pressure was 80/64. He was given 500 mL of IV fluids to stabilize his blood pressure. He was having some vague diffuse abdominal pain more so on the right upper quadrant area. He had no chest pain. He was a mild degree of respiratory distress note that he has been chronically dyspneic related to his COPD. The patient was found to have significant abnormalities in his blood work. Specifically, he was found to have leukocytosis with a WBC count of 15.6, he was acidotic with a pH of 7.28, he was in acute on top of chronic renal failure knowing that his baseline creatinine is around 1.5 and his current creatinine is up to 2.1 and he was oliguric and he had obvious signs of diminished urine output. His lactic acid level was at 5.3 and the patient's troponin peaked at 5.3. His proBNP was more than 90,000. His chest x-ray showed thyromegaly and pulmonary vascular congestion and small bilateral pleural effusions. I discussed the case with emergency department physician. I also noted that the patient's liver function tests were quite abnormal with an AST of 961 and ALP of 761 and normal alkaline phosphatase and bilirubin. Nevertheless the ultrasound of the abdomen that was done in the emergency department showed changes consistent with acute cholecystitis and gallbladder wall thickening and right kidney was atrophic with multi cysts and there was no evidence of hydronephrosis. The patient was started on examination of Levaquin and Flagyl. Surgical consultation was obtained. The patient obviously was not a good surgical candidate for any surgical intervention. At that point I contacted interventional radiology will proceed with a percutaneous drainage of the gallbladder. A total of 200 mL of fluid was aspirated and the fluid was sent for microbial cultures. At this point in time, patient is in the intensive care unit. His systolic blood pressures the mid 90s. No change in mental status. No chest pain. His chronic shortness of breath as mentioned. His urine output is diminished still. No chest pain. No significant abdominal pain. The cholecystostomy tube is in good location and is actively draining. Patient was reevaluated today on 12/24/2016, seems to be doing better clinically , hemodynamically stable, however his liver enzymes are taking a significant sharp rise. And the drainage from the biliary tube seems to be normal biliary drainage, does not seem to be purulent at all. Hence we'll recommend ultrasound of the liver, and possible GI consultation, I'm wondering of the patient will eventually need ERCP. Discussed his condition with the surgeon on the case, and she felt basically the same. Labs showed WBC count of 14.0 hemoglobin 14.8. Transaminases are elevated. BUN is 60 creatinine 2.36 lactic acid is 2.8 AST is 2310 ALT is 2171 alkaline phosphatase is 79 troponin is 3.510 liver ultrasound showed small ascites, liver was homogeneous no focal mass. Pancreatic mass is not seen on ultrasound. This was reported as an addendum on the last CT of the abdomen, apparently this was not addressed by gastroenterology and by general surgery on the case, I went back to the old report of the CT of the abdomen which was done on 06/07/2016, there was a mention of a cystic focus associated with the pancreas measuring 3.5 cm and at that time it was reported to be smaller in size compared to January of 2016. Reevaluated today on 12/25/2016, patient is feeling much better clinically, chest x-ray is suggestive of mild congestive heart failure with bilateral pleural effusions, liver enzymes seem to be improving and as per GI these were felt to be related to hypoperfusion of state. Patient's cultures are negative from the biliary drainage tube. Patient is requesting to eat, and I will start him today on full liquid diet. Still no mention of the pancreatic mass that was mentioned on the CT of the abdomen, I would like to take that up with the surgery staff and GI staff on the case. Considering his abnormal chest x-ray today, I recommended one dose of Lasix to be given 40 mg IV push 1. Reevaluated today on 12/26/2016, patient developed worsening of his pulmonary status last night, he required to be placed on BiPAP. He also developed worsening congestive heart failure based on the chest x-ray this morning, and he developed cardiac arrhythmia in the form of ventricular tachycardia nonsustained, and he was placed on amiodarone drip. He is presently on amiodarone drip. Off BiPAP, and before placement on BiPAP his pCO2 was as high as 90, and his pH was 7.11. PO2 was 125 at the time. And this was on 100% nonrebreather mask. Labs today were reviewed basic metabolic profile is normal BUN is 58 creatinine is 1.47 slightly improved compared to baseline. CBC is relatively unremarkable. Patient tells me today that he is feeling much better , and after reviewing the chest x-ray I recommended more diuretics in the form of Lasix 40 mg IV push every 12 hours. Patient was reevaluated today on 12/27/2016, seems to be doing much better, breathing a lot easier. Presently, no cough no wheezing no shortness of breath , continues to have his cholecystostomy tube in place, and a draining mostly bile. Cultures remained negative on the biliary drainage. No chest x-ray was done today, but clinically the patient is doing well from the pulmonary perspective. Remains on diuretics for intermittent episodes of congestive heart failure. Remains on bronchodilators for underlying COPD. Reevaluated today on 12/28/2016, patient continues to do well, no major complaints, I believe patient is about ready to be discharged home. Pulmonary- small I will clear him for discharge, patient is to be cleared by the different consultants on the case. Again the patient should have follow-up regarding his pancreatic mass with surgery and gastroenterology. CBC is relatively normal electrolytes and renal profile are normal. His creatinine is almost back to baseline. Objective - Vital Signs Vital signs: Vital Signs Temp 96.5 F L 12/28/16 09:00 Pulse 72 12/28/16 12:00 Resp 18 12/28/16 12:00 BP 127/58 12/28/16 12:00 Pulse Ox 97 12/28/16 12:00 Intake & Output 12/27/16 12/28/16 12/28/16 18:59 06:59 18:59 Intake Total 1570.988 915 540 Balance 1570.988 915 540 Weight 76.7 kg Intake: IV 373 135 Heparin Sodium,Porcine/ 133 45 D5w Pmx 25,000 unit In Dextrose/Water 1 500ml. bag @ 12 UNITS/KG/HR 17. 09 mls/hr IV .Q24H [facility] Rx #:[id number] Sodium Chloride 0.9% 1, 240 90 000 ml @ 30 mls/hr IV . Q24H [facility] Rx#:[id number] Intake, IV Titration 477.988 Amount Heparin Sodium,Porcine/ 477.988 D5w Pmx 25,000 unit In Dextrose/Water 1 500ml. bag @ 12 UNITS/KG/HR 17. 09 mls/hr IV .Q24H [facility] Rx #:[id number] Oral 720 780 540 Other: Voiding Method Urinal Urinal Urinal # Voids 3 1 # Bowel Movements 1 - Exam Head exam was generally normal. There was no scleral icterus or corneal arcus. Mucous membranes were moist.Neck was supple and without jugular venous distension, thyromegaly, or carotid bruits. Carotids were easily palpable bilaterally. There was no adenopathy. Lungs revealed minimal fine crackles at the bases, no rhonchi, no wheezes. Heart sounds are irregular and there is frequent premature atrial beats, positive S1-S2 and there is no significant murmurs appreciated. Abdomen is soft and there is a cholecystostomy tube in the right upper quadrant area. Minimal right upper quadrant direct tenderness. No rebound and some guarding. Bowel sounds are hypoactive. Extremities are showing diminished pulses and there is no cyanosis or clubbing. Neurologically the patient is awaiting alert and there is no focal neurological deficits. - Labs CBC & Chem 7: 12/28/16 06:14 12/28/16 06:14 Labs: Abnormal Lab Results - Last 24 Hours (Table) 12/28/16 12/28/16 12/28/16 Range/Units 02:28 06:14 06:14 RDW 16.8 H (11.5-15.5) % Plt Count 87 L (150-450) k/uL Chloride 93 L (98-107) mmol/L Carbon Dioxide 36 H (22-30) mmol/L BUN 44 H (9-20) mg/dL Glucose 103 H (74-99) mg/dL POC Glucose (mg/dL) 100 H (75-99) mg/dL Calcium 8.0 L (8.4-10.2) mg/dL Total Bilirubin 2.3 H (0.2-1.3) mg/dL AST 253 H (17-59) U/L ALT 805 H (21-72) U/L Total Protein 6.1 L (6.3-8.2) g/dL Albumin 2.9 L (3.5-5.0) g/dL Microbiology - Last 24 Hours (Table) 12/23/16 17:10 Gram Stain - Final Aspirate Body Fluid Culture - Final Assessment and Plan Plan: 1 sepsis likely secondary to an acute cholecystitis, status post percutaneous cholecystostomy tube drainage. The patient is currently being resuscitated IV fluids and the patient is covered with a combination of Levaquin and Flagyl. Cultures from the biliary fluid are negative. 2 hypotension currently on no pressors and the patient is being gently hydrated with IV fluids. Urine output is diminished at this point 3 acute kidney injury on top of chronic renal failure with a creatinine of 2.1 and secondary oligoria, rule out secondary to hypotension/sepsis, improving, creatinine is better today. On 12/26/2016. 4 acute non-STEMI in the setting of hypotension and sepsis and EKG showing normal sinus rhythm with frequent PVCs and there is no ST segment elevation or depressions. 5 coronary artery disease with previous carotid bypass surgery 6 advanced COPD with chronic hypoxic and hypercapnic respiratory failure. The patient is a CO2 retainer and has compensated 3 metabolic alkalosis at baseline with a bicarb level of around 33 to 37 7 lactic acidosis secondary to sepsis. The patient has an anion gap metabolic acidosis at this point 8 lung cancer status post right bilobar resection for non-small cell lung cancer in 1999 9 abdominal aortic aneurysm repaired surgically 10 carotid endarterectomy for carotid artery disease 11 dementia 12 hyperlipidemia 13 hypertension 14 diverticular disease 15 diarrhea with a negative C. 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 This will have to be addressed again by surgery and gastroenterology on the case. 17 chronic congestive heart failure with bilateral pleural effusions, hence patient will be given a gentle diuresis today. 18 recurrent episodes of hypercapnic respiratory failure secondary to underlying COPD requiring BiPAP intermittently. Recommendation: Agree with the overall present treatment plan, consider discharge planning home today. Follow-up with be on outpatient basis. Again the patient needs follow-up regarding his pancreatic mass with surgery or gastroenterology. Time with Patient: Less than 30
--- NOTE | 2016-12-28 13:00 | P.PN ---
Progress Note - Text The patient's biliary drain came out yesterday. He's been tolerating a diet with no abdominal pain. Abdomen: Soft and nontender Lab: Liver function tests are coming down Assessment: Shock liver, initial concern of cholecystitis Plan: The patient is nonsurgical. He had no evidence of cholelithiasis or common bile duct dilation. The elevated liver function tests and tenderness are likely on the basis of a shock liver. He shows no signs of adverse effects of the cholecystostomy tube coming out laterally. We'll follow up on a when necessary basis.
[2016-12-28 13:30] VITALS: BMI 28.1
--- NOTE | 2016-12-28 16:17 | DS ---
DATE OF ADMISSION: 12/23/2016 DATE OF DISCHARGE: Patient is an 81-year-old gentleman who was admitted for severe sepsis secondary to acute cholecystitis and appears to be secondary to ascending cholangitis and patient had a biliary drain which was discontinued yesterday. Patient has minimally elevated bilirubin compared to yesterday and liver enzymes are coming down at this point of time. Patient was evaluated by Surgery and cleared for discharge. Patient will be discharged on Augmentin. Patient was seen and examined on the day of discharge. Vitals are stable. GENERAL: The patient is alert and oriented x3, not in any acute distress. Well developed, well nourished. HEENT: Pupils are round and equally reacting to light. EOMI. No scleral icterus. No conjunctival pallor. Normocephalic, atraumatic. No pharyngeal erythema. No thyromegaly. CARDIOVASCULAR: S1 and S2 present. No murmurs, rubs, or gallops. PULMONARY: Chest is clear to auscultation, no wheezing or crackles. ABDOMEN: Soft, nontender, nondistended, normoactive bowel sounds. No palpable organomegaly. MUSCULOSKELETAL: No joint swelling or deformity. EXTREMITIES: No cyanosis, clubbing, or pedal edema. NEUROLOGICAL: Gross neurological examination did not reveal any focal deficits. SKIN: No rashes. FINAL DIAGNOSES: 1. Sepsis secondary to ascending cholangitis and cholecystitis, status post biliary drain, which was discontinued. 2. Acute kidney injury on chronic kidney disease, stage II. Chronic kidney disease is probably related to hypertensive nephrosclerosis and acute kidney injury is secondary to sepsis and acute tubular necrosis, which is improved at this point of time. 3. Elevated troponins probably secondary to sepsis and type II [id number] myocardial infarction and demand ischemia. Patient was evaluated by Cardiology. 4. Coronary artery disease. 5. History of lung cancer, status post right bilobar resection in 1999 and in remission since then. 6. Abdominal aortic aneurysm repaired surgically in the past. 7. Dementia. 8. Hyperlipidemia. 9. Hypertension. 10. Diverticulosis. Patient will be discharged today. Please refer to my depart summary for list of discharge medications. Discharge diet cardiac. Activity as tolerated. Patient has chronic diastolic dysfunction with acute exacerbation. Lasix recommendations as per Nephrology. Patient will be discharged on 40 b.i.d. of Lasix for 3 days followed by 40 daily as per their recommendation. Patient will not need any metolazone as per their recommendation. Patient will follow with Dr. Cho in a week, Dr. Trevor Chen on January 02 at 9:40, Cardiology as scheduled. Patient is being discharged home with home care. Spent greater than 35 minutes in total discharge process.
[2016-12-28] MEDS ORDERED: HEPARIN SODIUM,PORCINE 5,000 UNIT/ML 1 ML VIAL SQ SCH (21:00)
== END 2016-12-28 16:36 | disposition home health service (06) | DRG 871 ==
LOC: EC 09:20 → 6ICU 13:11 → 6SEL 12-26 17:52
PROVIDERS: ADMIT Family Medicine; ATTEND Family Medicine
PROC: 0T9B70Z Drainage of Bladder with Drainage Device, Via Natural or Artificial Opening (ICD-10-PCS; 2016-12-23)
PROC: 0F9430Z Drainage of Gallbladder with Drainage Device, Percutaneous Approach (ICD-10-PCS; principal; 2016-12-24)
DX: A41.9 Sepsis, unspecified organism (principal); N17.0 Acute kidney failure with tubular necrosis; I21.4 Non-ST elevation (NSTEMI) myocardial infarction; R65.21 Severe sepsis with septic shock; I50.33 Acute on chronic diastolic (congestive) heart failure; G93.41 Metabolic encephalopathy; I47.2 Ventricular tachycardia; E87.4 Mixed disorder of acid-base balance; I95.9 Hypotension, unspecified; J96.11 Chronic respiratory failure with hypoxia; K83.0 Cholangitis; I13.0 Hypertensive heart and chronic kidney disease with heart failure and stage 1 through stage 4 chronic kidney disease, or unspecified chronic kidney disease; J96.12 Chronic respiratory failure with hypercapnia; K81.0 Acute cholecystitis; I42.9 Cardiomyopathy, unspecified; R18.8 Other ascites; I27.2 Other secondary pulmonary hypertension; R74.0 Nonspecific elevation of levels of transaminase and lactic acid dehydrogenase [LDH]; K86.9 Disease of pancreas, unspecified; K82.8 Other specified diseases of gallbladder; R19.7 Diarrhea, unspecified; I49.1 Atrial premature depolarization; K57.90 Diverticulosis of intestine, part unspecified, without perforation or abscess without bleeding; N18.2 Chronic kidney disease, stage 2 (mild); F03.90 Unspecified dementia, unspecified severity, without behavioral disturbance, psychotic disturbance, mood disturbance, and anxiety; E78.5 Hyperlipidemia, unspecified; I25.10 Atherosclerotic heart disease of native coronary artery without angina pectoris; E87.5 Hyperkalemia; I25.2 Old myocardial infarction; J45.909 Unspecified asthma, uncomplicated; J44.9 Chronic obstructive pulmonary disease, unspecified; I49.3 Ventricular premature depolarization; R31.9 Hematuria, unspecified; E78.00 Pure hypercholesterolemia, unspecified; E03.9 Hypothyroidism, unspecified; H91.90 Unspecified hearing loss, unspecified ear; R53.1 Weakness; H54.7 Unspecified visual loss; E66.9 Obesity, unspecified; R34 Anuria and oliguria; Z99.81 Dependence on supplemental oxygen; Z79.82 Long term (current) use of aspirin; Z79.51 Long term (current) use of inhaled steroids; Z86.19 Personal history of other infectious and parasitic diseases; Z87.19 Personal history of other diseases of the digestive system; Z68.28 Body mass index [BMI] 28.0-28.9, adult; Z71.3 Dietary counseling and surveillance; Z90.2 Acquired absence of lung [part of]; Z98.42 Cataract extraction status, left eye; Z85.118 Personal history of other malignant neoplasm of bronchus and lung; Z87.891 Personal history of nicotine dependence; Z95.1 Presence of aortocoronary bypass graft; Z79.899 Other long term (current) drug therapy; Z86.79 Personal history of other diseases of the circulatory system; Z98.41 Cataract extraction status, right eye; Z86.69 Personal history of other diseases of the nervous system and sense organs
CPT/HCPCS: 36415; 36600; 51701; 71010; 71020; 75989; 76705; 80048; 80053; 80074; 81001; 82150; 82550; 82553; 82803; 82805; 83605; 83690; 83735; 83880; 84100; 84484; 85025; 85610; 85730; 87040; 87045; 87046; 87070; 87086; 87205; 87324; 87329; 89055; 93005; 93306; 94640; 94660; 94760; 96361; 96365; 96366; 96367; 96375; 96376; 99285